=== PATIENT | female | born 1930 | race Caucasian/White ===

== ENCOUNTER 2016-09-01 08:48 | Emergency (ER) | payer MEDICARE, OTHER ==
[2016-09-01] MEDS ORDERED: LISINOPRIL 5 MG TABLET PO STA (11:48)
[2016-09-01] MEDS ORDERED: LISINOPRIL 5 MG TABLET ONE (11:49)
[2016-09-01] MEDS ORDERED: FUROSEMIDE 20 MG TABLET PO STA (13:16)
[2016-09-01] MEDS ORDERED: FUROSEMIDE 20 MG TABLET ONE (13:23)
== END 2016-09-01 13:33 | disposition home or self-care (01) ==
DX: I11.0 Hypertensive heart disease with heart failure (principal); I50.9 Heart failure, unspecified
CPT/HCPCS: 36415; 71020; 80053; 83690; 83735; 83880; 84484; 85025; 93005; 93010; 99283; 99284; A9270

== ENCOUNTER 2016-11-11 08:27 | Emergency (ER) | payer MEDICARE, OTHER ==
--- NOTE | 2016-11-11 08:40 | ED Physician Documentation ---
PD HPI CHEST PAIN - Stated complaint Stated Complaint: R SIDE PAIN - Chief complaint Chief Complaint: General - History obtained from History obtained from: Patient - History of Present Illness Timing - onset: Last night, Yesterday Timing - onset during: Light activity Timing - duration: Days (06/22) Timing - details: Abrupt onset, Still present, Waxing and waning Quality: Aching, Sharp, Pain Location: Right chest (posterolateral ower ribs area.) Improved by: Rest Worsened by: Inspiration, Movement Associated symptoms: No: Shortness of air, Nausea, Feeling faint / dizzy, General Weakness, Palpitations, Cough Similar symptoms before: Has not had sx before Recently seen: Not recently seen Review of Systems Constitutional: denies: Fever, Chills, Myalgias Nose: denies: Rhinorrhea / runny nose, Congestion Throat: denies: Sore throat Cardiac: denies: Palpitations, Pedal edema, Calf pain Respiratory: denies: Cough, Wheezing GI: denies: Abdominal Pain, Nausea, Vomiting : denies: Dysuria, Frequency Skin: denies: Rash, Lesions Neurologic: denies: Focal weakness, Numbness PD PAST MEDICAL HISTORY - Past Medical History Past Medical History: Yes Cardiovascular: Hypertension Respiratory: None Neuro: None Endocrine/Autoimmune: None GI:  HEENT:  - Past Surgical History Past Surgical History: Yes 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 - Present Medications Home Medications: Ambulatory Orders Medication Instructions Recorded Confirmed Culturelle 0 mg PO DAILY 09/01/16 11/11/16 Hydrochlorothiazide 25 mg PO DAILY #30 tablet 09/01/16 11/11/16 Lisinopril 20 mg PO DAILY #30 tablet 09/01/16 11/11/16 Hydrocodone/Acetaminophen [[place] 1 each PO Q6H PRN #20 tablet 11/11/16 5-325 Tablet] Naproxen 375 mg PO BID #20 tablet 11/11/16 - Allergies Allergies/Adverse Reactions: Allergies Allergy/AdvReac Type Severity Reaction Status Date / Time No Known Drug Allergies Allergy Verified 11/11/16 08:35 - Social History Does the pt smoke?: No Smoking Status: Never smoker Does the pt drink ETOH?: Yes Does the pt have substance abuse?: No - Family History Family history: reports: Non contributory PD ED PE NORMAL - Vitals Vital signs reviewed: Yes - General General: Alert and oriented X 3, Well developed/nourished - HEENT HEENT: Ears normal, Pharynx benign - Neck Neck: Supple, no meningeal sign, No adenopathy - Cardiac Cardiac: RRR, No murmur - Respiratory Respiratory: Clear bilaterally - Abdomen Abdomen: Normal bowel sounds, Non tender, Non distended, No organomegaly - Back Back: No spinal TTP, Other (mild tender right posterolateral ribs about 9-11. No rash nor sores. ) - Derm Derm: Normal color, Warm and dry, No rash - Extremities Extremities: No tenderness to palpate, Normal ROM s pain, No edema, No calf tenderness / cord - Neuro Neuro: Alert and oriented X 3, No motor deficit, Normal speech - Psych Psych: Normal mood, Normal affect Results - Vitals Vitals: Vital Signs - 24 hr 11/11/16 11/11/16 08:31 10:52 Temperature 35.9 C L Heart Rate 102 H 84 Respiratory 20 18 Rate Blood Pressure 208/88 H 205/72 H O2 Saturation 97 95 Oxygen O2 Source Room air - Labs Labs: Laboratory Tests 11/11/16 09:54 Urine Color YELLOW Urine Clarity CLEAR Urine pH 5.5 Ur Specific [place] 1.025 Urine Protein NEGATIVE Urine Glucose (UA) NEGATIVE Urine Ketones NEGATIVE Urine Occult Blood NEGATIVE Urine Nitrite NEGATIVE Urine Bilirubin NEGATIVE Urine Urobilinogen 0.2 (NORMAL) Ur Leukocyte Esterase NEGATIVE Ur Microscopic Review NOT INDICATED Urine Culture Comments NOT INDICATED - Rads (name of study) chest Radiology: Prelim report reviewed, EMP read contemporaneously (no acute process) PD MEDICAL DECISION MAKING - ED course Complexity details: reviewed results, considered differential (Pain less with pain meds. BP coming down. She says BP is usually okay. CXR is okay. UA is good. ), d/w patient Departure - Departure Disposition: 01 Home, Self Care Clinical Impression: Right-sided chest pain, Elevated blood pressure reading Condition: Stable Record reviewed to determine appropriate education?: Yes Instructions: ED Chest Pain Pleurisy Follow-Up: Abelardo Hayes MD [Primary Care Provider] - Prescriptions: Naproxen 375 mg PO BID #20 tablet Hydrocodone/Acetaminophen [[place] 5-325 Tablet] 1 each PO Q6H PRN #20 tablet PRN Reason: Pain Comments: Activity as able based on comfort. Naproxen twice daily for 7-10 days. Add Tylenol or Hydrocodone as needed for pains. Recheck with PMD if not improving over the next couple of days, sooner if other symptoms develop. At least one of your blood pressure readings in the ER today was elevated above the normal level. If you have diagnosed high blood pressure in the past, please be sure you are taking your BP medications and eating low salt diet. If you do not have know high BP, then being high today does not mean it is a terminal makeup operator issue. It might be reactively high to the situation that has you here. You should follow up with your primary care to have the blood pressure checked again in the next few days/week or so to see if it is persistently high. If so, then you may need medication or changes in diet/lifestyle to treat it. Discharge Date/Time: 11/11/16 10:57
[2016-11-11] MEDS ORDERED: KETOROLAC 60 MG/2 ML VIAL IM STA (09:08)
[2016-11-11] MEDS ORDERED: HYDROcod/ACETAM 5/325 MG TABLET PO STA (09:09)
[2016-11-11] MEDS ORDERED: KETOROLAC 30 MG/ML VIAL ONE (09:10)
[2016-11-11] MEDS ORDERED: HYDROcod/ACETAM 5/325 MG TABLET ONE (09:11)
--- NOTE | 2016-11-11 09:58 | XRAY Preliminary Report ---
Exam: XR Chest 2 View PA/LAT IMPRESSION: No airspace disease evident. [facility] SITE ID: [id number]
--- NOTE | 2016-11-11 10:01 | XRAY Report ---
EXAM: CHEST RADIOGRAPHY EXAM DATE: 11/11/2016 09:23 AM. CLINICAL HISTORY: Acute Right chest pain with movement/bleeding. COMPARISON: 09/01/2016. TECHNIQUE: 2 views. FINDINGS: Lungs/Pleura: No focal opacities evident. No pleural effusion. No pneumothorax. Normal volumes. Mediastinum: Heart and mediastinal contours are unremarkable. Other: Lower thoracic spine degenerative changes. IMPRESSION: No airspace disease evident. [facility] Referring Provider Line: [phone] SITE ID: [id number]
[2016-11-11 10:16] LABS: BILIRUBIN,URINE NEGATIVE (NEGATIVE); PH,URINE 5.5 PH (5.0-7.5)
[2016-11-11 10:24] LABS: UA CHARGE (STRIP ONLY) YES; UR CULTURE IF IND NOT INDICATED
[2016-11-11 10:53] VITALS: BP 205/72
== END 2016-11-11 10:57 | disposition home or self-care (01) ==
LOC: ED 08:27
DX: R07.9 Chest pain, unspecified (principal); I10 Essential (primary) hypertension
CPT/HCPCS: 71020; 81003; 96372; 99283; A9270; 81001; 87086

== ENCOUNTER 2016-12-14 09:18 | Emergency (ER) | payer MEDICARE, OTHER ==
[2016-12-14 09:25] VITALS: BP 158/84
[2016-12-14] MEDS ORDERED: DEXAMETHASONE 10 MG/ML VIAL PO STA (09:49)
[2016-12-14] MEDS ORDERED: DEXAMETHASONE 10 MG/ML VIAL ONE (09:53)
[2016-12-14] MEDS ORDERED: CHERRY SYRUP 10 ML UDC PO ONE (09:53)
--- NOTE | 2016-12-14 10:03 | ED Physician Documentation ---
PD HPI HEENT - Stated complaint Stated Complaint: R FACE PX - Chief complaint Chief Complaint: Heent - History obtained from History obtained from: Patient, Family - History of Present Illness Timing - onset: How many days ago (3) Timing - duration: Days (3) Timing - details: Abrupt onset, Still present Location: Other (left TMJ) Improves: Other (time) Worsens: Other (chewing) Associated symptoms: Other (ear pain). No: Fever, Congestion, Rhinorrhea, Trismus, Unable to swallow, Swollen nodes, Facial swelling, Headache, Cough Similar symptoms before: Diagnosis (TMD) Recently seen: Emergency Dept - Additional information Additional information: 86 y/o female yawned hard and felt a pop or click in the left TMJ and subsequent pain in the joint. She has had this happen to her a number of times and usually this will resolve in 2 days. This is the third day and she has pain with attempting to eat this morning and she cannot chew on that side without pain. She reports that she is able to talk, has only a discomfort in the area at rest but pain is persistent with chewing. She has some facial asymmetry that is confirmed by her as always present and not changed. Review of Systems Constitutional: denies: Fever Eyes: denies: Decreased vision Ears: reports: Ear pain Nose: denies: Rhinorrhea / runny nose, Congestion Throat: reports: Other (left TMJ pain). denies: Sore throat Cardiac: denies: Chest pain / pressure, Palpitations Respiratory: reports: Dyspnea. 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 - Present Medications Home Medications: Ambulatory Orders Medication Instructions Recorded Confirmed Hydrochlorothiazide 25 mg PO DAILY #30 tablet 09/01/16 12/14/16 Lisinopril 20 mg PO DAILY #30 tablet 09/01/16 12/14/16 Hydrocodone/Acetaminophen [[place] 1 each PO Q6H PRN #20 tablet 11/11/16 12/14/16 5-325 Tablet] Naproxen 375 mg PO BID #20 tablet 11/11/16 12/14/16 Lactobacillus Acidophilus 1 tab PO DAILY 12/14/16 12/14/16 [Probiotic Acidophilus] - Allergies Allergies/Adverse Reactions: Allergies Allergy/AdvReac Type Severity Reaction Status Date / Time No Known Drug Allergies Allergy Verified 12/14/16 09:24 - Social History Does the pt smoke?: No Smoking Status: Never smoker Does the pt drink ETOH?: Yes Does the pt have substance abuse?: No PD ED PE NORMAL - Vitals Vital signs reviewed: Yes (tachy and hypertensive) - General General: Alert and oriented X 3, No acute distress, Well developed/nourished - HEENT HEENT: Atraumatic, PERRL, EOMI, Ears normal, Moist mucous membranes, Pharynx benign, Dentition benign, Other (There is mild tenderness at the left TMJ there is no swelling erythema or deformity. The joint moves through a ROM and she is able to open the mouth widely. The joint is not dislocated. ) - Neck Neck: Supple, no meningeal sign, No bony TTP - Respiratory Respiratory: No respiratory distress - Derm Derm: Normal color, Warm and dry, No rash - Extremities Extremities: No deformity, No edema - Neuro Neuro: No motor deficit, No sensory deficit - Psych Psych: Normal mood, Normal affect Results - Vitals Vitals: Vital Signs - 24 hr 12/14/16 09:22 Temperature 36.7 C Heart Rate 113 H Respiratory 14 Rate Blood Pressure 158/84 H O2 Saturation 100 Oxygen O2 Source Room air PD MEDICAL DECISION MAKING - ED course Complexity details: reviewed old records, reviewed results, re-evaluated patient , considered differential, d/w patient, d/w family ED course: 86 y/o female with pain in the left TMJ after a wide yaw typical with prior symptoms but not resolving in the usual time frame. She does not appear to have a locked jaw or dislocation but persistent pain and the pain is described by her as a discomfort. She is given a single dose of decadron in hopes of reduction in inflammation and resolution of symptoms. Departure - Departure Disposition: 01 Home, Self Care Clinical Impression: Temporal mandibular joint disorder Condition: Stable Instructions: TMD Pain Relief Methods, TMD Self Care Follow-Up: Abelardo Hayes MD [Primary Care Provider] -
== END 2016-12-14 10:32 | disposition home or self-care (01) ==
LOC: ED 09:18
DX: M26.602 Left temporomandibular joint disorder, unspecified (principal); I10 Essential (primary) hypertension
CPT/HCPCS: 99283; A9270

== ENCOUNTER 2017-06-05 09:22 | Emergency (ER) | payer MEDICARE, OTHER ==
[2017-06-05 09:35] VITALS: BP 167/83
[2017-06-05] MEDS ORDERED: DEXAMETHASONE 10 MG/ML VIAL PO STA (09:58)
--- NOTE | 2017-06-05 10:03 | ED Physician Documentation ---
History of Present Illness - Stated complaint Stated Complaint: SWOLLEN FINGER - Chief complaint Chief Complaint: General - History obtained from History obtained from: Patient - History of Present Illness Timing: How many days ago (3) - Additonal information Additional information: 87-year-old female is developed some pain in her right index finger with marked swelling starting about 3 days ago. She has swelling at the PIP and DIP joints as well as the MCP joint. She does not have any swelling over the dorsum of the hand she does not have any lymphangitic streaking. She does not have fever. She states the pain is exquisite and even slight touch to the skin or movement of the joint causes severe sharp pain. She does have a prior history of gout in her toe at one time. Review of Systems Constitutional: denies: Fever, Chills, Myalgias Eyes: denies: Decreased vision Ears: denies: Ear pain Nose: denies: Congestion Throat: denies: Sore throat Respiratory: denies: Cough GI: denies: Vomiting : denies: Dysuria Musculoskeletal: reports: Extremity pain, Joint pain, Joint swelling. 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 - Present Medications Home Medications: Ambulatory Orders Medication Instructions Recorded Confirmed Lisinopril 20 mg PO DAILY #30 tablet 09/01/16 12/14/16 hydroCHLOROthiazide 25 mg PO DAILY #30 tablet 09/01/16 12/14/16 [Hydrochlorothiazide] Hydrocodone/Acetaminophen [[place] 1 each PO Q6H PRN #20 tablet 11/11/16 12/14/16 5-325 Tablet] Naproxen 375 mg PO BID #20 tablet 11/11/16 12/14/16 Lactobacillus Acidophilus 1 tab PO DAILY 12/14/16 12/14/16 [Probiotic Acidophilus] HYDROcod/ACETAM 5/325 [[place] 5/325] 1 - 2 ea PO Q6H PRN #15 tablet 06/05/17 Indomethacin 25 mg PO Q6HR PRN #30 capsule 06/05/17 - Allergies Allergies/Adverse Reactions: Allergies Allergy/AdvReac Type Severity Reaction Status Date / Time No Known Drug Allergies Allergy Verified 12/14/16 09:24 - Social History Does the pt smoke?: No Smoking Status: Never smoker Does the pt drink ETOH?: Yes Does the pt have substance abuse?: No PD ED PE NORMAL - Vitals Vital signs reviewed: Yes (Hypertensive) - General General: Alert and oriented X 3, No acute distress, Well developed/nourished - HEENT HEENT: Atraumatic, PERRL, EOMI - Respiratory Respiratory: No respiratory distress - Derm Derm: Normal color, Warm and dry - Extremities Extremities: Other (There is swelling and erythema to the DIP IP and MCP joints separately. There is no swelling over the dorsum of the hand and no lymphangitic streaking. Distal neurovascular components are intact. There is exquisite pain to movement of the joints.) - Neuro Neuro: No motor deficit, No sensory deficit Eye Opening: Spontaneous Motor: Obeys Commands Verbal: Oriented GCS Score: 15 - Psych Psych: Normal mood, Normal affect Results - Vitals Vitals: Vital Signs - 24 hr 06/05/17 09:29 Temperature 36.4 C L Respiratory 16 Rate Blood Pressure 167/83 H O2 Saturation 96 Oxygen O2 Source Room air PD MEDICAL DECISION MAKING - ED course Complexity details: reviewed old records, considered differential, d/w patient, d/w family ED course: 87-year-old female with swelling to the right index finger over the joints appears to have an acute gouty attack. I do not think this represents any cellulitis. She is administered dexamethasone 10 mg orally here in the emergency department and we will place her on some indomethacin and give her some Vicodin for breakthrough pain. 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
[2017-06-05] MEDS ORDERED: CHERRY SYRUP 10 ML UDC PO ONE (10:06)
== END 2017-06-05 10:10 | disposition home or self-care (01) ==
LOC: ED 09:22
DX: M10.041 Idiopathic gout, right hand (principal); I10 Essential (primary) hypertension
CPT/HCPCS: 99283; A9270

== ENCOUNTER 2017-07-07 08:00 | Outpatient (CLI) | payer MEDICARE, OTHER | END 2017-07-07 08:01 | disposition home or self-care (01) | LOC: LAB.WCP 08:00 | PROVIDERS: ATTEND Physician Assistant Medical | DX: M10.00 Idiopathic gout, unspecified site (principal) | CPT/HCPCS: 87070; 87205 ==

== ENCOUNTER 2017-07-19 08:00 | Outpatient (CLI) | payer MEDICARE, OTHER | END 2017-07-19 08:01 | disposition home or self-care (01) | LOC: LAB.R 08:00 | PROVIDERS: ATTEND Physician Assistant Medical | DX: L03.019 Cellulitis of unspecified finger (principal) | CPT/HCPCS: 87070; 87205 ==

== ENCOUNTER 2017-08-25 20:39 | Outpatient (CLI) | payer MEDICARE, OTHER ==
[2017-08-25 19:05] LABS: CREATININE 1.5 mg/dL (0.4-1.0)
[2017-08-25 19:28] LABS: BILIRUBIN,URINE NEGATIVE (NEGATIVE); GLUCOSE, URINE (UA) NEGATIVE (NEGATIVE); KETONES,URINE (UA) NEGATIVE (NEGATIVE); LEUKOCYTE ESTERASE, URINE NEGATIVE (NEGATIVE); NITRITE,URINE NEGATIVE (NEGATIVE); OCCULT BLOOD,URINE NEGATIVE (NEGATIVE); PH,URINE 5.5 PH (5.0-7.5); PROTEIN,URINE NEGATIVE (NEGATIVE); UROBILINOGEN,URINE 0.2 (NORMAL) E.U./dL (NORMAL)
[2017-08-25 19:47] LABS: CLARITY,URINE CLEAR (CLEAR)
[2017-08-25 19:48] LABS: BACTERIA,URINE Rare /HPF (None Seen); RBC,URINE 0-5 /HPF (0-5); SQUAMOUS EPITHELIAL CELL,UR MANY Squamous (<= Few); YEAST,URINE PRESENT
== END 2017-08-25 20:40 | disposition home or self-care (01) ==
LOC: LAB.WCP 20:39
PROVIDERS: ATTEND Internal Medicine Rheumatology
DX: N18.9 Chronic kidney disease, unspecified (principal)
CPT/HCPCS: 36415; 81001; 82565; 84520

== ENCOUNTER 2017-10-20 08:00 | Outpatient (CLI) | payer MEDICARE, OTHER | END 2017-10-20 08:01 | disposition home or self-care (01) | LOC: LAB.WCP 08:00 | PROVIDERS: ATTEND Internal Medicine Rheumatology | DX: M10.9 Gout, unspecified (principal) | CPT/HCPCS: 36415; 84550 ==

== ENCOUNTER 2017-10-25 20:28 | Outpatient (CLI) | payer MEDICARE, OTHER | END 2017-10-25 20:29 | disposition EMS.NT | LOC: EMS 20:28 | PROVIDERS: ATTEND Surgery | DX: Z03.89 Encounter for observation for other suspected diseases and conditions ruled out (principal); W01.0XXA Fall on same level from slipping, tripping and stumbling without subsequent striking against object, initial encounter; Y92.003 Bedroom of unspecified non-institutional (private) residence as the place of occurrence of the external cause ==

== ENCOUNTER 2017-10-29 14:30 | Outpatient (CLI) | payer MEDICARE, OTHER | END 2017-10-29 14:31 | disposition critical access hospital (66) | LOC: EMS 14:30 | PROVIDERS: ATTEND Surgery | DX: R53.1 Weakness (principal); R47.9 Unspecified speech disturbances; R29.810 Facial weakness; R26.81 Unsteadiness on feet | CPT/HCPCS: A0425; A0427 ==

== ENCOUNTER 2017-10-29 14:43 | Inpatient (IN) | payer MEDICARE, OTHER ==
[2017-10-29 15:00] LABS: BASOPHILS # (AUTO) 0.1 10^3/uL (0.0-0.1); BASOPHILS % (AUTO) 0.6 %; EOSINOPHILS % (AUTO) 0.2 %; LYMPHOCYTES # (AUTO) 0.7 10^3/uL (1.5-3.5); LYMPHOCYTES % (AUTO) 7.8 %; MEAN CORPUSCULAR HEMOGLOBIN 28.2 pg (27.0-31.0); MEAN CORPUSCULAR HGB CONC 33.3 g/dL (32.0-36.0); MEAN CORPUSCULAR VOLUME 84.9 fL (81.0-99.0); MEAN PLATELET VOLUME 7.9 fL (7.9-10.8); MONOCYTES # (AUTO) 0.8 10^3/uL (0.0-1.0); MONOCYTES % (AUTO) 8.6 %; NEUTROPHILS % (AUTO) 82.8 %; PLT - PLATELET COUNT 312 10^3/uL (130-450); RED BLOOD COUNT 4.26 10^6/uL (4.20-5.40); RED CELL DISTRIBUTION WIDTH 18.4 % (12.0-15.0); WHITE BLOOD COUNT 9.6 x10^3/uL (4.8-10.8)
--- NOTE | 2017-10-29 15:04 | ED Physician Documentation ---
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, rx T3 she took the T3 and felt woozy found down 5 days ago by that night, fell on carpet, cause not know but thinks / T3 911 called and came and saw pt - no injury identified, no transport since then she has had slurred speech and diff walking needing assistance from to stand transfer ambulate and dress she also had slurred speech and seemed confused attributed sx to the new T3 rx sx getting worse over last 5 days so called 911 no WORKMAN no neck apin no chest pain no abd pain no fever cough NVD no dysuria Review of Systems Constitutional: denies: Fever, Chills Eyes: denies: Loss of vision Ears: denies: Loss of hearing Cardiac: denies: Chest pain / pressure Respiratory: denies: Dyspnea, Cough GI: reports: Constipation. denies: Abdominal Pain, Nausea, Vomiting, Diarrhea : denies: Dysuria Musculoskeletal: denies: Neck pain, Back pain Neurologic: reports: Focal weakness, Difficulty speaking. 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 - Present Medications Home Medications: Ambulatory Orders Medication Instructions Recorded Confirmed Lactobacillus Acidophilus 1 tab PO DAILY 12/14/16 10/29/17 [Probiotic Acidophilus] Allopurinol [Allopurinol] 200 mg PO DAILY 10/29/17 10/29/17 Cholecalciferol (Vitamin D3) 1,000 unit PO DAILY 10/29/17 10/29/17 [Vit[place]oy Daily D] Colchicine [Colchicine] 0.6 mg PO .EVERY OTHER DAY 10/29/17 10/29/17 Cyclobenzaprine HCl 10 mg PO TID PRN 10/29/17 10/29/17 Lisinopril [Lisinopril] 40 mg PO DAILY 05/11/18 05/11/18 Multivitamin [Theragran] 1 each PO DAILY 10/29/17 10/29/17 - Allergies Allergies/Adverse Reactions: Allergies Allergy/AdvReac Type Severity Reaction Status Date / Time No Known Drug Allergies Allergy Verified 12/14/16 09:24 - Social History Does the pt smoke?: No Smoking Status: Never smoker Does the pt drink ETOH?: Yes Does the pt have substance abuse?: No PD ED PE NORMAL - Vitals Vital signs reviewed: Yes - General General: No: Alert and oriented X 3 (little confused and agitated) - HEENT HEENT: PERRL. No: Atraumatic - Neck Neck: No bony TTP - Cardiac Cardiac: RRR - Respiratory Respiratory: No respiratory distress, Clear bilaterally, Other (L masectomy, large hard irreg R breast mass with necrotic appearing tissue at the nipple) - Abdomen Abdomen: Non tender - Derm Derm: Normal color - Extremities Extremities: No deformity, No tenderness to palpate - Neuro Neuro: No sensory deficit (diff to assess). 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, No motor deficit, Normal speech Eye Opening: Spontaneous Motor: Obeys Commands Verbal: Confused GCS Score: 14 - Psych Psych: Normal mood Results - Vitals Vitals: Vital Signs - 24 hr 10/29/17 10/29/17 10/29/17 14:46 16:01 17:56 Temperature 36.7 C Heart Rate 108 H 100 108 H Respiratory 24 21 24 Rate Blood Pressure 192/97 H 187/85 H 199/105 H O2 Saturation 95 95 98 Oxygen O2 Source Room air - EKG (time done) 1536 Rate: Rate (enter#) (101) Rhythm: NSR Intervals: Normal PA, Prolonged QT Ischemia: Non specific changes - Labs Labs: Laboratory Tests 10/29/17 10/29/17 10/29/17 14:55 14:55 14:55 WBC 9.6 RBC 4.26 Hgb 12.0 Hct 36.2 L MCV 84.9 MCH 28.2 MCHC 33.3 RDW 18.4 H Plt Count 312 MPV 7.9 Neut # 8.0 H Lymph # 0.7 L [place] # 0.8 Eos # 0.0 Baso # 0.1 Absolute Nucleated RBC 0.00 Nucleated RBC % 0.0 PT 11.8 INR 1.0 APTT 28.9 Sodium 138 Potassium 4.6 Chloride 106 Carbon Dioxide 21 Anion Gap 11.0 BUN 43 H Creatinine 1.6 H Estimated GFR (MDRD) 31 L Glucose 136 H Lactic Acid Calcium 9.8 Urine Color Urine Clarity Urine pH Ur Specific [place] Urine Protein Urine Glucose (UA) Urine Ketones Urine Occult Blood Urine Nitrite Urine Bilirubin Urine Urobilinogen Ur Leukocyte Esterase Ur Microscopic Review Urine Culture Comments 10/29/17 10/29/17 15:55 16:55 WBC RBC Hgb Hct MCV MCH MCHC RDW Plt Count MPV Neut # Lymph # [place] # Eos # Baso # Absolute Nucleated RBC Nucleated RBC % PT INR APTT Sodium Potassium Chloride Carbon Dioxide Anion Gap BUN Creatinine Estimated GFR (MDRD) Glucose Lactic Acid 1.1 Calcium Urine Color YELLOW Urine Clarity CLEAR Urine pH 5.5 Ur Specific [place] 1.025 Urine Protein TRACE Urine Glucose (UA) NEGATIVE Urine Ketones TRACE Urine Occult Blood TRACE-INTA Urine Nitrite NEGATIVE Urine Bilirubin NEGATIVE Urine Urobilinogen 0.2 (NORMAL) Ur Leukocyte Esterase NEGATIVE Ur Microscopic Review NOT INDICATED Urine Culture Comments NOT INDICATED - Rads (name of study) CTH Radiology: See rad report (chronic R cerebellar infarct no acute mass /shift/ bleed) CTCS Radiology: See rad report (no fx) CXR Radiology: See rad report (possible fx R rib (pt non tender), R breast mass, elevated R hemidiaphragm with plate like densities) PD MEDICAL DECISION MAKING - ED course ED course: pt with sx suggesting CVA per hx from sounds progressive over up to 5 days so not a TPA candidate also with a large R breast mass needs MRI to determine if this is CAV or underlying intracranial mass also pt was seeing PMD about back pain which led to the T3 rx which may have contributed - given breast mass would rec advanced spine imaging as well could not get CT angio 2/2 low GFR cannot stand unassisted at this time will need MRI brain, MRA brain carotid dopplers, PT assessment etc will admit called hospitalist at 1630 Departure - Departure Disposition: 66 [facility] DC/Xfer Clinical Impression: Facial droop, Breast mass Altered mental status Qualifiers: Altered mental status type: unspecified Qualified Code(s): R41.82 - Altered mental status, unspecified Fall Qualifiers: Encounter type: initial encounter Qualified Code(s): W19.XXXA - Unspecified fall, initial encounter Condition: Fair Discharge Date/Time: 10/29/17 18:53 NIHSS - Time Time: 15:20 - Level of Consciousness Level of consciousness: (0) Alert, Keenly responsive LOC Questions: (1) Answers one Q correctly LOC Commands: (0) Performs both correctly - Gaze Best Gaze: (0) Normal - Visual Visual: (0) No loss - Facial Palsy Facial Palsy: (1) Minor paralysis - Motor Arms (both separate) Motor Arm (right): (0) No drift Motor Arm (left): (0) No drift - Motor Legs (both separate) Motor Leg (right): (0) No drift Motor Leg (left): (0) No drift - Limb Ataxia Limb Ataxia: (2) Present in 2 limbs - Sensory Sensory: (0) Normal - Best Language Best Language: (1) [id number] - Dysarthria Dysarthria: (1) [id number] dysarthria - Extinction and Inattention (formally neg Extinction and inattention: (0) No abnormality - Total Score/Results Total Score/Result: 6
[2017-10-29 15:07] LABS: CALCIUM 9.8 mg/dL (8.5-10.3); CREATININE 1.6 mg/dL (0.4-1.0)
[2017-10-29 15:09] LABS: PT - PROTHROMBIN TIME 11.8 secs (9.9-12.6)
--- NOTE | 2017-10-29 15:32 | CT Preliminary Report ---
Exam: CT HEAD W/O STROKE PROTOCOL IMPRESSION: 1. Generalized age-related cortical atrophic changes without evidence of acute intracranial abnormali ty. 2. Chronic right cerebellar infarct. [facility] The call report notification system was initiated by Dr. Ana Garcia at 15:17 hrs on 10/29/17. The above findings were discussed with Gema Cunningham by Dr. Ana Garcia at 15:30 hrs on 10/29/17 . SITE ID: [id number]
--- NOTE | 2017-10-29 15:37 | CT Report ---
EXAM: CT CERVICAL SPINE WITHOUT CONTRAST. DATE: 10/29/2017 03:09 PM. HISTORY: Fell, neuro sx. COMPARISONS: None. TECHNIQUE: Thin-section axial images were acquired of the cervical spine without contrast. Post-proce ssing: Coronal and sagittal reformats. Other: None. In accordance with CT protocol optimization, one or more of the following dose reduction techniques w ere utilized for this exam: automated exposure control, adjustment of mA and/or KV based on patient s ize, or use of iterative reconstructive technique. FINDINGS: Alignment: Gentle convex right curvature of the cervical spine noted. 2 mm of C3 on C4 and 2 mm of C4 on C5 and 2 mm of C7 on T1 anterolisthesis is likely degenerative in origin. Bones: No acute fracture. Patchy asymmetric sclerosis and trabecular thickening in the right C1 verte bral body, image 8, 62. Thickening of the trabecula is also present at the T2 vertebral body. No defi nite cortical breakthrough or accompanying mass. Interspace Levels/Facets: Diffuse degenerative disk and facet arthropathy is noted. There is at least moderate C1-C2 degenerative changes noted at the dens and C1 body articulation. The most severe dege nerative disease includes severe C5-C6 and C6-C7 degenerative disk disease with prominent disk osteop hytes. Severe diffuse facet arthropathy most severe at the right C3-C4 and C4-C5 and C7-T1 and left C 2-C3 levels. Musculature: Normal. No fatty atrophy. Other: The paravertebral and prevertebral soft tissues are unremarkable. The lung apices are clear. IMPRESSION: 1. No acute fracture. 2. Normal prevertebral soft tissues. 3. 2 mm of C3 on C4 and 2 mm of C4 on C5 and 2 mm of C7 on T1 anterolisthesis, likely degenerative in origin. 4. Diffuse degenerative disk and facet arthropathy with the most severe disease at the C5-C6 and C6-C 7 levels. [facility] Referring Provider Line: [phone] SITE ID: [id number]
--- NOTE | 2017-10-29 15:38 | CT Report ---
EXAM: CT HEAD EXAM DATE: 10/29/2017 03:07 PM. CLINICAL HISTORY: Slurred speech, left facial droop, fell. COMPARISON: None. TECHNIQUE: Multiaxial CT images were obtained from the foramen magnum to the vertex. Reformats: Coron al. IV contrast: None. In accordance with CT protocol optimization, one or more of the following dose reduction techniques w ere utilized for this exam: automated exposure control, adjustment of mA and/or KV based on patient s ize, or use of iterative reconstructive technique. FINDINGS: Parenchyma: No intraparenchymal hemorrhage. No evidence of mass, midline shift, or CT findings of acu te infarction. Cespedes-white differentiation is distinct. Diffuse chronic microangiopathic white matter changes are evident. Old right cerebellar infarct. Extraaxial Spaces: Normal for age. No subdural or epidural collections identified. Ventricles: The ventricles and cortical sulci are enlarged, consistent with age-related tissue loss. Sinuses and orbits: Imaged paranasal sinuses, orbits, and mastoids show no significant abnormality. Bones: No evidence of fracture or calvarial defect. Other: Status post bilateral lens replacements noted. IMPRESSION: 1. Generalized age-related cortical atrophic changes without evidence of acute intracranial abnormali ty. 2. Chronic right cerebellar infarct. [facility] The call report notification system was initiated by Dr. Ana Garcia at 15:17 hrs on 10/29/17. The above findings were discussed with Gema Cunningham by Dr. Ana Garcia at 15:30 hrs on 10/29/17 . Referring Provider Line: [phone] SITE ID: [id number]
--- NOTE | 2017-10-29 16:00 | XRAY Preliminary Report ---
Exam: XR CHEST 1 VIEW X-RAY IMPRESSION: 1. Elevated right hemidiaphragm with platelike densities. 2. No large effusions or pneumothorax. 3. Masslike enlargement of the right breast. Correlate clinically. 4. Probable mildly displaced anterolateral right second rib. [facility] SITE ID: [id number]
--- NOTE | 2017-10-29 16:09 | XRAY Report ---
EXAM: CHEST RADIOGRAPHY EXAM DATE: 10/29/2017 03:33 PM. CLINICAL HISTORY: Weakness after a fall. Breast mass. COMPARISON: 11/11/2016. TECHNIQUE: 1 view. FINDINGS: Lungs/Pleura: No new consolidation, effusions or pneumothorax. Decreased right lung volumes with patc hy right lower lobe densities. Elevated right hemidiaphragm has increased since the prior study. Mediastinum: Within exam limitations, the cardiomediastinal contour is normal. Other: Asymmetric mass-like enlargement of the right breast. EKG leads overlie the chest. Cortical step-off in the inferolateral right-sided rib suggestive of an acute fracture. IMPRESSION: 1. Elevated right hemidiaphragm with plate-like densities. 2. No large effusions or pneumothorax. 3. Mass-like enlargement of the right breast. Correlate clinically. 4. Probable mildly displaced inferolateral right-sided rib. [facility] Referring Provider Line: [phone] SITE ID: [id number]
[2017-10-29 17:06] LABS: GLUCOSE, URINE (UA) NEGATIVE (NEGATIVE); KETONES,URINE (UA) TRACE mg/dL (NEGATIVE); LEUKOCYTE ESTERASE, URINE NEGATIVE (NEGATIVE); NITRITE,URINE NEGATIVE (NEGATIVE); OCCULT BLOOD,URINE TRACE-INTA (NEGATIVE); PH,URINE 5.5 PH (5.0-7.5); PROTEIN,URINE TRACE mg/dL (NEGATIVE); UROBILINOGEN,URINE 0.2 (NORMAL) E.U./dL (NORMAL)
[2017-10-29 17:09] LABS: CLARITY,URINE CLEAR (CLEAR)
[2017-10-29 17:10] LABS: BILIRUBIN,URINE NEGATIVE (NEGATIVE); ICTOTEST,URINE NEGATIVE
[2017-10-29] MEDS ORDERED: LABETALOL 20 MG/4 ML SYRINGE IVP PRN (21:45)
[2017-10-29] MEDS ORDERED: LACTATED RINGERS 500 ML IV ONE (21:49)
[2017-10-29] MEDS ORDERED: CYCLOBENZAPRINE 10 MG TABLET PO PRN (21:50)
[2017-10-29] MEDS: COLCHICINE 0.6 MG TABLET PO SCH (22:33)
[2017-10-29] MEDS ORDERED: LABETALOL 5 MG/1 ML 20 ML MDV IVP PRN (23:38)
--- NOTE | 2017-10-29 23:40 | HISTORY & PHYSICAL EXAMINATION ---
DATE OF SERVICE: 10/29/2017 Physician: Mariella Richey MD PRIMARY CARE PHYSICIAN: Lester Hayes MD SOURCE OF HISTORY: The patient was a poor historian, but she provided basic history. In addition, I interviewed her over the telephone and I reviewed ER sign out. HISTORY OF PRESENT ILLNESS: Ms. Marquez is an 87-year-old white female with past medical history of osteoarthritis, hypertension, gout and breast cancer. The patient reports that she underwent left-sided mastectomy a few years ago. Subsequently, she did not receive chemotherapy and it seems that she did not have a follow-up with Oncology or with any other physician regarding the breast cancer. The patient was brought into the ER due to difficulty ambulating, disequilibrium, suffering several mechanical falls. In addition, having back pain. Reviewing the ER record, it seems that the patient saw her primary care physician about five days ago for back pain. She was given Tylenol No. 3 after which she was somewhat more unsteady on her feet than before. There was questionable confusion, slurred speech as well. Per ER report, the patient had a left-sided facial droop, slurred speech and initial diagnosis of possible cerebrovascular accident was entertained. The onset was not acute and she was definitely out of therapeutic window to receive TPA or intervene. In talking to the patient, she tells me that she feels "fine." She denies any focal neurologic complaints such as numbness, weakness, facial asymmetry. She is [place] descent. She speaks Turkish and in Georgian she does have an accent. She does not think that her speech is slurred. Interviewing her, however, it is noticeable that there is flattening of the left nasolabial fold. Talking to her , he states that he is 89 years old, elderly and he needs time to discuss workup and to process information. The patient and her are not quite on the same page regarding goals of care. The tells me that he would want aggressive interventions and full code status for the patient. However, the patient says she "lived a beautiful 87 years." She mainly wants to be left alone. She said that she would not want any aggressive intervention. When I examined her, I actually noticed an ulcerating large right-sided breast mass. She told me that she noticed that quite some time ago. She would not want any surgery and she would not consider chemotherapy. Again, she tells me repeatedly that she just wanted to be left alone. I spent about 25 minutes discussing code status with the patient's . I told him the constellation of symptoms and admission workup which suggest advanced metastatic disease and in that case aggressive intervention would not be in the patient's best interest, plus she really declines anything aggressive. In that context full code status would be inappropriate. At this point, the agrees to have palliative care consultation and he is open to further discuss code status; however, at this point he tells me he is adamant about FULL CODE status. When I asked the patient about code status, she says she does not know, and she would go with whatever her says. Regarding the ER workup, CT scan of the brain showed chronic right cerebellar infarct, no acute abnormality. Chest x-ray showed a right displaced rib fracture and it does describe the right-sided large breast mass, which was seen on physical exam. Laboratory showed creatinine of 1.6, BUN 46, normal white blood cell count. Unremarkable urinalysis. Normal lactic acid. EKG with sinus tachycardia, no acute ST abnormality. PAST MEDICAL HISTORY 1. Osteoarthritis. 2. Gout. 3. Hypertension. 4. History of breast cancer, status post left-sided mastectomy, lost followup. 5. Status post hysterectomy. 6. History of cataracts. 7. Chronic renal insufficiency. Creatinine in the past was between 1.4 and 1.6. SOCIAL HISTORY: The patient does not smoke. She ambulates without assistive devices. She lives with her . FAMILY HISTORY: Positive for cerebrovascular accident and coronary artery disease. CODE STATUS: I had an extensive discussion with the . He is adamant about FULL CODE. The patient herself does not want intervention and in fact, she wants more like a comfort focused care. However, about CODE STATUS she would say she does not know. Therefore, at this point, she is FULL CODE and further discussion should be happening between the , the patient and palliative care. OUTPATIENT MEDICATIONS INCLUDED: 1. Lisinopril. 2. Allopurinol. 3. Lactobacillus. 4. Colchicine. 5. Multivitamin. 6. Cholecalciferol. 7. Flexeril. REVIEW OF SYSTEMS: Please see pertinent positives listed above in history of present illness. I complete 12-point review, the patient essentially denied all complaints. PHYSICAL EXAMINATION VITAL SIGNS: Temperature 36.7, heart rate 100, blood pressure 199/105, respiratory rate 24, oxygen saturation 98% on room air. GENERAL: The patient is a well-developed, chronically ill-appearing female, who was not in acute distress. MUSCULOSKELETAL: Ulcerating hard infiltrating right-sided breast mass with axillary lymphadenopathy. Left side is status post mastectomy. NEUROLOGIC: Flattening of the nasolabial fold, ataxia, mild dysarthria versus a Turkish accent. It is hard to tell what is the patient's baseline speech like. PSYCHIATRIC: Cooperative. CARDIOVASCULAR: S1, S2 regular, tachycardia. I could not hear murmur, rub or gallop in the setting of fast heart rate. RESPIRATORY: Clear to auscultation without wheezes or crackles. No increased work of breathing. ABDOMEN: Distended. No tenderness. No guarding, no rebound. Bowel tones hypoactive. LYMPH: No lymphedema. SKIN: Without jaundice or pallor. ASSESSMENT AND PLAN 1. Ms. Marquez is an 87-year-old female who is getting admitted with possible focal neurologic symptoms, which include slurred speech, facial asymmetry and disequilibrium. Interviewing her , it seems that she had been undergoing functional decline and has worsening back pain. She is found with a large ulcerating breast mass. In addition, there is a right-sided rib fracture and I suspect that the patient has advanced metastatic disease secondary to breast cancer. She most likely has a pathologic right-sided rib fracture. In addition, she could also have back pain secondary to vertebral pathologic fractures. Her focal neurologic deficits could be secondary to brain metastatic disease. 2. Uncontrolled hypertension and tachycardia. 3. CODE STATUS: CURRENTLY FULL CODE; however, the patient really does not want any intervention. Her has somewhat difficulty understanding the hospital workup and the consequences and what it means to have advanced metastatic disease. I had a long conversation with him and he does understand that the patient wishes no surgery, no chemotherapy and no intervention for the breast cancer. He also understands that this is advanced disease and likely will require end of life care. At the same time, he is not on board limiting the patient's code status at this point. He will require further information and discussion. 4. Chronic renal insufficiency, creatinine in the upper range of baseline. 5. Old cerebellar infarct on CT scan of the brain, this is not likely to cause the patient's symptoms. 6. Recent functional decline likely secondary to advanced metastatic disease plus/minus patient could also have acute cerebrovascular accident or other additional pathology. PLAN AND ORDERS 1. Patient is getting admitted as inpatient. 2. I will control her blood pressure with p.r.n. labetalol somewhat being between stroke parameters and normal blood pressure to provide good brain perfusion; however, prevent hypertension, which could precipitate bleeding of metastatic lesions. I will have a blood pressure goal of 150-160 systolic. Parameters were added for labetalol. 3. I ordered palliative care consult to clarify goals of care prior to ordering any extensive workup or monitoring. 4. To evaluate for metastatic brain disease, I did order an MRI of the brain as the will likely want additional information regarding diagnosis. 5. Deep venous thrombosis prophylaxis with Venodyne boots, if the patient would have brain lesions there would be risk for bleeding; therefore, I will not use heparin product. 6. Given a creatinine in the upper range of baseline, I will hold lisinopril and give a small fluid bolus overnight. 7. For now, I will avoid close monitoring, frequent lab work as this seems to be more consistent with the patient's wishes. Tomorrow efforts should be made with palliative care to get the patient and the on the same page regarding goals of care. ATTESTATION: I certify that the reasonable expectation for this patient is to remain hospitalized for at least 48 hrs, but discharge or transfer to another facility within 96 hrs. Time spent in the care of this patient was 50 minutes admitting her and about 25 minutes advance care planning: discussing her care, workup and goals of care with the patient's over the telephone. TD: 10/29/2017 23:38 ABDIRAHMAN
[2017-10-30] MEDS: SODIUM CHLORIDE FLUSH 0.9% 10 ML SYRINGE IVP SCH ×3 (00:31→16:30)
[2017-10-30] MEDS ORDERED: MORPHINE 2 MG/ML SYRINGE IVP PRN (00:36)
[2017-10-30] MEDS ORDERED: HYDROcod/ACETAM 5/325 MG TABLET PO PRN (00:37)
[2017-10-30] MEDS ORDERED: LACTOBACILLUS ACIDOPHILUS PO SCH (09:00)
[2017-10-30] MEDS ORDERED: CHOLECALCIFEROL 1000 UNIT PO SCH (09:00)
[2017-10-30] MEDS: CHOLECALCIFEROL 1,000 UNIT TABLET PO SCH (10:36)
[2017-10-30] MEDS: LACTOBACILLUS RHAMNOSUS GG CAPSULE PO SCH (10:36)
[2017-10-30] MEDS: MULTIVITAMIN TABLET PO SCH (10:36)
[2017-10-30] MEDS: ALLOPURINOL 100 MG TABLET PO SCH (10:36)
[2017-10-30] MEDS: POLYETHYLENE GLYCOL 3350 17 GM PACKET PO SCH (10:37)
--- NOTE | 2017-10-30 14:02 | PROVIDER PROGRESS NOTE ---
Subjective - Prog Note Date Prog Note Date: 10/30/17 Prog Note Time: 14:02 - Subjective Pt reports feeling: No change Subjective: Jeremiah, the patient's is present during her exam. Her only complaint is that she just wants to go home, but according to her , she has been falling and more confused lately. She denies SOB, chest pain, N/V or a new cough. Current Medications - Current Medications Current Medications: Active Medications Acetaminophen (Tylenol) 650 mg PO Q4HR PRN PRN Reason: Pain or Fever > 38C (100.4F) Allopurinol (Zyloprim) 200 mg PO DAILY [facility] Last Admin: 10/30/17 10:36 Dose: 200 mg Cholecalciferol (Vitamin D3) 1,000 unit PO DAILY [facility] Last Admin: 10/30/17 10:36 Dose: 1,000 unit Colchicine (Colcrys) 0.6 mg PO QOD [facility] Last Admin: 10/29/17 22:33 Dose: 0.6 mg Docusate Sodium (Colace 250mg Capsule) 250 - 500 mg PO DAILY [facility] Last Admin: 10/30/17 14:07 Dose: 250 mg Haloperidol (Haldol Inj) 0.5 mg IVP Q8HR PRN PRN Reason: PAIN Haloperidol (Haldol) 1 mg PO Q4H PRN PRN Reason: Agitation Piperacillin Sod/Tazobactam (Sod 3.375 gm/ Sodium Chloride) 100 mls @ 200 mls/ hr IV Q6H [facility] Sodium Chloride (Normal Saline 0.9%) 1,000 mls @ 125 mls/hr IV .Q8H [facility] Lactobacillus Rhamnosus (Culturelle) 1 cap PO DAILY [facility] Last Admin: 10/30/17 10:36 Dose: 1 cap Metoprolol Tartrate (Lopressor) 25 mg PO BID [facility] Multivitamins (Theragran) 1 tab PO DAILY [facility] Last Admin: 10/30/17 10:36 Dose: 1 tab Olanzapine (Zyprexa Odt) 5 mg TL DAILY [facility] Last Admin: 10/30/17 16:28 Dose: 5 mg Polyethylene Glycol (Miralax) 17 gm PO DAILY [facility] Last Admin: 10/30/17 10:37 Dose: Not Given Psyllium Hydrophilic Mucilloid (Metamucil) 1 packet PO DAILY [facility] Senna (Senokot) 8.6 - 17.2 mg PO DAILY [facility] Last Admin: 10/30/17 14:06 Dose: 17.2 mg Sodium Chloride (Normal Saline Flush 0.9%) 10 ml IVP PRN PRN PRN Reason: NEEDED PER PROVIDER ORDERS Sodium Chloride (Normal Saline Flush 0.9%) 10 ml IVP 0100,0900,1700 [facility] Last Admin: 10/30/17 16:30 Dose: 10 ml Lactobacillus Acidophilus [Probiotic Acidophilus] 1 tab PO DAILY 12/14/16 Allopurinol [Allopurinol] 200 mg PO DAILY 10/29/17 Cholecalciferol (Vitamin D3) [Vitajoy Daily D] 1,000 unit PO DAILY 10/29/17 Colchicine [Colchicine] 0.6 mg PO .EVERY OTHER DAY 10/29/17 Cyclobenzaprine HCl 10 mg PO TID PRN 10/29/17 Lisinopril [Lisinopril] 40 mg PO DAILY 10/29/17 Multivitamin [Theragran] 1 each PO DAILY 10/29/17 Objective - Vital Signs/Intake & Output Reviewed Vital Signs: Yes Vital Signs: Vital Signs x48h Pulse Resp BP Pulse Ox 10/30/17 12:25 157/87 H 10/30/17 10:55 107 H 18 187/88 H 96 Intake & Output: Intake & Output 10/27/17 10/28/17 10/29/17 10/30/17 23:59 23:59 23:59 23:59 Intake Total 500 490 Output Total 1 Balance 500 489 - Objective General Appearance: positive: Alert, Moderate distress, Anxious Eyes Bilateral: positive: Normal inspection, PERRL Eyes: OU Conjunctivae pale, OU Scleral icterus ENT: positive: ENT inspection nml, Pharyngeal erythema, Dry mucous membranes Neck: positive: Nml inspection, Trachea midline, Lymphadenopathy (R), Lymphadenopathy (L), Stiff neck Respiratory: positive: Chest non-tender, No respiratory distress, Other ( crackles in both bases.) Cardiovascular: positive: Irregularly irregular, Tachycardia, Systolic murmur, Decreased pulse(s) Peripheral Pulses: 1+ Radial (R), 1+ Radial (L) Abdomen: positive: Non-tender, Nml bowel sounds, Other (rounded, soft) Back: positive: Nml inspection Skin: positive: No rash, Warm, Dry, Pallor Extremities: positive: Non-tender, Full ROM, Pedal edema, Joint swelling Neurologic/Psychiatric: positive: Disoriented to place, Disoriented to time, Weakness, Sensory loss, Slurred/abnml speech, Depressed mood/affect Reflexes: Bicep (R): 1+, Bicep (L): 1+ - Lab Results Fish Bones: 10/30/17 17:25 10/30/17 17:25 - Diagnostic Imaging Diagnostic Imaging Results: positive: Final report reviewed ABX Reporting Has patient been on IV antibiotics over the past 48 hours?: Yes Assessment/Plan - Problem List (1) Tachycardia Impression: The patient is noted to have heart rates between 100-120. She is not prescribed any heart rate control medications at home. This is likely due to her agitated state. Plan: Metoprolol 25 BID today. Telemetry was discontinued for patient comfort. (2) Altered mental status Impression: The patient appears profoundly confused today during her exam and keeps stating that "she just wants to go home". Plan: Continue to patient financial counselor and Zyprexa has been prescribed. Qualifiers: Altered mental status type: unspecified Qualified Code(s): R41.82 - Altered mental status, unspecified (3) Breast mass Impression: The patient is noted to have a right breast mass with a possible dislocated rib. The patient has a history of a left breast mastectomy. The patient's is in agreement with no further treatment. Plan: Monitor and treat for pain. (4) Fall Impression: The patient's most recent fall was ~2 weeks ago, according to Jeremiah. She did not have an injury from this and it was a witnessed fall. The patient is likely going to need 24 hour care. Plan: Continue fall precautions. Qualifiers: Encounter type: initial encounter Qualified Code(s): W19.XXXA - Unspecified fall, initial encounter (5) Congestive heart failure Impression: The patient has a known history of this, and upon chart review with [facility]. Plan: Echo is pending for AM. (6) Hypertension Impression: The patient is noted to be hypertensive at 188/87 and tachycardic about 100. Telemetry has been discontinued. Metoprolol XL 25mg BID was added. Plan: Continue metoprolol and monitor vital signs. Qualifiers: Hypertension type: essential hypertension Qualified Code(s): I10 - Essential (primary) hypertension (7) Multi-infarct dementia Impression: As per MRI imaging results, the patient has had several old CVAs. She does demonstrate evidence of this. The MRI was negative for brain mets or acute infarcts. The patient was given tylenol #3 out patient which may have led to her recent AMS. Plan: Avoid narcotics.
[2017-10-30] MEDS: SENNA 8.6 MG TABLET PO SCH (14:06)
[2017-10-30] MEDS: DOCUSATE SODIUM 250 MG CAPSULE PO SCH (14:07)
--- NOTE | 2017-10-30 14:51 | MRI Preliminary Report ---
Exam: MRI BRAIN W/O Impression: No acute infarct, masses, or other discrete acute intracranial process identified. Additional finding s as above. SITE ID: [id number]
--- NOTE | 2017-10-30 15:02 | MRI Report ---
EXAM: MRI BRAIN WITHOUT CONTRAST COMPARISON: CT head, 10/29/2017. CLINICAL HISTORY: CVA. TECHNIQUE: Multiplanar multisequence imaging is performed through the head without contrast. FINDINGS: Diffusion-weighted imaging shows no acute infarct. Gradient sequence shows no evident prior parenchymal hemorrhage. T2 FLAIR imaging shows extensive white matter T2 prolongation, concordant with small vessel angiopath y and prior lacunar infarcts. Redemonstrated is ventricular prominence, presumed to reflect volume loss. Qualitative asymmetric hippocampal volume loss is noted, clinical correlation with memory difficulty suggested. Cerebellar volume loss is noted. No middle ear effusions. No abnormal elevated T1 signal in the brain parenchyma. Pituitary fossa, clivus and foramen magnum are unremarkable. Visualized orbits, paranasal sinuses and calvarium are relatively unremarkable. IMPRESSION: No acute infarct, masses, or other discrete acute intracranial process identified. Additional finding s as above. Referring Provider Line: [phone] SITE ID: [id number]
[2017-10-30] MEDS ORDERED: METOPROLOL SUCCINATE 25 MG TABLET PO SCH (16:04)
[2017-10-30] MEDS ORDERED: cloNIDine 0.2 MG PATCH TOP SCH (17:00)
[2017-10-30] MEDS ORDERED: OLANZapine ODT 5 MG TABLET TL SCH (17:00)
[2017-10-30 17:33] LABS: BASOPHILS % (AUTO) 0.5 %; EOSINOPHILS # (AUTO) 0.1 10^3/uL (0.0-0.7); EOSINOPHILS % (AUTO) 0.7 %; HGB - HEMOGLOBIN 12.5 g/dL (12.0-16.0); LYMPHOCYTES # (AUTO) 0.7 10^3/uL (1.5-3.5); LYMPHOCYTES % (AUTO) 7.4 %; MEAN CORPUSCULAR HEMOGLOBIN 26.8 pg (27.0-31.0); MEAN CORPUSCULAR HGB CONC 31.5 g/dL (32.0-36.0); MEAN CORPUSCULAR VOLUME 85.2 fL (81.0-99.0); MONOCYTES # (AUTO) 0.7 10^3/uL (0.0-1.0); NEUTROPHILS # (AUTO) 7.6 10^3/uL (1.5-6.6); NEUTROPHILS % (AUTO) 83.4 %; PLT - PLATELET COUNT 373 10^3/uL (130-450); RED BLOOD COUNT 4.66 10^6/uL (4.20-5.40); RED CELL DISTRIBUTION WIDTH 18.4 % (12.0-15.0); WHITE BLOOD COUNT 9.1 x10^3/uL (4.8-10.8)
[2017-10-30 17:46] LABS: ALBUMIN 2.8 g/dL (3.2-5.5); ALBUMIN/GLOBULIN RATIO 0.8 (1.0-2.2); BILIRUBIN,TOTAL 1.2 mg/dL (0.2-1.0); CALCIUM 9.4 mg/dL (8.5-10.3); CREATININE 1.4 mg/dL (0.4-1.0); TOTAL PROTEIN 6.5 g/dL (6.7-8.2)
[2017-10-30] MEDS ORDERED: ACETAMINOPHEN 325 MG TABLET PO PRN (18:38)
[2017-10-30] MEDS ORDERED: HALOPERIDOL 1 MG TABLET PO PRN (18:40)
[2017-10-30] MEDS ORDERED: PIPERACILLIN/TAZOBACTAM 3.375 GM in SODIUM CHLORIDE 0.9% MINIBAG 100 ML IV SCH ×5 (19:00→23:00)
[2017-10-30] MEDS: PSYLLIUM PACKET PO SCH (19:30)
[2017-10-30] MEDS: SODIUM CHLORIDE 0.9% 1,000 ML IV SCH (19:31)
[2017-10-30] MEDS: SODIUM CHLORIDE FLUSH 0.9% 10 ML SYRINGE IVP PRN (19:40)
[2017-10-30] MEDS: METOPROLOL TARTRATE 25 MG TABLET PO SCH (20:58)
[2017-10-30] MEDS: HALOPERIDOL 5 MG/ML VIAL IVP PRN (23:11)
[2017-10-31] MEDS: SODIUM CHLORIDE FLUSH 0.9% 10 ML SYRINGE IVP SCH ×3 (01:52→16:25)
[2017-10-31] MEDS: SODIUM CHLORIDE 0.9% 1,000 ML IV SCH (03:58)
[2017-10-31] MEDS: HALOPERIDOL 5 MG/ML VIAL IVP PRN ×3 (05:23→14:27)
[2017-10-31] MEDS ORDERED: CYCLOBENZAPRINE 10 MG TABLET PO PRN (06:38)
[2017-10-31] MEDS ORDERED: MORPHINE 10 MG/ML VIAL IVP ONE (06:44)
[2017-10-31] MEDS: SODIUM CHLORIDE FLUSH 0.9% 10 ML SYRINGE IVP PRN (07:05)
[2017-10-31] MEDS ORDERED: SENNA 8.6 MG TABLET PO SCH (09:00)
[2017-10-31] MEDS ORDERED: DOCUSATE SODIUM 250 MG CAPSULE PO SCH (09:00)
[2017-10-31] MEDS: ALLOPURINOL 100 MG TABLET PO SCH (13:02)
[2017-10-31] MEDS: METOPROLOL TARTRATE 25 MG TABLET PO SCH ×2 (13:02→21:33)
[2017-10-31] MEDS: LACTOBACILLUS RHAMNOSUS GG CAPSULE PO SCH (13:02)
[2017-10-31] MEDS: COLCHICINE 0.6 MG TABLET PO SCH (13:02)
[2017-10-31] MEDS: CHOLECALCIFEROL 1,000 UNIT TABLET PO SCH (13:02)
[2017-10-31] MEDS: DOCUSATE SODIUM 250 MG CAPSULE PO SCH (13:02)
[2017-10-31] MEDS: MULTIVITAMIN TABLET PO SCH (13:03)
[2017-10-31] MEDS: PSYLLIUM PACKET PO SCH (13:03)
[2017-10-31] MEDS: SENNA 8.6 MG TABLET PO SCH (13:03)
[2017-10-31] MEDS: POLYETHYLENE GLYCOL 3350 17 GM PACKET PO SCH (13:03)
[2017-10-31] MEDS ORDERED: ACETAMINOPHEN 1,000 MG/100 ML 100 ML IV PRN (15:07)
--- NOTE | 2017-10-31 15:17 | PROVIDER PROGRESS NOTE ---
Subjective - Prog Note Date Prog Note Date: 10/31/17 Prog Note Time: 15:15 - Subjective Pt reports feeling: No change Subjective: Azalea is not answering questions appropriately and is seen speaking in harsh tones to her who then becomes easily tearful. She denies chest pain, SOB, N/V or a new cough when asked, but complains about her back hurting. Current Medications - Current Medications Current Medications: Active Medications Acetaminophen (Tylenol) 650 mg PO Q4HR PRN PRN Reason: Pain or Fever > 38C (100.4F) Last Admin: 10/30/17 19:30 Dose: 650 mg Acetaminophen/Hydrocodone Bitart ([place] 5/325) 1 tab PO Q4HR PRN PRN Reason: PAIN Allopurinol (Zyloprim) 200 mg PO DAILY [facility] Last Admin: 10/31/17 13:02 Dose: Not Given Cholecalciferol (Vitamin D3) 1,000 unit PO DAILY [facility] Last Admin: 10/31/17 13:02 Dose: Not Given Clonidine HCl (Catapres) 0.1 mg PO BID [facility] Colchicine (Colcrys) 0.6 mg PO QOD [facility] Last Admin: 10/31/17 13:02 Dose: Not Given Cyclobenzaprine HCl (Flexeril) 10 mg PO TID PRN PRN Reason: Spasms Docusate Sodium (Colace 250mg Capsule) 250 - 500 mg PO DAILY [facility] Last Admin: 10/31/17 13:02 Dose: Not Given Haloperidol (Haldol Inj) 0.5 mg IVP Q1HR PRN PRN Reason: PAIN Last Admin: 10/31/17 14:27 Dose: 0.5 mg Acetaminophen (Ofirmev) 100 mls @ 400 mls/hr IV Q6HR PRN PRN Reason: PAIN Lactobacillus Rhamnosus (Culturelle) 1 cap PO DAILY [facility] Last Admin: 10/31/17 13:02 Dose: Not Given Metoprolol Tartrate (Lopressor) 25 mg PO BID [facility] Last Admin: 10/31/17 13:02 Dose: Not Given Morphine Sulfate (Morphine) 2 mg IVP Q2H PRN PRN Reason: PAIN Multivitamins (Theragran) 1 tab PO DAILY [facility] Last Admin: 10/31/17 13:03 Dose: Not Given Olanzapine (Zyprexa Odt) 5 mg TL BID [facility] Polyethylene Glycol (Miralax) 17 gm PO DAILY [facility] Last Admin: 10/31/17 13:03 Dose: Not Given Psyllium Hydrophilic Mucilloid (Metamucil) 1 packet PO DAILY [facility] Last Admin: 10/31/17 13:03 Dose: Not Given Senna (Senokot) 8.6 - 17.2 mg PO DAILY [facility] Last Admin: 10/31/17 13:03 Dose: Not Given Sodium Chloride (Normal Saline Flush 0.9%) 10 ml IVP PRN PRN PRN Reason: NEEDED PER PROVIDER ORDERS Last Admin: 10/31/17 07:05 Dose: 10 ml Sodium Chloride (Normal Saline Flush 0.9%) 10 ml IVP 0100,0900,1700 [facility] Last Admin: 10/31/17 08:25 Dose: 10 ml Lactobacillus Acidophilus [Probiotic Acidophilus] 1 tab PO DAILY 12/14/16 Allopurinol [Allopurinol] 200 mg PO DAILY 10/29/17 Cholecalciferol (Vitamin D3) [Vitajoy Daily D] 1,000 unit PO DAILY 10/29/17 Colchicine [Colchicine] 0.6 mg PO .EVERY OTHER DAY 10/29/17 Cyclobenzaprine HCl 10 mg PO TID PRN 10/29/17 Lisinopril [Lisinopril] 40 mg PO DAILY 10/29/17 Multivitamin [Theragran] 1 each PO DAILY 10/29/17 Objective - Vital Signs/Intake & Output Reviewed Vital Signs: Yes Vital Signs: Vital Signs x48h Pulse Resp BP Pulse Ox 10/31/17 07:53 102 H 19 121/106 H 96 Intake & Output: Intake & Output 10/28/17 10/29/17 10/30/17 10/31/17 23:59 23:59 23:59 23:59 Intake Total 958 588 0045.75 Output Total 201 Balance 309 281 7585.75 - Objective General Appearance: positive: Alert, Moderate distress, Anxious Eyes Bilateral: positive: Normal inspection Eyes: OU Conjunctivae pale, OU Scleral icterus ENT: positive: ENT inspection nml, Pharyngeal erythema, Dry mucous membranes Neck: positive: Thyroid nml, No JVD, Lymphadenopathy (R), Lymphadenopathy (L), Stiff neck Respiratory: positive: Chest non-tender, Wheezes, Rhonchi Cardiovascular: positive: Regular rate & rhythm, No gallop, Tachycardia, Systolic murmur, Decreased pulse(s) Peripheral Pulses: 1+ Radial (R), 1+ Radial (L) Abdomen: positive: Non-tender, No organomegaly, Nml bowel sounds, Other (rounded , soft) Back: positive: Nml inspection Skin: positive: No rash, Warm, Dry, Pallor, Other (right breast lesion) Extremities: positive: Non-tender, Full ROM, Pedal edema, Joint swelling Neurologic/Psychiatric: positive: Disoriented to place, Disoriented to time, Weakness, Sensory loss, Slurred/abnml speech, Depressed mood/affect, Other ( acute delerium, and chronic dementia.) Reflexes: Bicep (R): 1+, Bicep (L): 1+ - Lab Results Fish Bones: 10/30/17 17:25 10/30/17 17:25 Other Labs: Lab Results x24hrs 10/30/17 10/30/17 10/30/17 Range/Units 17:25 17:25 17:25 WBC (4.8-10.8) x10^3/uL RBC (4.20-5.40) 10^6/uL Hgb (12.0-16.0) g/dL Hct (37.0-47.0) % MCV (81.0-99.0) fL MCH (27.0-31.0) pg MCHC (32.0-36.0) g/dL RDW (12.0-15.0) % Plt Count (130-450) 10^3/uL MPV (7.9-10.8) fL Neut # (1.5-6.6) 10^3/uL Lymph # (1.5-3.5) 10^3/uL [place] # (0.0-1.0) 10^3/uL Eos # (0.0-0.7) 10^3/uL Baso # (0.0-0.1) 10^3/uL Absolute Nucleated RBC x10^3/uL Nucleated RBC % /100WBC Sodium (135-145) mmol/L Potassium (3.5-5.0) mmol/L Chloride (101-111) mmol/L Carbon Dioxide (21-32) mmol/L Anion Gap (6-13) BUN (6-20) mg/dL Creatinine (0.4-1.0) mg/dL Estimated GFR (MDRD) (>89) Glucose (70-100) mg/dL Uric Acid 6.1 (2.6-7.2) mg/dL Calcium (8.5-10.3) mg/dL Total Bilirubin (0.2-1.0) mg/dL AST (10-42) IU/L ALT (10-60) IU/L Alkaline Phosphatase (42-121) IU/L Troponin I < 0.04 (<0.49) ng/mL Total Protein (6.7-8.2) g/dL Albumin (3.2-5.5) g/dL Globulin (2.1-4.2) g/dL Albumin/Globulin Ratio (1.0-2.2) TSH 4.20 (0.34-5.60) uIU/mL 10/30/17 10/30/17 Range/Units 17:25 17:25 WBC 9.1 (4.8-10.8) x10^3/uL RBC 4.66 (4.20-5.40) 10^6/uL Hgb 12.5 (12.0-16.0) g/dL Hct 39.7 (37.0-47.0) % MCV 85.2 (81.0-99.0) fL MCH 26.8 L (27.0-31.0) pg MCHC 31.5 L (32.0-36.0) g/dL RDW 18.4 H (12.0-15.0) % Plt Count 373 (130-450) 10^3/uL MPV 8.0 (7.9-10.8) fL Neut # 7.6 H (1.5-6.6) 10^3/uL Lymph # 0.7 L (1.5-3.5) 10^3/uL [place] # 0.7 (0.0-1.0) 10^3/uL Eos # 0.1 (0.0-0.7) 10^3/uL Baso # 0.0 (0.0-0.1) 10^3/uL Absolute Nucleated RBC 0.00 x10^3/uL Nucleated RBC % 0.0 /100WBC Sodium 133 L (135-145) mmol/L Potassium 4.7 (3.5-5.0) mmol/L Chloride 102 (101-111) mmol/L Carbon Dioxide 18 L (21-32) mmol/L Anion Gap 13.0 (6-13) BUN 36 H (6-20) mg/dL Creatinine 1.4 H (0.4-1.0) mg/dL Estimated GFR (MDRD) 36 L (>89) Glucose 146 H (70-100) mg/dL Uric Acid (2.6-7.2) mg/dL Calcium 9.4 (8.5-10.3) mg/dL Total Bilirubin 1.2 H (0.2-1.0) mg/dL AST 137 H (10-42) IU/L ALT 50 (10-60) IU/L Alkaline Phosphatase 812 H (42-121) IU/L Troponin I (<0.49) ng/mL Total Protein 6.5 L (6.7-8.2) g/dL Albumin 2.8 L (3.2-5.5) g/dL Globulin 3.7 (2.1-4.2) g/dL Albumin/Globulin Ratio 0.8 L (1.0-2.2) TSH (0.34-5.60) uIU/mL - Diagnostic Imaging Diagnostic Imaging Results: positive: Final report reviewed ABX Reporting Has patient been on IV antibiotics over the past 48 hours?: No Assessment/Plan - Problem List (1) Tachycardia Impression: The patient continues to have elevated heart rates and per chart review; rates between 100-120. She did not come in with any thing for rate control. This could be exacerbated by her prolonged agitation. No telemetry is indicated in this setting. Plan: Metoprolol 25 BID was increased to 50mg BID and we will continue to monitor vital signs. (2) Breast mass Impression: The patient has an open ulcerated right breast mass with a possible dislocated rib. The patient has a history of a left breast mastectomy. The patient's is in agreement with no further treatment, but would like a "biopsy" of the tissue as he wants to know if it is cancer. Plan: Monitor and treat for pain and consider a general surgery consult to perform a biopsy. (3) Fall Impression: The patient's most recent fall was ~2 weeks ago, according to her . It was determined that she will need 24 hour care in a facility. A memory care facility would be the best. Plan: Continue fall precautions, and obtain a PT evaluation. Qualifiers: Encounter type: initial encounter Qualified Code(s): W19.XXXA - Unspecified fall, initial encounter (4) Congestive heart failure Impression: The patient has a known history of this, and confirmation upon chart review with [facility]. The patient was too agitated to allow an echocardiogram today , so this is on hold. We are using beta blockers and clonidine for now until results of echo are back. Lungs sounds indicate mild fluid overload. Plan: Monitor fluid balance using I/O and weights. (5) Hypertension Impression: The patient's blood pressure is only mildly improved, but the patient has been agitated that is worse than yesterday. Diastolic blood pressures have been the most concerning between 80-110. She was started on metoprolol 25mg BID and today Clonidine was added. Plan: Continue to monitor vital signs. Qualifiers: Hypertension type: essential hypertension Qualified Code(s): I10 - Essential (primary) hypertension (6) Multi-infarct dementia Impression: The patient was found to have several areas of PRIOR infarct as per imaging that was completed on admission. She continues to be combative, required a 1:1 sitter, restraints and now has Zyprexa scheduled. I spent at least 30 minutes [id number] with the patient and her , Jeremiah regarding the next step in her plan of care. Due to her debilitated state, her agreed that bringing her home is no longer a good option. Plan: Continue support, and discharge is pending on placement.
[2017-10-31] MEDS: MORPHINE 2 MG/ML SYRINGE IVP PRN (16:25)
[2017-10-31] MEDS: OLANZapine ODT 5 MG TABLET TL SCH (16:25)
[2017-10-31] MEDS: cloNIDine 0.1 MG TABLET PO SCH (16:25)
[2017-11-01] MEDS: SODIUM CHLORIDE FLUSH 0.9% 10 ML SYRINGE IVP SCH ×4 (03:33→23:57)
[2017-11-01 05:23] LABS: BASOPHILS # (AUTO) 0.1 10^3/uL (0.0-0.1); BASOPHILS % (AUTO) 0.9 %; EOSINOPHILS # (AUTO) 0.3 10^3/uL (0.0-0.7); EOSINOPHILS % (AUTO) 3.6 %; LYMPHOCYTES # (AUTO) 0.8 10^3/uL (1.5-3.5); LYMPHOCYTES % (AUTO) 11.7 %; MEAN CORPUSCULAR HGB CONC 31.3 g/dL (32.0-36.0); MEAN CORPUSCULAR VOLUME 86.4 fL (81.0-99.0); MEAN PLATELET VOLUME 8.6 fL (7.9-10.8); MONOCYTES # (AUTO) 0.7 10^3/uL (0.0-1.0); MONOCYTES % (AUTO) 10.5 %; NEUTROPHILS # (AUTO) 5.1 10^3/uL (1.5-6.6); NEUTROPHILS % (AUTO) 73.3 %; PLT - PLATELET COUNT 306 10^3/uL (130-450); RED BLOOD COUNT 4.05 10^6/uL (4.20-5.40); RED CELL DISTRIBUTION WIDTH 18.5 % (12.0-15.0)
[2017-11-01 05:38] LABS: ALBUMIN 2.3 g/dL (3.2-5.5); ALBUMIN/GLOBULIN RATIO 0.8 (1.0-2.2); BILIRUBIN,TOTAL 1.3 mg/dL (0.2-1.0); CALCIUM 9.1 mg/dL (8.5-10.3); CREATININE 1.5 mg/dL (0.4-1.0); TOTAL PROTEIN 5.3 g/dL (6.7-8.2)
[2017-11-01] MEDS: ALLOPURINOL 100 MG TABLET PO SCH (08:37)
[2017-11-01] MEDS: LACTOBACILLUS RHAMNOSUS GG CAPSULE PO SCH (08:37)
[2017-11-01] MEDS: METOPROLOL TARTRATE 25 MG TABLET PO SCH ×2 (08:37→22:02)
[2017-11-01] MEDS: MULTIVITAMIN TABLET PO SCH (08:39)
[2017-11-01] MEDS: CHOLECALCIFEROL 1,000 UNIT TABLET PO SCH (08:39)
[2017-11-01] MEDS: HYDROcod/ACETAM 5/325 MG TABLET PO PRN ×3 (08:40→22:04)
[2017-11-01] MEDS: cloNIDine 0.1 MG TABLET PO SCH ×2 (08:40→22:02)
[2017-11-01] MEDS: POLYETHYLENE GLYCOL 3350 17 GM PACKET PO SCH (08:41)
[2017-11-01] MEDS: SENNA 8.6 MG TABLET PO SCH (08:41)
[2017-11-01] MEDS: PSYLLIUM PACKET PO SCH (08:41)
[2017-11-01] MEDS: DOCUSATE SODIUM 250 MG CAPSULE PO SCH (08:41)
--- NOTE | 2017-11-01 14:20 | CONSULTATION NOTE ---
Palliative Care Consultation - Referral Referring Provider: Maile REDD Time of Visit: 03-31 Referral setting: Hospitalized patient Referral Reason: Breast Mass/Neurological findings/Goals of Care - Information Sources Records reviewed: RN notes reviewed, Previous records reviewed History/Review of Systems obtained from: Patient, Family ( Jeremiah present for visit) Exam limitations: Clinical condition (patient able to participate in exam and questions; fluctuating attention/accuracy;) - History of Present Illness Brief History of Present Illness: This is a giovanni 87-year-old woman who presents today with multiple comorbidities, including right breast mass with maceration presumed to be breast cancer, and progressive neurologic findings consistent with CVA. And follow-up with , reports a fall is what brought them finally to the hospital, she has had an acute decline over the last 5-6 weeks, with increasing falls, fluctuating cognitive status, decline in functional status, and increasing back pain. It has been very eventful and emotional few days, though both her recognizing the seriousness of her current illness, and that she is not going to be able to return home. Palliative care has been asked to consult for goals of care. Medical/Surgical History - Past Medical History Cardiovascular: reports: Hypertension Respiratory: reports: None Neuro: Other ( reports fluctuating cognitive status; does present with poor STM; some limitiations in problem solving; though is able to express fews) Neuro: reports: None Endocrine/Autoimmune: reports: None GI: HEENT: Musculoskeletal: reports: Gout (followed by Dr. 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 (Patient's spouse is actually in fairly good condition he is 90 years old, they are both from [place], and came over for him to do his degree in physics at [employer]. They were both very active in mountain years, and had maintained a fairly active life over the last several decades, though certainly if slow down the last couple years. He did not have any children, his brother just of 93 years old, they do have some good friends and neighbors, but no one to really help with his decision- making. They are both very fond of their cat.) Family History - Family History Family History: Mother: , Father: Medications/Allergies - Medications Active Medication List: Active Medications Acetaminophen (Tylenol) 650 mg PO Q4HR PRN PRN Reason: Pain or Fever > 38C (100.4F) Last Admin: 10/30/17 19:30 Dose: 650 mg Acetaminophen/Hydrocodone Bitart ([place] 5/325) 1 tab PO Q4HR PRN PRN Reason: PAIN Last Admin: 11/01/17 08:40 Dose: 1 tab Allopurinol (Zyloprim) 200 mg PO DAILY [facility] Last Admin: 11/01/17 08:37 Dose: 200 mg Cholecalciferol (Vitamin D3) 1,000 unit PO DAILY [facility] Last Admin: 11/01/17 08:39 Dose: 1,000 unit Clonidine HCl (Catapres) 0.1 mg PO BID [facility] Last Admin: 11/01/17 08:40 Dose: 0.1 mg Colchicine (Colcrys) 0.6 mg PO QOD [facility] Last Admin: 10/31/17 13:02 Dose: Not Given Cyclobenzaprine HCl (Flexeril) 10 mg PO TID PRN PRN Reason: Spasms Docusate Sodium (Colace 250mg Capsule) 250 - 500 mg PO DAILY [facility] Last Admin: 11/01/17 08:41 Dose: Not Given Haloperidol (Haldol Inj) 0.5 mg IVP Q1HR PRN PRN Reason: PAIN Last Admin: 10/31/17 14:27 Dose: 0.5 mg Lactobacillus Rhamnosus (Culturelle) 1 cap PO DAILY [facility] Last Admin: 11/01/17 08:37 Dose: 1 cap Metoprolol Tartrate (Lopressor) 25 mg PO BID [facility] Last Admin: 11/01/17 08:37 Dose: 25 mg Morphine Sulfate (Morphine) 2 mg IVP Q2H PRN PRN Reason: PAIN Last Admin: 10/31/17 16:25 Dose: 2 mg Multivitamins (Theragran) 1 tab PO DAILY [facility] Last Admin: 11/01/17 08:39 Dose: 1 tab Olanzapine (Zyprexa Odt) 5 mg TL 1600 [facility] Last Admin: 10/31/17 16:25 Dose: 5 mg Polyethylene Glycol (Miralax) 17 gm PO DAILY [facility] Last Admin: 11/01/17 08:41 Dose: 17 gm Psyllium Hydrophilic Mucilloid (Metamucil) 1 packet PO DAILY [facility] Last Admin: 11/01/17 08:41 Dose: Not Given Senna (Senokot) 8.6 - 17.2 mg PO DAILY [facility] Last Admin: 11/01/17 08:41 Dose: Not Given Sodium Chloride (Normal Saline Flush 0.9%) 10 ml IVP PRN PRN PRN Reason: NEEDED PER PROVIDER ORDERS Last Admin: 10/31/17 07:05 Dose: 10 ml Sodium Chloride (Normal Saline Flush 0.9%) 10 ml IVP 0100,0900,1700 [facility] Last Admin: 11/01/17 08:41 Dose: 10 ml Lactobacillus Acidophilus [Probiotic Acidophilus] 1 tab PO DAILY 12/14/16 Allopurinol [Allopurinol] 200 mg PO DAILY 10/29/17 Cholecalciferol (Vitamin D3) [Vitajoy Daily D] 1,000 unit PO DAILY 10/29/17 Colchicine [Colchicine] 0.6 mg PO .EVERY OTHER DAY 10/29/17 Cyclobenzaprine HCl 10 mg PO TID PRN 10/29/17 Lisinopril [Lisinopril] 40 mg PO DAILY 10/29/17 Multivitamin [Theragran] 1 each PO DAILY 10/29/17 - Allergies Allergies/Adverse Reactions: Allergies Allergy/AdvReac Type Severity Reaction Status Date / Time No Known Drug Allergies Allergy Verified 12/14/16 09:24 Review of Systems - Constitutional Constitutional: reports: Fatigue, Weakness (acute decline over the last 5-6 weeks more acutely; has had less functional status over the last couple of years ; 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 exercise tolerance - Respiratory Respiratory: denies: Cough - Musculoskeletal Musculoskeletal: reports: Back pain, Limited range of motion, Muscle weakness - Integumentary Integumentary: reports: Dryness, Other (erosion of breast mass left) - Neurological Neurological: reports: General weakness, Focal weakness (new left sided weakness ; tilting to right;), Memory problems (fluctuating), Slurred speech (left facial droop with difficulty clear speech) - Psychiatric Psychiatric: reports: Depression - All Other Systems All Other Systems: reports: Reviewed and negative Physical Exam - Vital Signs Vital Signs: Vital Signs x48h Temp Pulse Resp BP BP BP Pulse Ox 11/01/17 13:16 36.5 C 76 20 136/56 H 94 11/01/17 08:37 138/75 H 11/01/17 08:00 36.7 C 90 14 138/75 H - Physical Exam General Appearance: positive: Mild distress Eyes Bilateral: positive: Normal inspection ENT: positive: Other (some left mouth droop) Neck: positive: No JVD, Trachea midline Cardiovascular: positive: Regular rate & rhythm Respiratory: positive: Diminished in bases. negative: Wheezes, Rales, Rhonchi Abdomen: positive: Soft Skin: positive: Pallor, Dryness, Other (large hard mass about size of orange; macerated area mid center with quarter size; black/dry right side no bleeding currently no symptoms of pain on exam; displaces 50% of breast tissue;) Extremities: positive: No pedal edema Neurologic/Psychiatric: positive: Disoriented to time, Facial droop, Slurred/ abnml speech, Depressed mood/affect Palliative Care - POLST Patient has POLST: Yes POLST Status: DNR, Selective Treatment (completed at visit) Pain: No pain Tiredness/Fatigue: Severe (7-10) (very poor activity tolerance) Drowsiness/Sedation: None Nausea: None Depression: Moderate (4-6) Anxiety: Mild (1-3) Feelings of wellbeing/Perceived Quality of Life: Poor, Worsening Performance Status: Patient currently maximum 2 person assist for transfers and pivots. She is unable to participate in bed mobility, she is having increased difficulty with speech, and positioning. She fatigues quite easily with conversation or activity, by the end of our visit and she is up in the chair she was quite fatigued - Palliative Care Discussion: Patient though her speech was slurred, was actually fairly clear through our conversation, we did have a long conversation regarding goals of care, her was somewhat focused on the biopsy. I did explain the patient does present most likely 99% with breast cancer, concern certainly is managing it in a palliative way, as well as looking at safety and a safe situation for her to be discharged to. does recognize he would been unable to provide physical care, the complications of overseeing 24 hour care are somewhat overwhelming, he is starting to explore other settings. We did spend time counseling as far as what the settings provide, and the limitations regarding this. In the context of whether at currently in their goals. They do both want to focus on keeping her comfortable, she does not want to be resuscitated or prolong her suffering, and if it is her time she is consistent in her messaging of allowing natural . Her is quite tearful through this, but also recognizes patient's current quality of life is much juxtaposed From her values. We did discuss hospice, the layer of support, particularly if no further treatment or patient continues to decline. Today they are picking selected treatments, which means not focusing on burdensome measures, no intubation, but currently would accept exploring what might be available. ANGELICA ST was completed, patient was unable to sign, but did participate in the conversation and her would be her DPOAE. Code status was change to DNAR. Results - Lab Results Lab results reviewed: Yes Fish Bones: 11/01/17 04:52 11/01/17 04:52 Lab and Imaging Results: Lab Results x24hrs 11/01/17 11/01/17 11/01/17 Range/Units 04:52 04:52 04:52 WBC 7.0 (4.8-10.8) x10^3/uL RBC 4.05 L (4.20-5.40) 10^6/uL Hgb 11.0 L (12.0-16.0) g/dL Hct 35.0 L (37.0-47.0) % MCV 86.4 (81.0-99.0) fL MCH 27.0 (27.0-31.0) pg MCHC 31.3 L (32.0-36.0) g/dL RDW 18.5 H (12.0-15.0) % Plt Count 306 (130-450) 10^3/uL MPV 8.6 (7.9-10.8) fL Neut # 5.1 (1.5-6.6) 10^3/uL Lymph # 0.8 L (1.5-3.5) 10^3/uL [place] # 0.7 (0.0-1.0) 10^3/uL Eos # 0.3 (0.0-0.7) 10^3/uL Baso # 0.1 (0.0-0.1) 10^3/uL Absolute Nucleated RBC 0.00 x10^3/uL Nucleated RBC % 0.0 /100WBC Sodium 136 (135-145) mmol/L Potassium 4.0 (3.5-5.0) mmol/L Chloride 105 (101-111) mmol/L Carbon Dioxide 20 L (21-32) mmol/L Anion Gap 11.0 (6-13) BUN 33 H (6-20) mg/dL Creatinine 1.5 H (0.4-1.0) mg/dL Estimated GFR (MDRD) 33 L (>89) Glucose 91 (70-100) mg/dL Calcium 9.1 (8.5-10.3) mg/dL Total Bilirubin 1.3 H (0.2-1.0) mg/dL AST 172 H (10-42) IU/L ALT 57 (10-60) IU/L Alkaline Phosphatase 606 H (42-121) IU/L B-Natriuretic Peptide 236 H (5-100) pg/mL Total Protein 5.3 L (6.7-8.2) g/dL Albumin 2.3 L (3.2-5.5) g/dL Globulin 3.0 (2.1-4.2) g/dL Albumin/Globulin Ratio 0.8 L (1.0-2.2) Impression and Recommendations - Palliative Care Impression: This is a giovanni 87-year-old woman who presents with most likely metastatic breast cancer, now with neurologic findings consistent with stroke, both functional cognitive decline. Both patient and her do recognize the seriousness of her illness, would like to understand options that might improve her added to her quality of life, and are actively looking at placement at this point in time. Palliative care to provide support regarding goals of care Recommendations/Counseling Done: 1. Chest mass. Has been is wanting to see if there are any palliative options, this would include needing a breast biopsy, they were unable to tell me if she had been previously on any kind of hormonal treatment. Given the natural course of the size and beginning maceration, would be prudent to explore interventions that may address this in a palliative way. The patient continues to deteriorate clinically, this may not be as necessary, awaiting surgical consult. 2. CVA. Awaiting results of brain MRI, patient does present with neurologic findings, has had both functional and cognitive decline, is not able to participate in any self-care behaviors and this is a significant loss for both her and her . He is exploring placement options, counseling given regarding his questions and concerns, encouraged to visit the different options and perform his own opinions. 3. Advanced care planning. ANGELICA ST was completed with transition to DNA R, provided hard choices for loving people, patient able to express her values and wishes which is not to prolong suffering, and allow natural . Will continue to follow for further support needed on discharge to chose facility. Time Spent: 60 minutes with greater than 50% of this done in counseling and anticipatory guidance completion of advance directives and interpretation into the ANGELICA ST
[2017-11-01] MEDS: OLANZapine ODT 5 MG TABLET TL SCH (16:03)
--- NOTE | 2017-11-01 19:26 | PROVIDER PROGRESS NOTE ---
Subjective - Prog Note Date Prog Note Date: 11/01/17 Prog Note Time: 12:00 - Subjective Pt reports feeling: Improved Subjective: Azalea seems somewhat less agitated today, but is still requiring restraints at times. She offers no complaints, except being hungry. Current Medications - Current Medications Current Medications: Active Medications Acetaminophen (Tylenol) 650 mg PO Q4HR PRN PRN Reason: Pain or Fever > 38C (100.4F) Last Admin: 10/30/17 19:30 Dose: 650 mg Acetaminophen/Hydrocodone Bitart ([place] 5/325) 1 tab PO Q4HR PRN PRN Reason: PAIN Last Admin: 11/01/17 14:22 Dose: 1 tab Allopurinol (Zyloprim) 200 mg PO DAILY [facility] Last Admin: 11/01/17 08:37 Dose: 200 mg Cholecalciferol (Vitamin D3) 1,000 unit PO DAILY [facility] Last Admin: 11/01/17 08:39 Dose: 1,000 unit Clonidine HCl (Catapres) 0.1 mg PO BID [facility] Last Admin: 11/01/17 08:40 Dose: 0.1 mg Colchicine (Colcrys) 0.6 mg PO QOD [facility] Last Admin: 10/31/17 13:02 Dose: Not Given Cyclobenzaprine HCl (Flexeril) 10 mg PO TID PRN PRN Reason: Spasms Docusate Sodium (Colace 250mg Capsule) 250 - 500 mg PO DAILY [facility] Last Admin: 11/01/17 08:41 Dose: Not Given Haloperidol (Haldol Inj) 0.5 mg IVP Q1HR PRN PRN Reason: PAIN Last Admin: 10/31/17 14:27 Dose: 0.5 mg Lactobacillus Rhamnosus (Culturelle) 1 cap PO DAILY [facility] Last Admin: 11/01/17 08:37 Dose: 1 cap Metoprolol Tartrate (Lopressor) 25 mg PO BID [facility] Last Admin: 11/01/17 08:37 Dose: 25 mg Morphine Sulfate (Morphine) 2 mg IVP Q2H PRN PRN Reason: PAIN Last Admin: 10/31/17 16:25 Dose: 2 mg Multivitamins (Theragran) 1 tab PO DAILY [facility] Last Admin: 11/01/17 08:39 Dose: 1 tab Olanzapine (Zyprexa Odt) 5 mg TL 1600 [facility] Last Admin: 11/01/17 16:03 Dose: 5 mg Polyethylene Glycol (Miralax) 17 gm PO DAILY [facility] Last Admin: 11/01/17 08:41 Dose: 17 gm Psyllium Hydrophilic Mucilloid (Metamucil) 1 packet PO DAILY [facility] Last Admin: 11/01/17 08:41 Dose: Not Given Senna (Senokot) 8.6 - 17.2 mg PO DAILY [facility] Last Admin: 11/01/17 08:41 Dose: Not Given Sodium Chloride (Normal Saline Flush 0.9%) 10 ml IVP PRN PRN PRN Reason: NEEDED PER PROVIDER ORDERS Last Admin: 10/31/17 07:05 Dose: 10 ml Sodium Chloride (Normal Saline Flush 0.9%) 10 ml IVP 0100,0900,1700 [facility] Last Admin: 11/01/17 16:03 Dose: 10 ml Lactobacillus Acidophilus [Probiotic Acidophilus] 1 tab PO DAILY 12/14/16 Allopurinol [Allopurinol] 200 mg PO DAILY 10/29/17 Cholecalciferol (Vitamin D3) [Vitajoy Daily D] 1,000 unit PO DAILY 10/29/17 Colchicine [Colchicine] 0.6 mg PO .EVERY OTHER DAY 10/29/17 Cyclobenzaprine HCl 10 mg PO TID PRN 10/29/17 Lisinopril [Lisinopril] 40 mg PO DAILY 10/29/17 Multivitamin [Theragran] 1 each PO DAILY 10/29/17 Objective - Vital Signs/Intake & Output Reviewed Vital Signs: Yes Vital Signs: Vital Signs x48h Temp Pulse Resp BP BP Pulse Ox 11/01/17 15:42 36.5 C 80 20 141/72 H 96 11/01/17 13:16 36.5 C 76 20 136/56 H 94 Intake & Output: Intake & Output 10/29/17 10/30/17 10/31/17 11/01/17 23:59 23:59 23:59 23:59 Intake Total 880 361 4774.75 960 Output Total 201 Balance 159 774 4479.75 960 - Objective General Appearance: positive: Alert, Moderate distress, Anxious Eyes Bilateral: positive: Normal inspection Eyes: OU Conjunctivae pale, OU Scleral icterus ENT: positive: ENT inspection nml, Pharynx nml, Pharyngeal erythema, Dry mucous membranes Neck: positive: Nml inspection, Thyroid nml, No JVD, Stiff neck Respiratory: positive: Chest non-tender, No respiratory distress, Rhonchi Cardiovascular: positive: Regular rate & rhythm, No gallop, Systolic murmur, Decreased pulse(s) Peripheral Pulses: 1+ Radial (R), 1+ Radial (L) Abdomen: positive: Non-tender, No organomegaly, Nml bowel sounds Back: positive: Nml inspection Skin: positive: No rash, Warm, Dry, Pallor Extremities: positive: Non-tender, Pedal edema, Joint swelling Neurologic/Psychiatric: positive: Disoriented to place, Disoriented to time, Weakness, Sensory loss, Slurred/abnml speech, Depressed mood/affect, Other (she can recognize her .) Reflexes: Bicep (R): 2+, Bicep (L): 2+ - Lab Results Fish Bones: 11/01/17 04:52 11/01/17 04:52 Other Labs: Lab Results x24hrs 11/01/17 11/01/17 11/01/17 Range/Units 04:52 04:52 04:52 WBC 7.0 (4.8-10.8) x10^3/uL RBC 4.05 L (4.20-5.40) 10^6/uL Hgb 11.0 L (12.0-16.0) g/dL Hct 35.0 L (37.0-47.0) % MCV 86.4 (81.0-99.0) fL MCH 27.0 (27.0-31.0) pg MCHC 31.3 L (32.0-36.0) g/dL RDW 18.5 H (12.0-15.0) % Plt Count 306 (130-450) 10^3/uL MPV 8.6 (7.9-10.8) fL Neut # 5.1 (1.5-6.6) 10^3/uL Lymph # 0.8 L (1.5-3.5) 10^3/uL Beadle # 0.7 (0.0-1.0) 10^3/uL Eos # 0.3 (0.0-0.7) 10^3/uL Baso # 0.1 (0.0-0.1) 10^3/uL Absolute Nucleated RBC 0.00 x10^3/uL Nucleated RBC % 0.0 /100WBC Sodium 136 (135-145) mmol/L Potassium 4.0 (3.5-5.0) mmol/L Chloride 105 (101-111) mmol/L Carbon Dioxide 20 L (21-32) mmol/L Anion Gap 11.0 (6-13) BUN 33 H (6-20) mg/dL Creatinine 1.5 H (0.4-1.0) mg/dL Estimated GFR (MDRD) 33 L (>89) Glucose 91 (70-100) mg/dL Calcium 9.1 (8.5-10.3) mg/dL Total Bilirubin 1.3 H (0.2-1.0) mg/dL AST 172 H (10-42) IU/L ALT 57 (10-60) IU/L Alkaline Phosphatase 606 H (42-121) IU/L B-Natriuretic Peptide 236 H (5-100) pg/mL Total Protein 5.3 L (6.7-8.2) g/dL Albumin 2.3 L (3.2-5.5) g/dL Globulin 3.0 (2.1-4.2) g/dL Albumin/Globulin Ratio 0.8 L (1.0-2.2) - Diagnostic Imaging Diagnostic Imaging Results: positive: Final report reviewed ABX Reporting Has patient been on IV antibiotics over the past 48 hours?: No Assessment/Plan - Problem List (1) Tachycardia Impression: The patient continues to have elevated heart rates and per chart review; rates between 70-100. No telemetry is indicated in this setting. Plan: Metoprolol 25 BID was increased to 50mg BID and we will continue to monitor vital signs. (2) Breast mass Impression: The patient has an open ulcerated right breast mass with a possible dislocated rib. The patient has a history of a left breast mastectomy. The patient's is in agreement with no further treatment, but would like a "biopsy" of the tissue as he wants to know if it is cancer. Plan: Monitor and treat for pain and consider a general surgery consult to perform a biopsy. (3) Fall Impression: The patient's most recent fall was ~2 weeks ago, according to her . It was determined that she will need 24 hour care in a facility. Plan: Continue fall precautions. Qualifiers: Encounter type: initial encounter Qualified Code(s): W19.XXXA - Unspecified fall, initial encounter (4) Congestive heart failure Impression: The patient has a known history of this, and confirmation upon chart review with [facility]. The patient was too agitated to allow an echocardiogram on this admit, so this is on hold. We are using beta blockers and clonidine for now until results of echo are back. Lungs sounds indicate mild fluid overload. Plan: Monitor fluid balance using I/O and weights. (5) Hypertension Impression: The patient's blood pressure is only mildly improved, but the patient has been agitated that is worse than yesterday. Diastolic blood pressures have been the most concerning between 80-110. She was started on metoprolol 50mg BID and Clonidine was added. Plan: Continue to monitor vital signs. Qualifiers: Hypertension type: essential hypertension Qualified Code(s): I10 - Essential (primary) hypertension (6) Multi-infarct dementia Impression: The patient was found to have several areas of PRIOR infarct as per imaging that was completed on admission. She continues to be combative, restraints and now has Zyprexa scheduled. I spent at least 30 minutes [id number] with the patient and her , Jeremiah regarding the next step in her plan of care. Due to her debilitated state, her agreed that bringing her home is no longer a good option. Plan: Continue support, and discharge is pending on placement.
[2017-11-02 06:08] LABS: BASOPHILS # (AUTO) 0.1 10^3/uL (0.0-0.1); BASOPHILS % (AUTO) 1.1 %; EOSINOPHILS # (AUTO) 0.2 10^3/uL (0.0-0.7); EOSINOPHILS % (AUTO) 2.6 %; HGB - HEMOGLOBIN 10.9 g/dL (12.0-16.0); LYMPHOCYTES # (AUTO) 1.2 10^3/uL (1.5-3.5); LYMPHOCYTES % (AUTO) 16.1 %; MEAN CORPUSCULAR HEMOGLOBIN 27.3 pg (27.0-31.0); MEAN CORPUSCULAR HGB CONC 31.9 g/dL (32.0-36.0); MEAN CORPUSCULAR VOLUME 85.6 fL (81.0-99.0); MEAN PLATELET VOLUME 8.2 fL (7.9-10.8); MONOCYTES # (AUTO) 0.7 10^3/uL (0.0-1.0); MONOCYTES % (AUTO) 9.8 %; NEUTROPHILS # (AUTO) 5.4 10^3/uL (1.5-6.6); NEUTROPHILS % (AUTO) 70.4 %; PLT - PLATELET COUNT 311 10^3/uL (130-450); RED BLOOD COUNT 3.99 10^6/uL (4.20-5.40); RED CELL DISTRIBUTION WIDTH 18.1 % (12.0-15.0); WHITE BLOOD COUNT 7.6 x10^3/uL (4.8-10.8)
[2017-11-02 06:25] LABS: ALBUMIN 2.2 g/dL (3.2-5.5); ALBUMIN/GLOBULIN RATIO 0.7 (1.0-2.2); BILIRUBIN,TOTAL 1.1 mg/dL (0.2-1.0); CALCIUM 9.4 mg/dL (8.5-10.3); CREATININE 1.4 mg/dL (0.4-1.0); TOTAL PROTEIN 5.4 g/dL (6.7-8.2)
[2017-11-02] MEDS: cloNIDine 0.1 MG TABLET PO SCH ×2 (09:13→20:27)
[2017-11-02] MEDS: COLCHICINE 0.6 MG TABLET PO SCH (09:13)
[2017-11-02] MEDS: METOPROLOL TARTRATE 25 MG TABLET PO SCH ×2 (09:13→20:26)
[2017-11-02] MEDS: CHOLECALCIFEROL 1,000 UNIT TABLET PO SCH (09:17)
[2017-11-02] MEDS: MULTIVITAMIN TABLET PO SCH (09:17)
[2017-11-02] MEDS: DOCUSATE SODIUM 250 MG CAPSULE PO SCH (09:17)
[2017-11-02] MEDS: ALLOPURINOL 100 MG TABLET PO SCH (09:17)
[2017-11-02] MEDS: SODIUM CHLORIDE FLUSH 0.9% 10 ML SYRINGE IVP SCH ×2 (09:18→17:03)
[2017-11-02] MEDS: SENNA 8.6 MG TABLET PO SCH (09:18)
[2017-11-02] MEDS: PSYLLIUM PACKET PO SCH (09:18)
[2017-11-02] MEDS: POLYETHYLENE GLYCOL 3350 17 GM PACKET PO SCH (09:19)
[2017-11-02] MEDS: LACTOBACILLUS RHAMNOSUS GG CAPSULE PO SCH (09:19)
--- NOTE | 2017-11-02 16:40 | PROVIDER PROGRESS NOTE ---
Subjective - Prog Note Date Prog Note Date: 11/02/17 - Subjective Pt reports feeling: No change Subjective: [facility] could not have a bed for pt until next week. Social work is looking for an alternative replacement plan. pt's pursues to have biopsy for pt. pt also state if she only has lift for one or two months then she prefer not to do biopsy and any intervention, but if not sure how she could have, pt hope she has a biopsy. I call Dr. Mir Zee for surgery consulting. Dr. Zee concern if hospital get reimbursements for this procedure. I call case management social worker, all were off the work. I will call case management social worker tomorrow or we have a meeting tomorrow to discuss the case. Then I can answer 's concern. Current Medications - Current Medications Current Medications: Active Medications Acetaminophen (Tylenol) 650 mg PO Q4HR PRN PRN Reason: Pain or Fever > 38C (100.4F) Last Admin: 10/30/17 19:30 Dose: 650 mg Acetaminophen/Hydrocodone Bitart ([place] 5/325) 1 tab PO Q4HR PRN PRN Reason: PAIN Last Admin: 11/01/17 22:04 Dose: 1 tab Allopurinol (Zyloprim) 200 mg PO DAILY [facility] Last Admin: 11/02/17 09:17 Dose: 200 mg Cholecalciferol (Vitamin D3) 1,000 unit PO DAILY [facility] Last Admin: 11/02/17 09:17 Dose: 1,000 unit Clonidine HCl (Catapres) 0.1 mg PO BID [facility] Last Admin: 11/02/17 09:13 Dose: 0.1 mg Colchicine (Colcrys) 0.6 mg PO QOD [facility] Last Admin: 11/02/17 09:13 Dose: 0.6 mg Cyclobenzaprine HCl (Flexeril) 10 mg PO TID PRN PRN Reason: Spasms Docusate Sodium (Colace 250mg Capsule) 250 - 500 mg PO DAILY [facility] Last Admin: 11/02/17 09:17 Dose: 500 mg Haloperidol (Haldol Inj) 0.5 mg IVP Q1HR PRN PRN Reason: PAIN Last Admin: 10/31/17 14:27 Dose: 0.5 mg Lactobacillus Rhamnosus (Culturelle) 1 cap PO DAILY [facility] Last Admin: 11/02/17 09:19 Dose: Not Given Metoprolol Tartrate (Lopressor) 25 mg PO BID [facility] Last Admin: 11/02/17 09:13 Dose: 25 mg Morphine Sulfate (Morphine) 2 mg IVP Q2H PRN PRN Reason: PAIN Last Admin: 10/31/17 16:25 Dose: 2 mg Multivitamins (Theragran) 1 tab PO DAILY [facility] Last Admin: 11/02/17 09:17 Dose: 1 tab Olanzapine (Zyprexa Odt) 5 mg TL 1600 [facility] Last Admin: 11/01/17 16:03 Dose: 5 mg Polyethylene Glycol (Miralax) 17 gm PO DAILY [facility] Last Admin: 11/02/17 09:19 Dose: Not Given Psyllium Hydrophilic Mucilloid (Metamucil) 1 packet PO DAILY [facility] Last Admin: 11/02/17 09:18 Dose: Not Given Senna (Senokot) 8.6 - 17.2 mg PO DAILY [facility] Last Admin: 11/02/17 09:18 Dose: Not Given Sodium Chloride (Normal Saline Flush 0.9%) 10 ml IVP PRN PRN PRN Reason: NEEDED PER PROVIDER ORDERS Last Admin: 10/31/17 07:05 Dose: 10 ml Sodium Chloride (Normal Saline Flush 0.9%) 10 ml IVP 0100,0900,1700 [facility] Last Admin: 11/02/17 09:18 Dose: 10 ml Lactobacillus Acidophilus [Probiotic Acidophilus] 1 tab PO DAILY 12/14/16 Allopurinol [Allopurinol] 200 mg PO DAILY 10/29/17 Cholecalciferol (Vitamin D3) [Vitajoy Daily D] 1,000 unit PO DAILY 10/29/17 Colchicine [Colchicine] 0.6 mg PO .EVERY OTHER DAY 10/29/17 Cyclobenzaprine HCl 10 mg PO TID PRN 10/29/17 Lisinopril [Lisinopril] 40 mg PO DAILY 10/29/17 Multivitamin [Theragran] 1 each PO DAILY 10/29/17 Objective - Vital Signs/Intake & Output Reviewed Vital Signs: Yes Vital Signs: Vital Signs x48h Temp Pulse Resp BP BP Pulse Ox 11/02/17 16:00 36.4 C L 78 20 154/69 H 95 11/02/17 09:13 147/58 H Intake & Output: Intake & Output 0510/31/17 11/01/17 11/02/17 23:59 23:59 23:59 23:59 Intake Total 980 1768.75 960 400 Output Total 201 150 Balance 779 1768.75 810 400 - Objective General Appearance: positive: No acute distress, Alert. negative: Lethargic Eyes Bilateral: positive: Normal inspection, PERRL. negative: No lid inflammation, Conjunctivae nml ENT: positive: ENT inspection nml, Pharynx nml, No signs of dehydration. negative: Purulent nasal drainage, Pharyngeal erythema, Oral lesions Neck: positive: Nml inspection, Thyroid nml, No JVD, Trachea midline. negative : Thyromegaly, Lymphadenopathy (R), Lymphadenopathy (L), Stiff neck, Carotid bruit, Swelling/bruising, Tracheal deviation Respiratory: positive: Chest non-tender, No respiratory distress, Breath sounds nml. negative: Wheezes, Rales, Rhonchi Cardiovascular: positive: Regular rate & rhythm, No murmur, No gallop. negative : Irregularly irregular, Extrasystoles, Tachycardia, Bradycardia, Systolic murmur, Diastolic murmur Peripheral Pulses: 2+ Radial (R), 2+ Radial (L), 2+ Dorsalis pedis (R), 2+ Dorsalis pedis (L) Abdomen: positive: Non-tender, No organomegaly, Nml bowel sounds. negative: Tenderness, Guarding, Rebound Back: positive: Nml inspection. negative: CVA tenderness (R), CVA tenderness (L ) Skin: positive: Color nml, No rash, Warm, Dry. negative: Cyanosis, Diaphoresis , Pallor Extremities: positive: Non-tender, Full ROM, Nml appearance. negative: Calf tenderness, Joint swelling, Favian's sign/cords Neurologic/Psychiatric: positive: Sensation nml, Weakness. negative: Sensory loss, Facial droop, Slurred/abnml speech, Depressed mood/affect - Lab Results Fish Bones: 11/02/17 05:54 11/02/17 05:54 Other Labs: Lab Results x24hrs 11/02/17 11/02/17 11/02/17 Range/Units 05:54 05:54 05:54 WBC 7.6 (4.8-10.8) x10^3/uL RBC 3.99 L (4.20-5.40) 10^6/uL Hgb 10.9 L (12.0-16.0) g/dL Hct 34.2 L (37.0-47.0) % MCV 85.6 (81.0-99.0) fL MCH 27.3 (27.0-31.0) pg MCHC 31.9 L (32.0-36.0) g/dL RDW 18.1 H (12.0-15.0) % Plt Count 311 (130-450) 10^3/uL MPV 8.2 (7.9-10.8) fL Neut # 5.4 (1.5-6.6) 10^3/uL Lymph # 1.2 L (1.5-3.5) 10^3/uL Tate # 0.7 (0.0-1.0) 10^3/uL Eos # 0.2 (0.0-0.7) 10^3/uL Baso # 0.1 (0.0-0.1) 10^3/uL Absolute Nucleated RBC 0.00 x10^3/uL Nucleated RBC % 0.0 /100WBC Sodium 136 (135-145) mmol/L Potassium 4.2 (3.5-5.0) mmol/L Chloride 106 (101-111) mmol/L Carbon Dioxide 21 (21-32) mmol/L Anion Gap 9.0 (6-13) BUN 32 H (6-20) mg/dL Creatinine 1.4 H (0.4-1.0) mg/dL Estimated GFR (MDRD) 36 L (>89) Glucose 90 (70-100) mg/dL Calcium 9.4 (8.5-10.3) mg/dL Total Bilirubin 1.1 H (0.2-1.0) mg/dL AST 133 H (10-42) IU/L ALT 50 (10-60) IU/L Alkaline Phosphatase 620 H (42-121) IU/L B-Natriuretic Peptide 172 H (5-100) pg/mL Total Protein 5.4 L (6.7-8.2) g/dL Albumin 2.2 L (3.2-5.5) g/dL Globulin 3.2 (2.1-4.2) g/dL Albumin/Globulin Ratio 0.7 L (1.0-2.2) ABX Reporting Has patient been on IV antibiotics over the past 48 hours?: No Assessment/Plan - Problem List (1) Altered mental status Impression: pt's MRI and CT of head was unremarkable it seems pt is on her baseline now, no acute delirium. neuro check continue support (2) Tachycardia Impression: resolved, stable, now continue tele and vital monitor continue Metoprolol The patient continues to have elevated heart rates and per chart review; rates between 70-100. No telemetry is indicated in this setting. Plan: Metoprolol 25 BID was increased to 50mg BID and we will continue to monitor vital signs. (3) Breast mass Impression: pt and her ask to have biopsy call Dr. Zee and NPO after midnight The patient has an open ulcerated right breast mass with a possible dislocated rib. The patient has a history of a left breast mastectomy. The patient's is in agreement with no further treatment, but would like a "biopsy" of the tissue as he wants to know if it is cancer. Plan: Monitor and treat for pain and consider a general surgery consult to perform a biopsy. (4) Fall Impression: continue fall precaution continue support The patient's most recent fall was ~2 weeks ago, according to her . It was determined that she will need 24 hour care in a facility. Plan: Continue fall precautions. (5) Congestive heart failure Impression: continue fluid balance with I/O, and weight continue support The patient has a known history of this, and confirmation upon chart review with [facility]. The patient was too agitated to allow an echocardiogram on this admit, so this is on hold. We are using beta blockers and clonidine for now until results of echo are back. Lungs sounds indicate mild fluid overload. Plan: Monitor fluid balance using I/O and weights. (6) Hypertension Impression: stable, continue vital monitor The patient's blood pressure is only mildly improved, but the patient has been agitated that is worse than yesterday. Diastolic blood pressures have been the most concerning between 80-110. She was started on metoprolol 50mg BID and Clonidine was added. Plan: Continue to monitor vital signs. (7) Multi-infarct dementia Impression: stable, continue support. The patient was found to have several areas of PRIOR infarct as per imaging that was completed on admission. She continues to be combative, restraints and now has Zyprexa scheduled. I spent at least 30 minutes [id number] with the patient and her , Jeremiah regarding the next step in her plan of care. Due to her debilitated state, her agreed that bringing her home is no longer a good option. Plan: Continue support, and discharge is pending on placement. (8) elevated liver enzyme it seems pt has metastatic breast mass, possible cancer spread US of abdomen, following up continue support Qualifiers: Altered mental status type: unspecified Qualified Code(s): R41.82 - Altered mental status, unspecified
[2017-11-02] MEDS: OLANZapine ODT 5 MG TABLET TL SCH (17:02)
[2017-11-02] MEDS ORDERED: ZINC OXIDE 20% OINT 28.35 GM TUBE TOP PRN (19:12)
[2017-11-02] MEDS: HYDROcod/ACETAM 5/325 MG TABLET PO PRN (23:07)
[2017-11-03] MEDS: SODIUM CHLORIDE FLUSH 0.9% 10 ML SYRINGE IVP SCH ×3 (01:32→19:23)
[2017-11-03 05:17] LABS: BASOPHILS # (AUTO) 0.1 10^3/uL (0.0-0.1); EOSINOPHILS # (AUTO) 0.1 10^3/uL (0.0-0.7); EOSINOPHILS % (AUTO) 1.7 %; HGB - HEMOGLOBIN 10.4 g/dL (12.0-16.0); LYMPHOCYTES # (AUTO) 1.1 10^3/uL (1.5-3.5); LYMPHOCYTES % (AUTO) 13.6 %; MEAN CORPUSCULAR HEMOGLOBIN 27.4 pg (27.0-31.0); MEAN CORPUSCULAR HGB CONC 31.9 g/dL (32.0-36.0); MEAN PLATELET VOLUME 8.6 fL (7.9-10.8); MONOCYTES # (AUTO) 0.8 10^3/uL (0.0-1.0); MONOCYTES % (AUTO) 9.4 %; NEUTROPHILS # (AUTO) 6.1 10^3/uL (1.5-6.6); NEUTROPHILS % (AUTO) 74.3 %; PLT - PLATELET COUNT 308 10^3/uL (130-450); RED BLOOD COUNT 3.79 10^6/uL (4.20-5.40); WHITE BLOOD COUNT 8.1 x10^3/uL (4.8-10.8)
[2017-11-03 05:30] LABS: ALBUMIN 2.2 g/dL (3.2-5.5); ALBUMIN/GLOBULIN RATIO 0.7 (1.0-2.2); CALCIUM 9.4 mg/dL (8.5-10.3); CREATININE 1.4 mg/dL (0.4-1.0); TOTAL PROTEIN 5.2 g/dL (6.7-8.2)
--- NOTE | 2017-11-03 07:55 | Ultrasound Preliminary Report ---
Exam: US ABDOMEN LIMITED IMPRESSION: 1. Multiple complex heterogeneous lobular masses within the liver, too many to count. Findings are bryant spicious for metastatic disease. 2. Borderline prominent pancreatic duct. [facility] SITE ID: [id number]
--- NOTE | 2017-11-03 07:55 | Ultrasound Report ---
EXAM: ABDOMEN ULTRASOUND LIMITED, RUQ EXAM DATE: 11/03/2017 02:32 AM. CLINICAL HISTORY: Elevated liver enzyme, right breast mass. COMPARISON: None. TECHNIQUE: Real-time scanning was performed with static images obtained. FINDINGS: Liver: The liver parenchyma is extremely heterogeneous. There are multiple complex heterogeneous lobu lar masses, too many to count. The largest in the left lobe of the liver measures approximately 2.5 x 2.8 x 3.2 cm. The right lobe of the liver measures up to 19.8 cm. Main portal vein flow: Hepatopetal . Gallbladder: Normal. No stones, wall thickening, or sonographic Wright's sign. Biliary System: CBD measures 5 mm. No intrahepatic or extrahepatic ductal dilatation. Other: The pancreatic duct is mildly prominent, measuring up to 2.7 mm. The visualized portion of the pancreas is otherwise unremarkable. The pancreas is partly obscured by overlying bowel gas. IMPRESSION: 1. Multiple complex heterogeneous lobular masses within the liver, too many to count. Findings are bryant spicious for metastatic disease. 2. Borderline prominent pancreatic duct. [facility] Referring Provider Line: [phone] SITE ID: [id number]
[2017-11-03] MEDS: ALLOPURINOL 100 MG TABLET PO SCH (10:28)
[2017-11-03] MEDS: LACTOBACILLUS RHAMNOSUS GG CAPSULE PO SCH (10:29)
[2017-11-03] MEDS: DOCUSATE SODIUM 250 MG CAPSULE PO SCH (10:29)
[2017-11-03] MEDS: METOPROLOL TARTRATE 25 MG TABLET PO SCH ×2 (10:30→21:33)
[2017-11-03] MEDS: COLCHICINE 0.6 MG TABLET PO SCH (10:30)
[2017-11-03] MEDS: MULTIVITAMIN TABLET PO SCH (10:31)
[2017-11-03] MEDS: CHOLECALCIFEROL 1,000 UNIT TABLET PO SCH (10:31)
[2017-11-03] MEDS: cloNIDine 0.1 MG TABLET PO SCH ×2 (10:31→21:33)
[2017-11-03] MEDS: SENNA 8.6 MG TABLET PO SCH (10:32)
[2017-11-03] MEDS: POLYETHYLENE GLYCOL 3350 17 GM PACKET PO SCH (10:32)
[2017-11-03] MEDS: PSYLLIUM PACKET PO SCH (10:32)
[2017-11-03] MEDS ORDERED: LIDOCAINE 1%-EPI 1:100000 30 ML MDV ONE (14:57)
--- NOTE | 2017-11-03 16:06 | PROVIDER PROGRESS NOTE ---
Subjective - Prog Note Date Prog Note Date: 11/03/17 - Subjective Pt reports feeling: No change Subjective: pt had US of liver. the result reveals multiple complex heterogeneous lobular masses within liver, the finding are suspicious for metastatic disease. I discussed with pt and her . Pt and her requested to do biopsy. Dr. Zee did biopsy for pt. social work arranged home caregiver to assess pt for 24 caregiver, per pt and her request. Plan is d/c to home with 24 hours home caregiver, and followed up with palliative and possible hospice care Current Medications - Current Medications Current Medications: Active Medications Acetaminophen (Tylenol) 650 mg PO Q4HR PRN PRN Reason: Pain or Fever > 38C (100.4F) Last Admin: 10/30/17 19:30 Dose: 650 mg Acetaminophen/Hydrocodone Bitart ([place] 5/325) 1 tab PO Q4HR PRN PRN Reason: PAIN Last Admin: 11/02/17 23:07 Dose: 1 tab Allopurinol (Zyloprim) 200 mg PO DAILY [facility] Last Admin: 11/03/17 10:28 Dose: 200 mg Cholecalciferol (Vitamin D3) 1,000 unit PO DAILY [facility] Last Admin: 11/03/17 10:31 Dose: 1,000 unit Clonidine HCl (Catapres) 0.1 mg PO BID [facility] Last Admin: 11/03/17 10:31 Dose: 0.1 mg Colchicine (Colcrys) 0.6 mg PO QOD [facility] Last Admin: 11/03/17 10:30 Dose: 0.6 mg Cyclobenzaprine HCl (Flexeril) 10 mg PO TID PRN PRN Reason: Spasms Docusate Sodium (Colace 250mg Capsule) 250 - 500 mg PO DAILY [facility] Last Admin: 11/03/17 10:29 Dose: 250 mg Haloperidol (Haldol Inj) 0.5 mg IVP Q1HR PRN PRN Reason: PAIN Last Admin: 10/31/17 14:27 Dose: 0.5 mg Hydralazine HCl (Apresoline Inj) 10 mg IVP TID PRN PRN Reason: Hypertensive Emergency Sodium Chloride (Normal Saline 0.9%) 1,000 mls @ 75 mls/hr IV .[id number] [facility] Lactobacillus Rhamnosus (Culturelle) 1 cap PO DAILY [facility] Last Admin: 11/03/17 10:29 Dose: 1 cap Metoprolol Tartrate (Lopressor) 25 mg PO BID [facility] Last Admin: 11/03/17 10:30 Dose: 25 mg Morphine Sulfate (Morphine) 2 mg IVP Q2H PRN PRN Reason: PAIN Last Admin: 10/31/17 16:25 Dose: 2 mg Multi-Ingredient Ointment (Zinc Oxide) 1 applic TOP PRN PRN PRN Reason: Skin Care Multivitamins (Theragran) 1 tab PO DAILY [facility] Last Admin: 11/03/17 10:31 Dose: 1 tab Olanzapine (Zyprexa Odt) 5 mg TL 1600 [facility] Last Admin: 11/02/17 17:02 Dose: 5 mg Polyethylene Glycol (Miralax) 17 gm PO DAILY [facility] Last Admin: 11/03/17 10:32 Dose: Not Given Psyllium Hydrophilic Mucilloid (Metamucil) 1 packet PO DAILY [facility] Last Admin: 11/03/17 10:32 Dose: Not Given Senna (Senokot) 8.6 - 17.2 mg PO DAILY [facility] Last Admin: 11/03/17 10:32 Dose: Not Given Sodium Chloride (Normal Saline Flush 0.9%) 10 ml IVP PRN PRN PRN Reason: NEEDED PER PROVIDER ORDERS Last Admin: 10/31/17 07:05 Dose: 10 ml Sodium Chloride (Normal Saline Flush 0.9%) 10 ml IVP 0100,0900,1700 [facility] Last Admin: 11/03/17 10:31 Dose: 10 ml Lactobacillus Acidophilus [Probiotic Acidophilus] 1 tab PO DAILY 12/14/16 Allopurinol [Allopurinol] 200 mg PO DAILY 10/29/17 Cholecalciferol (Vitamin D3) [Vitajoy Daily D] 1,000 unit PO DAILY 10/29/17 Colchicine [Colchicine] 0.6 mg PO .EVERY OTHER DAY 10/29/17 Cyclobenzaprine HCl 10 mg PO TID PRN 10/29/17 Lisinopril [Lisinopril] 40 mg PO DAILY 10/29/17 Multivitamin [Theragran] 1 each PO DAILY 10/29/17 Objective - Vital Signs/Intake & Output Reviewed Vital Signs: Yes Vital Signs: Vital Signs x48h Pulse Resp BP BP Pulse Ox 11/03/17 10:30 165/68 H 11/03/17 09:10 91 20 165/68 H 94 Intake & Output: Intake & Output 10/31/17 11/01/17 11/02/17 11/03/17 23:59 23:59 23:59 23:59 Intake Total 1768.75 960 800 250 Output Total 150 Balance 1768.75 810 800 250 - Objective General Appearance: positive: No acute distress, Alert. negative: Lethargic Eyes Bilateral: positive: Normal inspection, PERRL, No lid inflammation, Conjunctivae nml ENT: positive: ENT inspection nml, Pharynx nml, No signs of dehydration. negative: Purulent nasal drainage, Pharyngeal erythema, Oral lesions Neck: positive: Nml inspection, Thyroid nml, No JVD, Trachea midline. negative : Thyromegaly, Lymphadenopathy (R), Lymphadenopathy (L), Stiff neck, Swelling/ bruising, Tracheal deviation Respiratory: positive: Chest non-tender, No respiratory distress, Breath sounds nml. negative: Wheezes, Rales, Rhonchi Cardiovascular: positive: Regular rate & rhythm, No murmur, No gallop. negative : Irregularly irregular, Extrasystoles, Tachycardia, Bradycardia, JVD present, Systolic murmur, Diastolic murmur Peripheral Pulses: 2+ Radial (R), 2+ Radial (L), 2+ Dorsalis pedis (R), 2+ Dorsalis pedis (L) Abdomen: positive: Non-tender, No organomegaly, Nml bowel sounds, No distention. negative: Tenderness, Guarding, Rebound Back: positive: Nml inspection. negative: CVA tenderness (R), CVA tenderness (L ) Skin: positive: Color nml, No rash, Warm, Dry. negative: Cyanosis, Diaphoresis , Pallor Extremities: positive: Non-tender, Full ROM, Nml appearance. negative: Calf tenderness, Joint swelling, Favian's sign/cords Neurologic/Psychiatric: positive: Sensation nml. negative: Sensory loss, Facial droop, Slurred/abnml speech, Depressed mood/affect - Lab Results Fish Bones: 11/03/17 04:50 11/03/17 04:50 Other Labs: Lab Results x24hrs 11/03/17 11/03/17 Range/Units 04:50 04:50 WBC 8.1 (4.8-10.8) x10^3/uL RBC 3.79 L (4.20-5.40) 10^6/uL Hgb 10.4 L (12.0-16.0) g/dL Hct 32.6 L (37.0-47.0) % MCV 86.0 (81.0-99.0) fL MCH 27.4 (27.0-31.0) pg MCHC 31.9 L (32.0-36.0) g/dL RDW 18.0 H (12.0-15.0) % Plt Count 308 (130-450) 10^3/uL MPV 8.6 (7.9-10.8) fL Neut # 6.1 (1.5-6.6) 10^3/uL Lymph # 1.1 L (1.5-3.5) 10^3/uL [place] # 0.8 (0.0-1.0) 10^3/uL Eos # 0.1 (0.0-0.7) 10^3/uL Baso # 0.1 (0.0-0.1) 10^3/uL Absolute Nucleated RBC 0.00 x10^3/uL Nucleated RBC % 0.0 /100WBC Sodium 134 L (135-145) mmol/L Potassium 4.1 (3.5-5.0) mmol/L Chloride 104 (101-111) mmol/L Carbon Dioxide 20 L (21-32) mmol/L Anion Gap 10.0 (6-13) BUN 34 H (6-20) mg/dL Creatinine 1.4 H (0.4-1.0) mg/dL Estimated GFR (MDRD) 36 L (>89) Glucose 99 (70-100) mg/dL Calcium 9.4 (8.5-10.3) mg/dL Total Bilirubin 1.0 (0.2-1.0) mg/dL AST 131 H (10-42) IU/L ALT 52 (10-60) IU/L Alkaline Phosphatase 679 H (42-121) IU/L Total Protein 5.2 L (6.7-8.2) g/dL Albumin 2.2 L (3.2-5.5) g/dL Globulin 3.0 (2.1-4.2) g/dL Albumin/Globulin Ratio 0.7 L (1.0-2.2) ABX Reporting Has patient been on IV antibiotics over the past 48 hours?: No Assessment/Plan - Problem List (1) Altered mental status Impression: (1) Altered mental status Impression: pt turn on her baseline, can talk logically neuro check continue support pt's MRI and CT of head was unremarkable it seems pt is on her baseline now, no acute delirium. neuro check continue support (2) Tachycardia Impression: resolved, stable, now continue tele and vital monitor continue Metoprolol The patient continues to have elevated heart rates and per chart review; rates between 70-100. No telemetry is indicated in this setting. Plan: Metoprolol 25 BID was increased to 50mg BID and we will continue to monitor vital signs. (3) Breast mass Impression: pt and her request to have biopsy, pt was consulted by palliative. To release pt and her family's anxiety, more comfortable care to pt, plus pt and her request to have biopsy, surgeon did biopsy for pt pt and her ask to have biopsy call Dr. Zee and NPO after midnight The patient has an open ulcerated right breast mass with a possible dislocated rib. The patient has a history of a left breast mastectomy. The patient's is in agreement with no further treatment, but would like a "biopsy" of the tissue as he wants to know if it is cancer. Plan: Monitor and treat for pain and consider a general surgery consult to perform a biopsy. (4) Fall Impression: continue fall precaution continue support The patient's most recent fall was ~2 weeks ago, according to her . It was determined that she will need 24 hour care in a facility. Plan: Continue fall precautions. (5) Congestive heart failure Impression: ECHO reveals pt had 45-50% EF, mild to moderate impaired. Discuss the result with family. continue beta blockers Monitor fluid balance using I/O and weights continue fluid balance with I/O, and weight continue support The patient has a known history of this, and confirmation upon chart review with Flora. The patient was too agitated to allow an echocardiogram on this admit, so this is on hold. We are using beta blockers and clonidine for now until results of echo are back. Lungs sounds indicate mild fluid overload. Plan: Monitor fluid balance using I/O and weights. (6) Hypertension Impression: stable, continue vital monitor The patient's blood pressure is only mildly improved, but the patient has been agitated that is worse than yesterday. Diastolic blood pressures have been the most concerning between 80-110. She was started on metoprolol 50mg BID and Clonidine was added. Plan: Continue to monitor vital signs. (7) Multi-infarct dementia Impression: stable, continue support. The patient was found to have several areas of PRIOR infarct as per imaging that was completed on admission. She continues to be combative, restraints and now has Zyprexa scheduled. I spent at least 30 minutes [id number] with the patient and her , Jeremiah regarding the next step in her plan of care. Due to her debilitated state, her agreed that bringing her home is no longer a good option. Plan: Continue support, and discharge is pending on placement. (8) elevated liver enzyme US reveals multiple complex heterogeneous lobular masses within liver, the finding are suspicious for metastatic disease. I discussed the result with pt and her . Pt and her request biopsy of the breast. surgeon did. the pathology result is pending now pt and her request 24 hours home caregiver, social worker health services arrange today after to assess pt plan to d/c to home tomorrow, with 24 hours caregiver, followed with palliative and hospice care. Qualifiers: Altered mental status type: unspecified Qualified Code(s): R41.82 - Altered mental status, unspecified
[2017-11-03] MEDS: OLANZapine ODT 5 MG TABLET TL SCH (18:21)
--- NOTE | 2017-11-03 18:48 | ADVANCE CARE PLANNING NOTE ---
Advance Care Planning - Date/Time Date: 11/03/17 Time: 18:46 - Purpose of encounter Text: advance care for pt with palliative and hospice - Parties in attendance Parties in attendance: pt and pt's - Decisional capacity Decisional capacity of: planned to d/c to home with 24 hours caregiver, and palliative and hospice care provider to follow up - Subjective/Patient's story Subjective/Patient's story: pt is with hx of breast cancer, now present large bump and maceration at the middle of right breast, and US reveals metastatic liver masses. Pt and her agree to have palliative and hospice care, and follow up. - Objective/Medical story Objective/Medical Story: hx of breast cancer, now present large bump and maceration at the middle of right breast, and altered mental status and fall. - Goals of Care Goals of care determinations: follow up palliative and hospice care - Plan Plan: d/c to home with 24 hours caregiver. palliative and hospice care provider to follow up in the home setting. - Code Status Code Status: Do Not Attempt Resuscitation - Time Spent on Advance Care Planning Time spent on advance care plannin
[2017-11-03] MEDS: SODIUM CHLORIDE 0.9% 1,000 ML IV SCH (19:23)
[2017-11-04] MEDS: SODIUM CHLORIDE FLUSH 0.9% 10 ML SYRINGE IVP SCH ×3 (02:15→23:09)
[2017-11-04] MEDS: SODIUM CHLORIDE 0.9% 1,000 ML IV SCH ×2 (04:42→14:24)
[2017-11-04 04:52] LABS: BASOPHILS # (AUTO) 0.1 10^3/uL (0.0-0.1); BASOPHILS % (AUTO) 0.7 %; EOSINOPHILS # (AUTO) 0.1 10^3/uL (0.0-0.7); EOSINOPHILS % (AUTO) 1.3 %; HGB - HEMOGLOBIN 11.6 g/dL (12.0-16.0); LYMPHOCYTES # (AUTO) 1.3 10^3/uL (1.5-3.5); LYMPHOCYTES % (AUTO) 12.8 %; MEAN CORPUSCULAR HEMOGLOBIN 27.1 pg (27.0-31.0); MEAN CORPUSCULAR HGB CONC 31.5 g/dL (32.0-36.0); MEAN CORPUSCULAR VOLUME 86.1 fL (81.0-99.0); MEAN PLATELET VOLUME 8.7 fL (7.9-10.8); MONOCYTES # (AUTO) 0.9 10^3/uL (0.0-1.0); MONOCYTES % (AUTO) 8.8 %; NEUTROPHILS % (AUTO) 76.4 %; PLT - PLATELET COUNT 408 10^3/uL (130-450); RED BLOOD COUNT 4.29 10^6/uL (4.20-5.40); RED CELL DISTRIBUTION WIDTH 18.5 % (12.0-15.0); WHITE BLOOD COUNT 10.5 x10^3/uL (4.8-10.8)
[2017-11-04 05:05] LABS: ALBUMIN 2.4 g/dL (3.2-5.5); ALBUMIN/GLOBULIN RATIO 0.7 (1.0-2.2); BILIRUBIN,TOTAL 1.2 mg/dL (0.2-1.0); CALCIUM 9.7 mg/dL (8.5-10.3); CREATININE 1.3 mg/dL (0.4-1.0); MAGNESIUM 1.7 mg/dL (1.7-2.8); TOTAL PROTEIN 5.9 g/dL (6.7-8.2)
[2017-11-04] MEDS: METOPROLOL TARTRATE 25 MG TABLET PO SCH ×2 (08:14→18:15)
[2017-11-04] MEDS: ALLOPURINOL 100 MG TABLET PO SCH (08:14)
[2017-11-04] MEDS: LACTOBACILLUS RHAMNOSUS GG CAPSULE PO SCH (08:15)
[2017-11-04] MEDS: MULTIVITAMIN TABLET PO SCH (08:15)
[2017-11-04] MEDS: cloNIDine 0.1 MG TABLET PO SCH ×2 (08:15→18:16)
[2017-11-04] MEDS: CHOLECALCIFEROL 1,000 UNIT TABLET PO SCH (08:15)
[2017-11-04] MEDS: DOCUSATE SODIUM 250 MG CAPSULE PO SCH (08:16)
[2017-11-04] MEDS: PSYLLIUM PACKET PO SCH (09:10)
[2017-11-04] MEDS: SENNA 8.6 MG TABLET PO SCH (09:10)
[2017-11-04] MEDS: POLYETHYLENE GLYCOL 3350 17 GM PACKET PO SCH (09:10)
--- NOTE | 2017-11-04 13:02 | PROCEDURE REPORT ---
DATE OF SERVICE: 11/03/2017 Physician: Amarjit Zee MD PROCEDURE PERFORMED: Right breast biopsy with Dontrell-Cut needle. INDICATIONS FOR PROCEDURE: Patient presents with a right breast mass with the nipple being eroded by the mass. She has multiple lesions in the liver. The needle biopsy will be obtained in order to help guide the diagnosis and treatment. PROCEDURE: After informed consent was obtained from the patient and her , the right breast was then prepped and draped in a usual sterile fashion. The mass was underneath the nipple and measured at least 8 cm in size. The skin in the inner quadrant overlying the mass was then prepped and injected with local anesthesia. A small incision was made in the skin using a scalpel. A 14-gauge Dontrell-Cut needle was then used to obtain 4 core biopsies without problems. No significant bleeding was noted. Dermabond was then applied at the incision site. There were no immediate complications. RECOMMENDATIONS: We await the pathology from the biopsy. TD: 11/03/2017 15:37
[2017-11-04] MEDS: HEPARIN 5,000 UNIT/ML VIAL SUBQ SCH ×2 (14:50→23:09)
[2017-11-04] MEDS: OLANZapine ODT 5 MG TABLET TL SCH (16:02)
[2017-11-04] MEDS: HALOPERIDOL 5 MG/ML VIAL IVP PRN (16:25)
--- NOTE | 2017-11-04 17:09 | PROVIDER PROGRESS NOTE ---
Subjective - Prog Note Date Prog Note Date: 11/04/17 - Subjective Pt reports feeling: No change Subjective: Dr. Reaves hospice provider discussed with pt. Dr. Reaves think pt and his are not ready for hospice yet. Her waits for biopsy result, and possible choose for Mastectomy or oncology consult as out-pt. Now finally wait for pt's to talk with her caregiver for setting of home care, then d/c pt to home. Current Medications - Current Medications Current Medications: Active Medications Acetaminophen (Tylenol) 650 mg PO Q4HR PRN PRN Reason: Pain or Fever > 38C (100.4F) Last Admin: 10/30/17 19:30 Dose: 650 mg Acetaminophen/Hydrocodone Bitart ([place] 5/325) 1 tab PO Q4HR PRN PRN Reason: PAIN Last Admin: 11/02/17 23:07 Dose: 1 tab Allopurinol (Zyloprim) 200 mg PO DAILY [facility] Last Admin: 11/04/17 08:14 Dose: 200 mg Cholecalciferol (Vitamin D3) 1,000 unit PO DAILY [facility] Last Admin: 11/04/17 08:15 Dose: 1,000 unit Clonidine HCl (Catapres) 0.1 mg PO BID [facility] Last Admin: 11/04/17 08:15 Dose: 0.1 mg Colchicine (Colcrys) 0.6 mg PO QOD [facility] Last Admin: 11/03/17 10:30 Dose: 0.6 mg Cyclobenzaprine HCl (Flexeril) 10 mg PO TID PRN PRN Reason: Spasms Docusate Sodium (Colace 250mg Capsule) 250 - 500 mg PO DAILY [facility] Last Admin: 11/04/17 08:16 Dose: 250 mg Haloperidol (Haldol Inj) 0.5 mg IVP Q1HR PRN PRN Reason: PAIN Last Admin: 10/31/17 14:27 Dose: 0.5 mg Heparin Sodium (Porcine) () 2,500 unit SUBQ BID [facility] Last Admin: 11/04/17 14:50 Dose: 2,500 unit Hydralazine HCl (Apresoline Inj) 10 mg IVP TID PRN PRN Reason: Hypertensive Emergency Sodium Chloride (Normal Saline 0.9%) 1,000 mls @ 75 mls/hr IV .[id number] [facility] Last Admin: 11/04/17 14:24 Dose: 75 mls/hr Lactobacillus Rhamnosus (Culturelle) 1 cap PO DAILY [facility] Last Admin: 11/04/17 08:15 Dose: 1 cap Metoprolol Tartrate (Lopressor) 25 mg PO BID [facility] Last Admin: 11/04/17 08:14 Dose: 25 mg Morphine Sulfate (Morphine) 2 mg IVP Q2H PRN PRN Reason: PAIN Last Admin: 10/31/17 16:25 Dose: 2 mg Multi-Ingredient Ointment (Zinc Oxide) 1 applic TOP PRN PRN PRN Reason: Skin Care Multivitamins (Theragran) 1 tab PO DAILY [facility] Last Admin: 11/04/17 08:15 Dose: 1 tab Olanzapine (Zyprexa Odt) 5 mg TL 1600 [facility] Last Admin: 11/04/17 16:02 Dose: 5 mg Polyethylene Glycol (Miralax) 17 gm PO DAILY [facility] Last Admin: 11/04/17 09:10 Dose: Not Given Psyllium Hydrophilic Mucilloid (Metamucil) 1 packet PO DAILY [facility] Last Admin: 11/04/17 09:10 Dose: Not Given Senna (Senokot) 8.6 - 17.2 mg PO DAILY [facility] Last Admin: 11/04/17 09:10 Dose: Not Given Sodium Chloride (Normal Saline Flush 0.9%) 10 ml IVP PRN PRN PRN Reason: NEEDED PER PROVIDER ORDERS Last Admin: 10/31/17 07:05 Dose: 10 ml Sodium Chloride (Normal Saline Flush 0.9%) 10 ml IVP 0100,0900,1700 [facility] Last Admin: 11/04/17 09:11 Dose: Not Given Lactobacillus Acidophilus [Probiotic Acidophilus] 1 tab PO DAILY 12/14/16 Allopurinol [Allopurinol] 200 mg PO DAILY 10/29/17 Cholecalciferol (Vitamin D3) [Vitajoy Daily D] 1,000 unit PO DAILY 10/29/17 Colchicine [Colchicine] 0.6 mg PO .EVERY OTHER DAY 10/29/17 Cyclobenzaprine HCl 10 mg PO TID PRN 10/29/17 Lisinopril [Lisinopril] 40 mg PO DAILY 10/29/17 Multivitamin [Theragran] 1 each PO DAILY 10/29/17 Objective - Vital Signs/Intake & Output Reviewed Vital Signs: Yes Vital Signs: Vital Signs x48h Temp Pulse Resp BP Pulse Ox 11/04/17 16:41 36.4 C L 87 24 148/52 H 96 11/04/17 09:34 36.4 C L 94 19 153/83 H 96 Intake & Output: Intake & Output 11/01/17 11/02/17 11/03/17 11/04/17 23:59 23:59 23:59 23:59 Intake Total 960 355 735 2759.25 Output Total 150 Balance 810 626 999 7664.25 - Objective General Appearance: positive: No acute distress, Alert. negative: Lethargic Eyes Bilateral: positive: Normal inspection, PERRL, No lid inflammation, Conjunctivae nml ENT: positive: ENT inspection nml, Pharynx nml, No signs of dehydration. negative: Purulent nasal drainage, Pharyngeal erythema, Oral lesions Neck: positive: Nml inspection, Thyroid nml, No JVD, Trachea midline. negative : Thyromegaly, Lymphadenopathy (R), Lymphadenopathy (L), Stiff neck, Carotid bruit, Swelling/bruising, Tracheal deviation Respiratory: positive: Chest non-tender, No respiratory distress, Breath sounds nml. negative: Wheezes, Rales, Rhonchi Cardiovascular: positive: Regular rate & rhythm, No murmur, No gallop. negative : Irregularly irregular, Extrasystoles, Tachycardia, Bradycardia, Systolic murmur, Diastolic murmur Peripheral Pulses: 2+ Radial (R), 2+ Radial (L), 2+ Dorsalis pedis (R), 2+ Dorsalis pedis (L) Abdomen: positive: Non-tender, No organomegaly, Nml bowel sounds, No distention. negative: Tenderness, Guarding, Rebound Back: positive: Nml inspection. negative: CVA tenderness (R), CVA tenderness (L ) Skin: positive: Color nml, No rash, Warm, Dry. negative: Cyanosis, Diaphoresis , Pallor Extremities: positive: Non-tender, Full ROM, Nml appearance. negative: Calf tenderness, Joint swelling, Favian's sign/cords Neurologic/Psychiatric: positive: Sensation nml, Mood/affect nml. negative: Sensory loss, Facial droop, Slurred/abnml speech, Depressed mood/affect - Lab Results Fish Bones: 11/04/17 04:25 11/04/17 04:25 Other Labs: Lab Results x24hrs 11/04/17 11/04/17 Range/Units 04:25 04:25 WBC 10.5 (4.8-10.8) x10^3/uL RBC 4.29 (4.20-5.40) 10^6/uL Hgb 11.6 L (12.0-16.0) g/dL Hct 36.9 L (37.0-47.0) % MCV 86.1 (81.0-99.0) fL MCH 27.1 (27.0-31.0) pg MCHC 31.5 L (32.0-36.0) g/dL RDW 18.5 H (12.0-15.0) % Plt Count 408 (130-450) 10^3/uL MPV 8.7 (7.9-10.8) fL Neut # 8.0 H (1.5-6.6) 10^3/uL Lymph # 1.3 L (1.5-3.5) 10^3/uL [place] # 0.9 (0.0-1.0) 10^3/uL Eos # 0.1 (0.0-0.7) 10^3/uL Baso # 0.1 (0.0-0.1) 10^3/uL Absolute Nucleated RBC 0.00 x10^3/uL Nucleated RBC % 0.0 /100WBC Sodium 136 (135-145) mmol/L Potassium 4.4 (3.5-5.0) mmol/L Chloride 107 (101-111) mmol/L Carbon Dioxide 19 L (21-32) mmol/L Anion Gap 10.0 (6-13) BUN 28 H (6-20) mg/dL Creatinine 1.3 H (0.4-1.0) mg/dL Estimated GFR (MDRD) 39 L (>89) Glucose 101 H (70-100) mg/dL Calcium 9.7 (8.5-10.3) mg/dL Magnesium 1.7 (1.7-2.8) mg/dL Total Bilirubin 1.2 H (0.2-1.0) mg/dL AST 119 H (10-42) IU/L ALT 51 (10-60) IU/L Alkaline Phosphatase 713 H (42-121) IU/L Total Protein 5.9 L (6.7-8.2) g/dL Albumin 2.4 L (3.2-5.5) g/dL Globulin 3.5 (2.1-4.2) g/dL Albumin/Globulin Ratio 0.7 L (1.0-2.2) Assessment/Plan - Problem List (1) Breast mass Impression: Impression: remain unchanged neuro check continue support pt turn on her baseline, can talk logically neuro check continue support pt's MRI and CT of head was unremarkable it seems pt is on her baseline now, no acute delirium. neuro check continue support (2) Tachycardia Impression: resolved, stable, now continue tele and vital monitor continue Metoprolol The patient continues to have elevated heart rates and per chart review; rates between 70-100. No telemetry is indicated in this setting. Plan: Metoprolol 25 BID was increased to 50mg BID and we will continue to monitor vital signs. (3) Breast mass Impression: biopsy result is pending pt and her request to have biopsy, pt was consulted by palliative. To release pt and her family's anxiety, more comfortable care to pt, plus pt and her request to have biopsy, surgeon did biopsy for pt pt and her ask to have biopsy call Dr. Zee and NPO after midnight The patient has an open ulcerated right breast mass with a possible dislocated rib. The patient has a history of a left breast mastectomy. The patient's is in agreement with no further treatment, but would like a "biopsy" of the tissue as he wants to know if it is cancer. Plan: Monitor and treat for pain and consider a general surgery consult to perform a biopsy. (4) Fall Impression: continue fall precaution continue support The patient's most recent fall was ~2 weeks ago, according to her . It was determined that she will need 24 hour care in a facility. Plan: Continue fall precautions. (5) Congestive heart failure Impression: ECHO reveals pt had 45-50% EF, mild to moderate impaired. Discuss the result with family. continue beta blockers Monitor fluid balance using I/O and weights continue fluid balance with I/O, and weight continue support The patient has a known history of this, and confirmation upon chart review with Flora. The patient was too agitated to allow an echocardiogram on this admit, so this is on hold. We are using beta blockers and clonidine for now until results of echo are back. Lungs sounds indicate mild fluid overload. Plan: Monitor fluid balance using I/O and weights. (6) Hypertension Impression: stable, continue vital monitor The patient's blood pressure is only mildly improved, but the patient has been agitated that is worse than yesterday. Diastolic blood pressures have been the most concerning between 80-110. She was started on metoprolol 50mg BID and Clonidine was added. Plan: Continue to monitor vital signs. (7) Multi-infarct dementia Impression: stable, continue support. The patient was found to have several areas of PRIOR infarct as per imaging that was completed on admission. She continues to be combative, restraints and now has Zyprexa scheduled. I spent at least 30 minutes [id number] with the patient and her , Jeremiah regarding the next step in her plan of care. Due to her debilitated state, her agreed that bringing her home is no longer a good option. Plan: Continue support, and discharge is pending on placement. (8) elevated liver enzyme US reveals multiple complex heterogeneous lobular masses within liver, the finding are suspicious for metastatic disease. I discussed the result with pt and her . Pt and her request biopsy of the breast. surgeon did. the pathology result is pending now pt and her request 24 hours home caregiver, outreach and education social worker arrange today after to assess pt plan to d/c to home tomorrow, with 24 hours caregiver, followed with palliative and hospice care. plan to d/c tonight or tomorrow. (3) Altered mental status Qualifiers: Altered mental status type: unspecified Qualified Code(s): R41.82 - Altered mental status, unspecified
[2017-11-05] MEDS: hydrALAZINE INJ 20 MG/ML VIAL IVP PRN (00:37)
[2017-11-05] MEDS: SODIUM CHLORIDE FLUSH 0.9% 10 ML SYRINGE IVP SCH ×4 (01:27→23:39)
[2017-11-05] MEDS: MORPHINE 2 MG/ML SYRINGE IVP PRN ×3 (01:32→14:09)
[2017-11-05 05:01] LABS: BASOPHILS # (AUTO) 0.2 10^3/uL (0.0-0.1); BASOPHILS % (AUTO) 1.4 %; EOSINOPHILS # (AUTO) 0.1 10^3/uL (0.0-0.7); EOSINOPHILS % (AUTO) 0.9 %; HGB - HEMOGLOBIN 12.1 g/dL (12.0-16.0); LYMPHOCYTES # (AUTO) 1.8 10^3/uL (1.5-3.5); LYMPHOCYTES % (AUTO) 15.4 %; MEAN CORPUSCULAR HEMOGLOBIN 26.6 pg (27.0-31.0); MEAN CORPUSCULAR HGB CONC 30.9 g/dL (32.0-36.0); MEAN PLATELET VOLUME 8.2 fL (7.9-10.8); MONOCYTES # (AUTO) 1.1 10^3/uL (0.0-1.0); MONOCYTES % (AUTO) 9.6 %; NEUTROPHILS # (AUTO) 8.6 10^3/uL (1.5-6.6); NEUTROPHILS % (AUTO) 72.7 %; PLT - PLATELET COUNT 488 10^3/uL (130-450); RED BLOOD COUNT 4.55 10^6/uL (4.20-5.40); RED CELL DISTRIBUTION WIDTH 18.8 % (12.0-15.0); WHITE BLOOD COUNT 11.9 x10^3/uL (4.8-10.8)
[2017-11-05 05:15] LABS: ALBUMIN 2.7 g/dL (3.2-5.5); ALBUMIN/GLOBULIN RATIO 0.7 (1.0-2.2); BILIRUBIN,TOTAL 1.3 mg/dL (0.2-1.0); CALCIUM 10.3 mg/dL (8.5-10.3); CREATININE 1.2 mg/dL (0.4-1.0); TOTAL PROTEIN 6.5 g/dL (6.7-8.2)
[2017-11-05] MEDS: ALLOPURINOL 100 MG TABLET PO SCH (08:07)
[2017-11-05] MEDS: DOCUSATE SODIUM 250 MG CAPSULE PO SCH (08:08)
[2017-11-05] MEDS: SENNA 8.6 MG TABLET PO SCH (08:08)
[2017-11-05] MEDS: MULTIVITAMIN TABLET PO SCH (08:08)
[2017-11-05] MEDS: LACTOBACILLUS RHAMNOSUS GG CAPSULE PO SCH (08:08)
[2017-11-05] MEDS: PSYLLIUM PACKET PO SCH (08:09)
[2017-11-05] MEDS: POLYETHYLENE GLYCOL 3350 17 GM PACKET PO SCH (08:09)
[2017-11-05] MEDS: METOPROLOL TARTRATE 25 MG TABLET PO SCH ×2 (08:09→22:02)
[2017-11-05] MEDS: cloNIDine 0.1 MG TABLET PO SCH ×2 (08:09→21:54)
[2017-11-05] MEDS: CHOLECALCIFEROL 1,000 UNIT TABLET PO SCH (08:10)
--- NOTE | 2017-11-05 09:50 | PROVIDER PROGRESS NOTE ---
Subjective - General Admit Date: 10/29/17 - Review of Systems General: positive: Other (confused) All Other Systems: positive: Reviewed and negative Objective - Patient Data Vital Signs: Vital Signs x48h Temp Pulse Resp BP BP Pulse Ox 11/05/17 08:09 183/83 H 11/05/17 07:42 183/83 H 11/05/17 07:34 36.4 C L 101 H 20 203/91 H 94 11/05/17 05:33 103 H 191/94 H 11/05/17 01:45 92 173/68 H Intake & Output: Intake and Output Totals x24h 11/03/17 11/04/17 11/05/17 23:59 23:59 23:59 Intake Total 850 2676.25 1152.5 Balance 850 2676.25 1152.5 - Lab Results Lab Results: 11/05/17 04:48 11/05/17 04:48 Other Lab Results: Lab Results x24hrs 11/05/17 11/05/17 Range/Units 04:48 04:48 WBC 11.9 H (4.8-10.8) x10^3/uL RBC 4.55 (4.20-5.40) 10^6/uL Hgb 12.1 (12.0-16.0) g/dL Hct 39.1 (37.0-47.0) % MCV 86.0 (81.0-99.0) fL MCH 26.6 L (27.0-31.0) pg MCHC 30.9 L (32.0-36.0) g/dL RDW 18.8 H (12.0-15.0) % Plt Count 488 H (130-450) 10^3/uL MPV 8.2 (7.9-10.8) fL Neut # 8.6 H (1.5-6.6) 10^3/uL Lymph # 1.8 (1.5-3.5) 10^3/uL [place] # 1.1 H (0.0-1.0) 10^3/uL Eos # 0.1 (0.0-0.7) 10^3/uL Baso # 0.2 H (0.0-0.1) 10^3/uL Absolute Nucleated RBC 0.00 x10^3/uL Nucleated RBC % 0.0 /100WBC Sodium 140 (135-145) mmol/L Potassium 4.5 (3.5-5.0) mmol/L Chloride 107 (101-111) mmol/L Carbon Dioxide 17 L (21-32) mmol/L Anion Gap 16.0 H (6-13) BUN 23 H (6-20) mg/dL Creatinine 1.2 H (0.4-1.0) mg/dL Estimated GFR (MDRD) 43 L (>89) Glucose 99 (70-100) mg/dL Calcium 10.3 (8.5-10.3) mg/dL Total Bilirubin 1.3 H (0.2-1.0) mg/dL AST 119 H (10-42) IU/L ALT 55 (10-60) IU/L Alkaline Phosphatase 725 H (42-121) IU/L Total Protein 6.5 L (6.7-8.2) g/dL Albumin 2.7 L (3.2-5.5) g/dL Globulin 3.8 (2.1-4.2) g/dL Albumin/Globulin Ratio 0.7 L (1.0-2.2) - Current Medications Current Medications: Current Medications Generic Name Dose Route Start Last Admin Trade Name Freq PRN Reason Stop Dose Admin Acetaminophen 650 mg 10/30/17 18:38 10/30/17 19:30 Tylenol PO 650 mg Q4HR PRN Administration Pain or Fever > 38C (100.4F) Acetaminophen/Hydrocodone Bitart 1 tab 10/31/17 06:34 11/02/17 23:07 [place] 5/325 PO 1 tab Q4HR PRN Administration PAIN Allopurinol 200 mg 10/30/17 09:00 11/05/17 08:07 Zyloprim PO 200 mg DAILY BRETT Administration Cholecalciferol 1,000 unit 10/30/17 09:00 11/05/17 08:10 Vitamin D3 PO 1,000 unit DAILY BRETT Administration Clonidine HCl 0.1 mg 10/31/17 16:00 11/05/17 08:09 Catapres PO 0.1 mg BID BRETT Administration Colchicine 0.6 mg 10/29/17 22:00 11/03/17 10:30 Colcrys PO 0.6 mg QOD BRETT Administration Docusate Sodium 250 - 500 mg 10/30/17 13:09 11/05/17 08:08 Colace 250mg Capsule PO 250 mg DAILY BRETT Administration Haloperidol 0.5 mg 10/31/17 06:34 11/04/17 16:25 Haldol Inj IVP 5 mg Q1HR PRN Administration PAIN Heparin Sodium (Porcine) 2,500 unit 11/04/17 12:00 11/04/17 23:09 SUBQ Not Given BID BRETT Hydralazine HCl 10 mg 11/03/17 07:39 11/05/17 00:37 Apresoline Inj IVP 10 mg TID PRN Administration Hypertensive Emergency Lactobacillus Rhamnosus 1 cap 10/30/17 09:00 11/05/17 08:08 Culturelle PO 1 cap DAILY BRETT Administration Morphine Sulfate 2 mg 10/31/17 15:12 11/05/17 08:14 Morphine IVP 2 mg Q2H PRN Administration PAIN Multivitamins 1 tab 10/30/17 09:00 11/05/17 08:08 Theragran PO 1 tab DAILY BRETT Administration Olanzapine 5 mg 10/31/17 16:00 11/04/17 16:02 Zyprexa Odt TL 5 mg 1600 BRETT Administration Polyethylene Glycol 17 gm 10/30/17 09:00 11/05/17 08:09 Miralax PO 17 gm DAILY BRETT Administration Psyllium Hydrophilic Mucilloid 1 packet 10/30/17 18:41 11/05/17 08:09 Metamucil PO 1 packet DAILY BRETT Administration Senna 8.6 - 17.2 mg 10/30/17 13:10 11/05/17 08:08 Senokot PO 8.6 mg DAILY BRETT Administration Sodium Chloride 10 ml 10/29/17 17:58 10/31/17 07:05 Normal Saline Flush 0.9% IVP 10 ml PRN PRN Administration NEEDED PER PROVIDER ORDERS Sodium Chloride 10 ml 10/30/17 01:00 11/05/17 01:27 Normal Saline Flush 0.9% IVP Not Given 0100,0900,1700 BRETT - Physical Exam Skin: positive: Other (biopsy site right breast dermabond over site.) Impression/Plan - Problem List Problem List: Dr Reaves has discussed with patients what hospice is and pallitive care. Mrs. 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 The breast cancer is large over 8 cm eroding the nipple and areolar complex. I did a trucut biopsy of the mass yesterday with pathology pending. I feel that the patient may live some time with the breast cancer with it probably becoming a problem with open wound, drainage, foul smelling in the future. If hormone positive this may or may not happening. Her quality of life would probably be better undergoing a simple mastectomy to prevent those complications from happening in the future. If she did not have surgery and those complications occur in the future, she most likely wound not be a candidate for surgery then with the wounds then becoming an issue. I spoke at length with Mr Kelley with the patient being present. Dr Reaves also expresses this view. She would be at low to moderate risk of perioperitive complications but I believe this is small compared to the risk of developing a difficult wound at the cancer site in the future. The agrees with this assessment and would like to proceed with surgery. He will need to set up a caregiver at home that can help mobilize patient, assist in feedings, and be familiar with wound/drain care. The drain may stay in 1-4 weeks to prevent seromas which may still occur despite the drain. Other risks and possible complications include flap necrosis, wound healing problems, recurrence of cancer in the area, heart/lung failure, anesthesia risks, , injury to nerves with loss of arm function, injury to vessels with bleeding, arm swelling, infection. He accepts risks and wishes to proceed with surgery. I have contact my office to aid with setting up caregiver after surgery. Will plan on preop visit on 11/10 and surgery on 11/12. Will need oncology f/u after surgery.
[2017-11-05] MEDS: HEPARIN 5,000 UNIT/ML VIAL SUBQ SCH ×2 (10:34→21:55)
--- NOTE | 2017-11-05 10:39 | XRAY Report ---
FRONTAL CHEST: 11/05/2017 INDICATION: Shortness of breath. COMPARISON: 10/29/2017. REPORT: Frontal view of the chest demonstrates a new right lower lobe infiltrate. Trace right effusion is present. No pneumothorax. IMPRESSION: NEW RIGHT LOWER LOBE INFILTRATE WITH TRACE RIGHT EFFUSION. TD: 11/05/2017 09:40
[2017-11-05] MEDS: SODIUM CHLORIDE FLUSH 0.9% 10 ML SYRINGE IVP PRN (13:05)
[2017-11-05] MEDS: CEFEPIME 1 GM in SODIUM CHLORIDE 0.9% MINIBAG 100 ML IV SCH ×2 (13:05→22:12)
--- NOTE | 2017-11-05 14:26 | PROVIDER PROGRESS NOTE ---
Subjective - Prog Note Date Prog Note Date: 11/05/17 - Subjective Pt reports feeling: No change Subjective: pt report some cough, denies chest pain, fever. Current Medications - Current Medications Current Medications: Active Medications Acetaminophen (Tylenol) 650 mg PO Q4HR PRN PRN Reason: Pain or Fever > 38C (100.4F) Last Admin: 10/30/17 19:30 Dose: 650 mg Acetaminophen/Hydrocodone Bitart ([place] 5/325) 1 tab PO Q4HR PRN PRN Reason: PAIN Last Admin: 11/02/17 23:07 Dose: 1 tab Allopurinol (Zyloprim) 200 mg PO DAILY [facility] Last Admin: 11/05/17 08:07 Dose: 200 mg Cholecalciferol (Vitamin D3) 1,000 unit PO DAILY [facility] Last Admin: 11/05/17 08:10 Dose: 1,000 unit Clonidine HCl (Catapres) 0.1 mg PO BID [facility] Last Admin: 11/05/17 08:09 Dose: 0.1 mg Colchicine (Colcrys) 0.6 mg PO QOD [facility] Last Admin: 11/03/17 10:30 Dose: 0.6 mg Cyclobenzaprine HCl (Flexeril) 10 mg PO TID PRN PRN Reason: Spasms Docusate Sodium (Colace 250mg Capsule) 250 - 500 mg PO DAILY [facility] Last Admin: 11/05/17 08:08 Dose: 250 mg Haloperidol (Haldol Inj) 0.5 mg IVP Q1HR PRN PRN Reason: PAIN Last Admin: 11/04/17 16:25 Dose: 5 mg Heparin Sodium (Porcine) () 2,500 unit SUBQ BID [facility] Last Admin: 11/05/17 10:34 Dose: 2,500 unit Hydralazine HCl (Apresoline Inj) 10 mg IVP TID PRN PRN Reason: Hypertensive Emergency Last Admin: 11/05/17 00:37 Dose: 10 mg Cefepime HCl 1 gm/ Sodium (Chloride) 100 mls @ 200 mls/hr IV Q8H [facility] Last Admin: 11/05/17 13:05 Dose: 200 mls/hr Lactobacillus Rhamnosus (Culturelle) 1 cap PO DAILY [facility] Last Admin: 11/05/17 08:08 Dose: 1 cap Metoprolol Tartrate (Lopressor) 50 mg PO BID [facility] Morphine Sulfate (Morphine) 2 mg IVP Q2H PRN PRN Reason: PAIN Last Admin: 11/05/17 14:09 Dose: 2 mg Multi-Ingredient Ointment (Zinc Oxide) 1 applic TOP PRN PRN PRN Reason: Skin Care Multivitamins (Theragran) 1 tab PO DAILY [facility] Last Admin: 11/05/17 08:08 Dose: 1 tab Olanzapine (Zyprexa Odt) 5 mg TL 1600 [facility] Last Admin: 11/04/17 16:02 Dose: 5 mg Polyethylene Glycol (Miralax) 17 gm PO DAILY [facility] Last Admin: 11/05/17 08:09 Dose: 17 gm Psyllium Hydrophilic Mucilloid (Metamucil) 1 packet PO DAILY [facility] Last Admin: 11/05/17 08:09 Dose: 1 packet Senna (Senokot) 8.6 - 17.2 mg PO DAILY [facility] Last Admin: 11/05/17 08:08 Dose: 8.6 mg Sodium Chloride (Normal Saline Flush 0.9%) 10 ml IVP PRN PRN PRN Reason: NEEDED PER PROVIDER ORDERS Last Admin: 11/05/17 13:05 Dose: 10 ml Sodium Chloride (Normal Saline Flush 0.9%) 10 ml IVP 0100,0900,1700 [facility] Last Admin: 11/05/17 10:34 Dose: 10 ml Lactobacillus Acidophilus [Probiotic Acidophilus] 1 tab PO DAILY 12/14/16 Allopurinol [Allopurinol] 200 mg PO DAILY 10/29/17 Cholecalciferol (Vitamin D3) [Vitajoy Daily D] 1,000 unit PO DAILY 10/29/17 Colchicine [Colchicine] 0.6 mg PO .EVERY OTHER DAY 10/29/17 Cyclobenzaprine HCl 10 mg PO TID PRN 10/29/17 Lisinopril [Lisinopril] 40 mg PO DAILY 10/29/17 Multivitamin [Theragran] 1 each PO DAILY 10/29/17 Objective - Vital Signs/Intake & Output Reviewed Vital Signs: Yes Vital Signs: Vital Signs x48h Temp Pulse Resp BP BP BP Pulse Ox 11/05/17 14:13 74 14 164/71 H 94 11/05/17 08:09 183/83 H 11/05/17 07:42 183/83 H 11/05/17 07:34 36.4 C L 101 H 20 203/91 H 94 Intake & Output: Intake & Output 11/02/17 11/03/17 11/04/17 11/05/17 23:59 23:59 23:59 23:59 Intake Total 067 248 0580.25 1502.5 Balance 894 823 5119.25 1502.5 - Objective General Appearance: positive: No acute distress, Alert. negative: Lethargic Eyes Bilateral: positive: Normal inspection, PERRL, No lid inflammation, Conjunctivae nml ENT: positive: ENT inspection nml, Pharynx nml, No signs of dehydration. negative: Purulent nasal drainage, Pharyngeal erythema, Oral lesions Neck: positive: Nml inspection, Thyroid nml, No JVD, Trachea midline. negative : Thyromegaly, Lymphadenopathy (R), Lymphadenopathy (L), Stiff neck, Swelling/ bruising, Tracheal deviation Respiratory: positive: Chest non-tender, No respiratory distress, Other ( reduced lung sound bilaterally). negative: Wheezes, Rales, Rhonchi Cardiovascular: positive: Regular rate & rhythm, No murmur, No gallop. negative : Irregularly irregular, Extrasystoles, Tachycardia, Bradycardia, Systolic murmur, Diastolic murmur Peripheral Pulses: 2+ Radial (R), 2+ Radial (L), 2+ Dorsalis pedis (R), 2+ Dorsalis pedis (L) Abdomen: positive: Non-tender, No organomegaly, Nml bowel sounds, No distention. negative: Tenderness, Guarding, Rebound Back: positive: Nml inspection. negative: CVA tenderness (R), CVA tenderness (L ) Skin: positive: Color nml, No rash, Warm, Dry. negative: Cyanosis, Diaphoresis , Pallor Extremities: positive: Non-tender, Full ROM, Nml appearance. negative: Calf tenderness, Joint swelling, Favian's sign/cords Neurologic/Psychiatric: positive: Sensation nml. negative: Sensory loss, Facial droop, Slurred/abnml speech, Depressed mood/affect - Lab Results Fish Bones: 11/05/17 04:48 11/05/17 04:48 Other Labs: Lab Results x24hrs 11/05/17 11/05/17 Range/Units 04:48 04:48 WBC 11.9 H (4.8-10.8) x10^3/uL RBC 4.55 (4.20-5.40) 10^6/uL Hgb 12.1 (12.0-16.0) g/dL Hct 39.1 (37.0-47.0) % MCV 86.0 (81.0-99.0) fL MCH 26.6 L (27.0-31.0) pg MCHC 30.9 L (32.0-36.0) g/dL RDW 18.8 H (12.0-15.0) % Plt Count 488 H (130-450) 10^3/uL MPV 8.2 (7.9-10.8) fL Neut # 8.6 H (1.5-6.6) 10^3/uL Lymph # 1.8 (1.5-3.5) 10^3/uL [place] # 1.1 H (0.0-1.0) 10^3/uL Eos # 0.1 (0.0-0.7) 10^3/uL Baso # 0.2 H (0.0-0.1) 10^3/uL Absolute Nucleated RBC 0.00 x10^3/uL Nucleated RBC % 0.0 /100WBC Sodium 140 (135-145) mmol/L Potassium 4.5 (3.5-5.0) mmol/L Chloride 107 (101-111) mmol/L Carbon Dioxide 17 L (21-32) mmol/L Anion Gap 16.0 H (6-13) BUN 23 H (6-20) mg/dL Creatinine 1.2 H (0.4-1.0) mg/dL Estimated GFR (MDRD) 43 L (>89) Glucose 99 (70-100) mg/dL Calcium 10.3 (8.5-10.3) mg/dL Total Bilirubin 1.3 H (0.2-1.0) mg/dL AST 119 H (10-42) IU/L ALT 55 (10-60) IU/L Alkaline Phosphatase 725 H (42-121) IU/L Total Protein 6.5 L (6.7-8.2) g/dL Albumin 2.7 L (3.2-5.5) g/dL Globulin 3.8 (2.1-4.2) g/dL Albumin/Globulin Ratio 0.7 L (1.0-2.2) ABX Reporting Has patient been on IV antibiotics over the past 48 hours?: Yes Assessment/Plan - Problem List (1) Breast mass Impression: Impression: follow up surgeon's recommendation, pt was consulted with palliative care as well. pt is likely scheduled to have Mastectomy by surgeon on 11/12/17 for one palliative measure. remain unchanged neuro check continue support pt turn on her baseline, can talk logically neuro check continue support pt's MRI and CT of head was unremarkable it seems pt is on her baseline now, no acute delirium. neuro check continue support (2) Pneumonia ordered CXR pt has elevated WBC, some cough but no fever or chill, CXR reveals right lower lobe lung pneumonia order Cefepim blood culture Lactic acid continue lab and vital monitor (3) Tachycardia Impression: resolved, stable, now continue tele and vital monitor continue Metoprolol The patient continues to have elevated heart rates and per chart review; rates between 70-100. No telemetry is indicated in this setting. Plan: Metoprolol 25 BID was increased to 50mg BID and we will continue to monitor vital signs. (4) Breast mass Impression: biopsy result is pending pt and her request to have biopsy, pt was consulted by palliative. To release pt and her family's anxiety, more comfortable care to pt, plus pt and her request to have biopsy, surgeon did biopsy for pt pt and her ask to have biopsy call Dr. Zee and NPO after midnight The patient has an open ulcerated right breast mass with a possible dislocated rib. The patient has a history of a left breast mastectomy. The patient's is in agreement with no further treatment, but would like a "biopsy" of the tissue as he wants to know if it is cancer. Plan: Monitor and treat for pain and consider a general surgery consult to perform a biopsy. (5) Fall Impression: continue fall precaution continue support The patient's most recent fall was ~2 weeks ago, according to her . It was determined that she will need 24 hour care in a facility. Plan: Continue fall precautions. (6) Congestive heart failure Impression: ECHO reveals pt had 45-50% EF, mild to moderate impaired. Discuss the result with family. continue beta blockers Monitor fluid balance using I/O and weights continue fluid balance with I/O, and weight continue support The patient has a known history of this, and confirmation upon chart review with Flora. The patient was too agitated to allow an echocardiogram on this admit, so this is on hold. We are using beta blockers and clonidine for now until results of echo are back. Lungs sounds indicate mild fluid overload. Plan: Monitor fluid balance using I/O and weights. (7) Hypertension Impression: elevated blood pressure and HR. increase dosage of metoprolol to 50mg bid continue vital monitor stable, continue vital monitor The patient's blood pressure is only mildly improved, but the patient has been agitated that is worse than yesterday. Diastolic blood pressures have been the most concerning between 80-110. She was started on metoprolol 50mg BID and Clonidine was added. Plan: Continue to monitor vital signs. (8) Multi-infarct dementia Impression: stable, continue support. The patient was found to have several areas of PRIOR infarct as per imaging that was completed on admission. She continues to be combative, restraints and now has Zyprexa scheduled. I spent at least 30 minutes [id number] with the patient and her , Jeremiah regarding the next step in her plan of care. Due to her debilitated state, her agreed that bringing her home is no longer a good option. Plan: Continue support, and discharge is pending on placement. (9) elevated liver enzyme US reveals multiple complex heterogeneous lobular masses within liver, the finding are suspicious for metastatic disease. I discussed the result with pt and her . Pt and her request biopsy of the breast. surgeon did. the pathology result is pending now pt and her request 24 hours home caregiver, social insurance analyst arrange today after to assess pt plan to d/c to home tomorrow, with 24 hours caregiver, followed with palliative and hospice care. plan to d/c tonight or tomorrow. (10) right ede pain pt report right ede pain order CT of abdomen, will follow up pain control (3) Altered mental status Qualifiers: Altered mental status type: unspecified Qualified Code(s): R41.82 - Altered mental status, unspecified
[2017-11-05 15:46] LABS: BILIRUBIN,URINE NEGATIVE (NEGATIVE); GLUCOSE, URINE (UA) NEGATIVE (NEGATIVE); KETONES,URINE (UA) NEGATIVE (NEGATIVE); LEUKOCYTE ESTERASE, URINE NEGATIVE (NEGATIVE); NITRITE,URINE NEGATIVE (NEGATIVE); OCCULT BLOOD,URINE NEGATIVE (NEGATIVE); PH,URINE 5.5 PH (5.0-7.5); PROTEIN,URINE NEGATIVE (NEGATIVE); UROBILINOGEN,URINE 0.2 (NORMAL) E.U./dL (NORMAL)
[2017-11-05 15:47] LABS: CLARITY,URINE CLEAR (CLEAR)
--- NOTE | 2017-11-05 15:48 | CT Report ---
CT OF THE ABDOMEN AND PELVIS WITHOUT CONTRAST: 11/05/2017 CLINICAL INDICATION: Right flank pain. TECHNIQUE: CT abdomen and pelvis performed with oral and intravenous contrast. Axial CT images of the abdomen and pelvis were obtained without oral or intravenous contrast. COMPARISON: No previous CT is available. FINDINGS: Limited evaluation of the lung bases demonstrates a right lower lobe infiltrate and small bilateral pleural effusions. Also noted is a 6 cm right breast mass. ABDOMEN: There are innumerable hypodense lesions throughout the liver, compatible with metastatic disease. Trace ascites is present. Allowing for the lack of intravenous contrast enhancement, the spleen, pancreas, kidneys and adrenal glands appear unremarkable. The gallbladder is not dilated. No bowel dilatation, free gas or abdominal adenopathy is seen. Pelvis: Postoperative changes of hysterectomy are present. Trace ascites is present. No pelvic adenopathy is seen. Osseous structures demonstrate degenerative changes and likely osseous metastatic disease in the L3 vertebral body. IMPRESSION: 1. HEPATIC METASTATIC DISEASE. NO EVIDENCE OF HYDRONEPHROSIS OR NEPHROLITHIASIS. 2. 6 CM RIGHT BREAST MASS, COMPATIBLE WITH THE PRIMARY LESION. CT DOSE REDUCTION STATEMENT In accordance with CT protocol optimization, one or more of the following dose reduction techniques were utilized for this exam: automated exposure control, adjustment of mA and/or KV based on patient size, or use of iterative reconstructive technique. TD: 11/05/2017 12:43 MTDD
[2017-11-05 16:17] LABS: RBC,URINE 0-5 /HPF (0-5); SQUAMOUS EPITHELIAL CELL,UR MOD Squamous (<= Few)
[2017-11-05 16:18] LABS: BACTERIA,URINE None Seen /HPF (None Seen)
[2017-11-05] MEDS: OLANZapine ODT 5 MG TABLET TL SCH (16:23)
[2017-11-06] MEDS: HYDROcod/ACETAM 5/325 MG TABLET PO PRN (00:51)
[2017-11-06] MEDS: HALOPERIDOL 5 MG/ML VIAL IVP PRN ×2 (02:05→14:00)
[2017-11-06] MEDS: SODIUM CHLORIDE FLUSH 0.9% 10 ML SYRINGE IVP PRN ×5 (02:06→22:02)
[2017-11-06] MEDS ORDERED: HALOPERIDOL 5 MG/ML VIAL IM STA (02:28)
[2017-11-06] MEDS ORDERED: LORazepam 2 MG/ML VIAL IVP STA (02:29)
[2017-11-06] MEDS: CEFEPIME 1 GM in SODIUM CHLORIDE 0.9% MINIBAG 100 ML IV SCH ×3 (04:01→20:13)
[2017-11-06 05:39] LABS: BASOPHILS # (AUTO) 0.1 10^3/uL (0.0-0.1); EOSINOPHILS # (AUTO) 0.1 10^3/uL (0.0-0.7); EOSINOPHILS % (AUTO) 1.5 %; HGB - HEMOGLOBIN 10.5 g/dL (12.0-16.0); LYMPHOCYTES % (AUTO) 13.5 %; MEAN CORPUSCULAR HGB CONC 30.8 g/dL (32.0-36.0); MEAN CORPUSCULAR VOLUME 87.6 fL (81.0-99.0); MEAN PLATELET VOLUME 8.1 fL (7.9-10.8); MONOCYTES # (AUTO) 0.6 10^3/uL (0.0-1.0); MONOCYTES % (AUTO) 7.8 %; NEUTROPHILS # (AUTO) 5.7 10^3/uL (1.5-6.6); NEUTROPHILS % (AUTO) 76.2 %; PLT - PLATELET COUNT 352 10^3/uL (130-450); RED BLOOD COUNT 3.89 10^6/uL (4.20-5.40); RED CELL DISTRIBUTION WIDTH 18.7 % (12.0-15.0); WHITE BLOOD COUNT 7.5 x10^3/uL (4.8-10.8)
[2017-11-06 05:47] LABS: ALBUMIN 2.3 g/dL (3.2-5.5); ALBUMIN/GLOBULIN RATIO 0.7 (1.0-2.2); BILIRUBIN,TOTAL 0.9 mg/dL (0.2-1.0); CALCIUM 10.1 mg/dL (8.5-10.3); CREATININE 1.3 mg/dL (0.4-1.0); TOTAL PROTEIN 5.6 g/dL (6.7-8.2)
[2017-11-06] MEDS: METOPROLOL TARTRATE 25 MG TABLET PO SCH ×2 (08:48→20:30)
[2017-11-06] MEDS: COLCHICINE 0.6 MG TABLET PO SCH (08:49)
[2017-11-06] MEDS: cloNIDine 0.1 MG TABLET PO SCH ×2 (08:49→20:31)
[2017-11-06] MEDS: MULTIVITAMIN TABLET PO SCH (08:49)
[2017-11-06] MEDS: CHOLECALCIFEROL 1,000 UNIT TABLET PO SCH (08:49)
[2017-11-06] MEDS: ALLOPURINOL 100 MG TABLET PO SCH (08:49)
[2017-11-06] MEDS: LACTOBACILLUS RHAMNOSUS GG CAPSULE PO SCH (08:49)
[2017-11-06] MEDS: DOCUSATE SODIUM 250 MG CAPSULE PO SCH (08:53)
[2017-11-06] MEDS: PSYLLIUM PACKET PO SCH (08:53)
[2017-11-06] MEDS: SENNA 8.6 MG TABLET PO SCH (08:54)
[2017-11-06] MEDS: SODIUM CHLORIDE FLUSH 0.9% 10 ML SYRINGE IVP SCH ×2 (08:54→17:56)
[2017-11-06] MEDS: POLYETHYLENE GLYCOL 3350 17 GM PACKET PO SCH (08:54)
[2017-11-06] MEDS: HEPARIN 5,000 UNIT/ML VIAL SUBQ SCH ×2 (09:07→20:47)
--- NOTE | 2017-11-06 11:55 | PROVIDER PROGRESS NOTE ---
Subjective - Prog Note Date Prog Note Date: 11/06/17 - Subjective Pt reports feeling: Improved Subjective: pt state her cough is better. No fever, chill and SOB, and CP. Current Medications - Current Medications Current Medications: Active Medications Acetaminophen (Tylenol) 650 mg PO Q4HR PRN PRN Reason: Pain or Fever > 38C (100.4F) Last Admin: 10/30/17 19:30 Dose: 650 mg Acetaminophen/Hydrocodone Bitart (Guin 5/325) 1 tab PO Q4HR PRN PRN Reason: PAIN Last Admin: 11/06/17 00:51 Dose: 1 tab Allopurinol (Zyloprim) 200 mg PO DAILY [facility] Last Admin: 11/06/17 08:49 Dose: 200 mg Cholecalciferol (Vitamin D3) 1,000 unit PO DAILY [facility] Last Admin: 11/06/17 08:49 Dose: 1,000 unit Clonidine HCl (Catapres) 0.1 mg PO BID [facility] Last Admin: 11/06/17 08:49 Dose: 0.1 mg Colchicine (Colcrys) 0.6 mg PO QOD [facility] Last Admin: 11/06/17 08:49 Dose: 0.6 mg Cyclobenzaprine HCl (Flexeril) 10 mg PO TID PRN PRN Reason: Spasms Docusate Sodium (Colace 250mg Capsule) 250 - 500 mg PO DAILY [facility] Last Admin: 11/06/17 08:53 Dose: Not Given Haloperidol (Haldol Inj) 0.5 mg IVP Q1HR PRN PRN Reason: PAIN Last Admin: 11/06/17 02:05 Dose: 0.5 mg Heparin Sodium (Porcine) () 2,500 unit SUBQ BID [facility] Last Admin: 11/06/17 09:07 Dose: 2,500 unit Hydralazine HCl (Apresoline Inj) 10 mg IVP TID PRN PRN Reason: Hypertensive Emergency Last Admin: 11/05/17 00:37 Dose: 10 mg Cefepime HCl 1 gm/ Sodium (Chloride) 100 mls @ 200 mls/hr IV Q8H [facility] Last Admin: 11/06/17 11:43 Dose: 200 mls/hr Lactobacillus Rhamnosus (Culturelle) 1 cap PO DAILY [facility] Last Admin: 11/06/17 08:49 Dose: 1 cap Metoprolol Tartrate (Lopressor) 50 mg PO BID [facility] Last Admin: 11/06/17 08:48 Dose: 50 mg Morphine Sulfate (Morphine) 2 mg IVP Q2H PRN PRN Reason: PAIN Last Admin: 11/05/17 14:09 Dose: 2 mg Multi-Ingredient Ointment (Zinc Oxide) 1 applic TOP PRN PRN PRN Reason: Skin Care Multivitamins (Theragran) 1 tab PO DAILY [facility] Last Admin: 11/06/17 08:49 Dose: 1 tab Olanzapine (Zyprexa Odt) 5 mg TL 1600 [facility] Last Admin: 11/05/17 16:23 Dose: 5 mg Polyethylene Glycol (Miralax) 17 gm PO DAILY [facility] Last Admin: 11/06/17 08:54 Dose: Not Given Psyllium Hydrophilic Mucilloid (Metamucil) 1 packet PO DAILY [facility] Last Admin: 11/06/17 08:53 Dose: 1 packet Senna (Senokot) 8.6 - 17.2 mg PO DAILY [facility] Last Admin: 11/06/17 08:54 Dose: Not Given Sodium Chloride (Normal Saline Flush 0.9%) 10 ml IVP PRN PRN PRN Reason: NEEDED PER PROVIDER ORDERS Last Admin: 11/06/17 11:43 Dose: 10 ml Sodium Chloride (Normal Saline Flush 0.9%) 10 ml IVP 0100,0900,1700 [facility] Last Admin: 11/06/17 08:54 Dose: 10 ml Lactobacillus Acidophilus [Probiotic Acidophilus] 1 tab PO DAILY 12/14/16 Allopurinol [Allopurinol] 200 mg PO DAILY 10/29/17 Cholecalciferol (Vitamin D3) [Vitajoy Daily D] 1,000 unit PO DAILY 10/29/17 Colchicine [Colchicine] 0.6 mg PO .EVERY OTHER DAY 10/29/17 Cyclobenzaprine HCl 10 mg PO TID PRN 10/29/17 Lisinopril [Lisinopril] 40 mg PO DAILY 10/29/17 Multivitamin [Theragran] 1 each PO DAILY 10/29/17 Objective - Vital Signs/Intake & Output Reviewed Vital Signs: Yes Vital Signs: Vital Signs x48h Temp Pulse Resp BP BP Pulse Ox 11/06/17 09:33 36.9 C 91 20 148/78 H 93 11/06/17 08:48 194/88 H 11/06/17 07:34 36.2 C L 92 19 194/88 H 93 11/06/17 06:14 71 18 138/64 H 94 Intake & Output: Intake & Output 11/03/17 11/04/17 11/05/17 11/06/17 23:59 23:59 23:59 23:59 Intake Total 850 2676.25 2352.5 450 Output Total 450 Balance 850 2676.25 1902.5 450 - Objective General Appearance: positive: No acute distress, Alert. negative: Lethargic Eyes Bilateral: positive: Normal inspection, PERRL, No lid inflammation, Conjunctivae nml ENT: positive: ENT inspection nml, Pharynx nml, No signs of dehydration. negative: Purulent nasal drainage, Pharyngeal erythema, Oral lesions Neck: positive: Nml inspection, Thyroid nml, No JVD, Trachea midline. negative : Thyromegaly, Stiff neck, Swelling/bruising, Tracheal deviation Respiratory: positive: Chest non-tender, No respiratory distress, Other ( reduced lung sound bilaterally). negative: Wheezes, Rales Cardiovascular: positive: Regular rate & rhythm, No murmur, No gallop. negative : Irregularly irregular, Extrasystoles, Tachycardia, Bradycardia, Systolic murmur, Diastolic murmur Peripheral Pulses: 2+ Radial (R), 2+ Radial (L), 2+ Dorsalis pedis (R), 2+ Dorsalis pedis (L) Abdomen: positive: Non-tender, No organomegaly, Nml bowel sounds, No distention. negative: Tenderness, Guarding, Rebound Back: positive: Nml inspection. negative: CVA tenderness (R), CVA tenderness (L ) Skin: positive: Color nml, No rash, Warm, Dry. negative: Cyanosis, Diaphoresis , Pallor Extremities: positive: Non-tender, Full ROM, Nml appearance. negative: Calf tenderness, Joint swelling, Favian's sign/cords Neurologic/Psychiatric: positive: Sensation nml. negative: Sensory loss, Facial droop, Slurred/abnml speech, Depressed mood/affect - Lab Results Fish Bones: 11/06/17 05:10 11/06/17 05:10 Other Labs: Lab Results x24hrs 11/06/17 11/06/17 11/05/17 Range/Units 05:10 05:10 15:15 WBC 7.5 (4.8-10.8) x10^3/uL RBC 3.89 L (4.20-5.40) 10^6/uL Hgb 10.5 L (12.0-16.0) g/dL Hct 34.0 L (37.0-47.0) % MCV 87.6 (81.0-99.0) fL MCH 27.0 (27.0-31.0) pg MCHC 30.8 L (32.0-36.0) g/dL RDW 18.7 H (12.0-15.0) % Plt Count 352 (130-450) 10^3/uL MPV 8.1 (7.9-10.8) fL Neut # 5.7 (1.5-6.6) 10^3/uL Lymph # 1.0 L (1.5-3.5) 10^3/uL Nolan # 0.6 (0.0-1.0) 10^3/uL Eos # 0.1 (0.0-0.7) 10^3/uL Baso # 0.1 (0.0-0.1) 10^3/uL Absolute Nucleated RBC 0.01 x10^3/uL Nucleated RBC % 0.1 /100WBC Sodium 139 Potassium 4.4 Chloride 110 Carbon Dioxide 21 Anion Gap 8.0 BUN 25 H Creatinine 1.3 H Estimated GFR (MDRD) 39 L Glucose 100 Lactic Acid (0.5-2.2) mmol/L Calcium 10.1 Total Bilirubin 0.9 AST 92 H ALT 42 Alkaline Phosphatase 655 H Total Protein 5.6 L Albumin 2.3 L Globulin 3.3 Albumin/Globulin Ratio 0.7 L Triglycerides Cholesterol LDL Cholesterol, Calc VLDL Cholesterol HDL Cholesterol LDL/HDL Ratio Cholesterol/HDL Ratio Urine Color YELLOW Urine Clarity CLEAR (CLEAR) Urine pH 5.5 (5.0-7.5) PH Ur Specific [place] 1.025 (1.002-1.030) Urine Protein NEGATIVE (NEGATIVE) mg/dL Urine Glucose (UA) NEGATIVE (NEGATIVE) mg/dL Urine Ketones NEGATIVE (NEGATIVE) mg/dL Urine Occult Blood NEGATIVE (NEGATIVE) Urine Nitrite NEGATIVE (NEGATIVE) Urine Bilirubin NEGATIVE (NEGATIVE) Urine Urobilinogen 0.2 (NORMAL) (NORMAL) E.U./dL Ur Leukocyte Esterase NEGATIVE (NEGATIVE) Urine RBC 0-5 (0-5) /HPF Urine WBC 0-3 (0-5) /HPF Ur Squamous Epith Cells MOD Squamous H (<= Few) Urine Bacteria None Seen (None Seen) /HPF Urine Culture Comments NOT INDICATED 11/05/17 11/05/17 Range/Units 14:59 08:47 WBC (4.8-10.8) x10^3/uL RBC (4.20-5.40) 10^6/uL Hgb (12.0-16.0) g/dL Hct (37.0-47.0) % MCV (81.0-99.0) fL MCH (27.0-31.0) pg MCHC (32.0-36.0) g/dL RDW (12.0-15.0) % Plt Count (130-450) 10^3/uL MPV (7.9-10.8) fL Neut # (1.5-6.6) 10^3/uL Lymph # (1.5-3.5) 10^3/uL Nolan # (0.0-1.0) 10^3/uL Eos # (0.0-0.7) 10^3/uL Baso # (0.0-0.1) 10^3/uL Absolute Nucleated RBC x10^3/uL Nucleated RBC % /100WBC Sodium Cancelled Potassium Cancelled Chloride Cancelled Carbon Dioxide Cancelled Anion Gap Cancelled BUN Cancelled Creatinine Cancelled Estimated GFR (MDRD) Cancelled Glucose Cancelled Lactic Acid 1.2 (0.5-2.2) mmol/L Calcium Cancelled Total Bilirubin Cancelled AST Cancelled ALT Cancelled Alkaline Phosphatase Cancelled Total Protein Cancelled Albumin Cancelled Globulin Cancelled Albumin/Globulin Ratio Cancelled Triglycerides Cancelled Cholesterol Cancelled LDL Cholesterol, Calc Cancelled VLDL Cholesterol Cancelled HDL Cholesterol Cancelled LDL/HDL Ratio Cancelled Cholesterol/HDL Ratio Cancelled Urine Color Urine Clarity (CLEAR) Urine pH (5.0-7.5) PH Ur Specific [place] (1.002-1.030) Urine Protein (NEGATIVE) mg/dL Urine Glucose (UA) (NEGATIVE) mg/dL Urine Ketones (NEGATIVE) mg/dL Urine Occult Blood (NEGATIVE) Urine Nitrite (NEGATIVE) Urine Bilirubin (NEGATIVE) Urine Urobilinogen (NORMAL) E.U./dL Ur Leukocyte Esterase (NEGATIVE) Urine RBC (0-5) /HPF Urine WBC (0-5) /HPF Ur Squamous Epith Cells (<= Few) Urine Bacteria (None Seen) /HPF Urine Culture Comments ABX Reporting Has patient been on IV antibiotics over the past 48 hours?: Yes Assessment/Plan - Problem List (1) Breast mass Impression: Impression: It seems Dr. Amarjit Zee arrange pt for Mastectomy on 11/12/17 for one palliative measures, discuss with pt and her for this follow up surgeon's recommendation, pt was consulted with palliative care as well. pt is likely scheduled to have Mastectomy by surgeon on 11/12/17 for one palliative measure. remain unchanged neuro check continue support pt turn on her baseline, can talk logically neuro check continue support pt's MRI and CT of head was unremarkable it seems pt is on her baseline now, no acute delirium. neuro check continue support (2) Pneumonia second day after treatment of pneumonia. Pt's WBC is down to normal arrange. pt' s cough is better controlled. It seems pt's response to treatment is well. continue treatment today, plan D/C tomorrow continue lab, vital to pt ordered CXR pt has elevated WBC, some cough but no fever or chill, CXR reveals right lower lobe lung pneumonia order Cefepim blood culture Lactic acid continue lab and vital monitor (3) Tachycardia Impression: resolved, stable, now continue tele and vital monitor continue Metoprolol The patient continues to have elevated heart rates and per chart review; rates between 70-100. No telemetry is indicated in this setting. Plan: Metoprolol 25 BID was increased to 50mg BID and we will continue to monitor vital signs. (4) Breast mass Impression: I discuss with The pathological report to pt and her , answer their questions continue support biopsy result is pending pt and her request to have biopsy, pt was consulted by palliative. To release pt and her family's anxiety, more comfortable care to pt, plus pt and her request to have biopsy, surgeon did biopsy for pt pt and her ask to have biopsy call Dr. Zee and NPO after midnight The patient has an open ulcerated right breast mass with a possible dislocated rib. The patient has a history of a left breast mastectomy. The patient's is in agreement with no further treatment, but would like a "biopsy" of the tissue as he wants to know if it is cancer. Plan: Monitor and treat for pain and consider a general surgery consult to perform a biopsy. (5) Fall Impression: continue fall precaution continue support The patient's most recent fall was ~2 weeks ago, according to her . It was determined that she will need 24 hour care in a facility. Plan: Continue fall precautions. (6) Congestive heart failure Impression: discuss ECHO result with pt and her . continue to have beta-deshawn ECHO reveals pt had 45-50% EF, mild to moderate impaired. Discuss the result with family. continue beta blockers Monitor fluid balance using I/O and weights continue fluid balance with I/O, and weight continue support The patient has a known history of this, and confirmation upon chart review with [facility]. The patient was too agitated to allow an echocardiogram on this admit, so this is on hold. We are using beta blockers and clonidine for now until results of echo are back. Lungs sounds indicate mild fluid overload. Plan: Monitor fluid balance using I/O and weights. (7) Hypertension Impression: continue treatment with BP meds continue vital monitor elevated blood pressure and HR. increase dosage of metoprolol to 50mg bid continue vital monitor stable, continue vital monitor The patient's blood pressure is only mildly improved, but the patient has been agitated that is worse than yesterday. Diastolic blood pressures have been the most concerning between 80-110. She was started on metoprolol 50mg BID and Clonidine was added. Plan: Continue to monitor vital signs. (8) Multi-infarct dementia Impression: stable, continue support. The patient was found to have several areas of PRIOR infarct as per imaging that was completed on admission. She continues to be combative, restraints and now has Zyprexa scheduled. I spent at least 30 minutes [id number] with the patient and her , Jeremiah regarding the next step in her plan of care. Due to her debilitated state, her agreed that bringing her home is no longer a good option. Plan: Continue support, and discharge is pending on placement. (9) elevated liver enzyme US reveals multiple complex heterogeneous lobular masses within liver, the finding are suspicious for metastatic disease. I discussed the result with pt and her . Pt and her request biopsy of the breast. surgeon did. the pathology result is pending now pt and her request 24 hours home caregiver, psych social worker arrange today after to assess pt plan to d/c to home tomorrow, with 24 hours caregiver, followed with palliative and hospice care. plan to d/c tonight or tomorrow. (10) right ede pain beside of liver findings, no other significant findings. discuss the result with pt and her continue pain control pt report right ede pain order CT of abdomen, will follow up pain control (3) Altered mental status Qualifiers: Altered mental status type: unspecified Qualified Code(s): R41.82 - Altered mental status, unspecified
[2017-11-06] MEDS: LORazepam 2 MG/ML VIAL IVP PRN ×2 (15:01→17:56)
[2017-11-06] MEDS: OLANZapine ODT 5 MG TABLET TL SCH (15:50)
[2017-11-06] MEDS: hydrALAZINE INJ 20 MG/ML VIAL IVP PRN (22:05)
[2017-11-07] MEDS: SODIUM CHLORIDE FLUSH 0.9% 10 ML SYRINGE IVP SCH ×4 (00:21→23:56)
[2017-11-07] MEDS: LORazepam 2 MG/ML VIAL IVP PRN (00:21)
[2017-11-07] MEDS: CEFEPIME 1 GM in SODIUM CHLORIDE 0.9% MINIBAG 100 ML IV SCH ×3 (04:27→19:45)
[2017-11-07 06:19] LABS: BASOPHILS # (AUTO) 0.1 10^3/uL (0.0-0.1); EOSINOPHILS # (AUTO) 0.3 10^3/uL (0.0-0.7); EOSINOPHILS % (AUTO) 2.8 %; HGB - HEMOGLOBIN 11.9 g/dL (12.0-16.0); LYMPHOCYTES # (AUTO) 1.2 10^3/uL (1.5-3.5); MEAN CORPUSCULAR HEMOGLOBIN 27.4 pg (27.0-31.0); MEAN CORPUSCULAR HGB CONC 32.5 g/dL (32.0-36.0); MEAN CORPUSCULAR VOLUME 84.3 fL (81.0-99.0); MEAN PLATELET VOLUME 8.2 fL (7.9-10.8); MONOCYTES # (AUTO) 0.7 10^3/uL (0.0-1.0); MONOCYTES % (AUTO) 7.8 %; NEUTROPHILS # (AUTO) 7.1 10^3/uL (1.5-6.6); NEUTROPHILS % (AUTO) 75.4 %; PLT - PLATELET COUNT 398 10^3/uL (130-450); RED BLOOD COUNT 4.33 10^6/uL (4.20-5.40); WHITE BLOOD COUNT 9.5 x10^3/uL (4.8-10.8)
[2017-11-07 06:31] LABS: ALBUMIN 2.4 g/dL (3.2-5.5); ALBUMIN/GLOBULIN RATIO 0.6 (1.0-2.2); BILIRUBIN,TOTAL 0.9 mg/dL (0.2-1.0); CALCIUM 10.4 mg/dL (8.5-10.3); CREATININE 1.2 mg/dL (0.4-1.0); TOTAL PROTEIN 6.1 g/dL (6.7-8.2)
[2017-11-07] MEDS: cloNIDine 0.1 MG TABLET PO SCH ×2 (10:19→20:45)
[2017-11-07] MEDS: HEPARIN 5,000 UNIT/ML VIAL SUBQ SCH ×2 (10:19→20:35)
[2017-11-07] MEDS: METOPROLOL TARTRATE 25 MG TABLET PO SCH ×2 (10:19→20:38)
--- NOTE | 2017-11-07 13:03 | PROVIDER PROGRESS NOTE ---
Subjective - Prog Note Date Prog Note Date: 11/07/17 - Subjective Pt reports feeling: No change Subjective: pt is comfortable sleeping at bed. hemodynamic stable now. plan to d/c to [facility] to tomorrow per PT evaluation. [facility] accepted pt as well. pt's state he and her caregiver are difficult to take care of pt. Current Medications - Current Medications Current Medications: Active Medications Acetaminophen (Tylenol) 650 mg PO Q4HR PRN PRN Reason: Pain or Fever > 38C (100.4F) Last Admin: 10/30/17 19:30 Dose: 650 mg Acetaminophen/Hydrocodone Bitart ([place] 5/325) 1 tab PO Q4HR PRN PRN Reason: PAIN Last Admin: 11/06/17 00:51 Dose: 1 tab Allopurinol (Zyloprim) 200 mg PO DAILY [facility] Last Admin: 11/06/17 08:49 Dose: 200 mg Cholecalciferol (Vitamin D3) 1,000 unit PO DAILY [facility] Last Admin: 11/06/17 08:49 Dose: 1,000 unit Clonidine HCl (Catapres) 0.1 mg PO BID [facility] Last Admin: 11/07/17 10:19 Dose: 0.1 mg Colchicine (Colcrys) 0.6 mg PO QOD [facility] Last Admin: 11/06/17 08:49 Dose: 0.6 mg Cyclobenzaprine HCl (Flexeril) 10 mg PO TID PRN PRN Reason: Spasms Docusate Sodium (Colace 250mg Capsule) 250 - 500 mg PO DAILY [facility] Last Admin: 11/06/17 08:53 Dose: Not Given Haloperidol (Haldol Inj) 0.5 mg IVP Q1HR PRN PRN Reason: PAIN Last Admin: 11/06/17 14:00 Dose: 0.5 mg Heparin Sodium (Porcine) () 2,500 unit SUBQ BID [facility] Last Admin: 11/07/17 10:19 Dose: 2,500 unit Hydralazine HCl (Apresoline Inj) 10 mg IVP TID PRN PRN Reason: Hypertensive Emergency Last Admin: 11/06/17 22:05 Dose: 10 mg Cefepime HCl 1 gm/ Sodium (Chloride) 100 mls @ 200 mls/hr IV Q8H [facility] Last Infusion: 11/07/17 05:26 Dose: Infused Lactobacillus Rhamnosus (Culturelle) 1 cap PO DAILY [facility] Last Admin: 11/06/17 08:49 Dose: 1 cap Metoprolol Tartrate (Lopressor) 50 mg PO BID [facility] Last Admin: 11/07/17 10:19 Dose: 50 mg Morphine Sulfate (Morphine) 2 mg IVP Q2H PRN PRN Reason: PAIN Last Admin: 11/05/17 14:09 Dose: 2 mg Multi-Ingredient Ointment (Zinc Oxide) 1 applic TOP PRN PRN PRN Reason: Skin Care Multivitamins (Theragran) 1 tab PO DAILY [facility] Last Admin: 11/06/17 08:49 Dose: 1 tab Olanzapine (Zyprexa Odt) 5 mg TL 1600 [facility] Last Admin: 11/06/17 15:50 Dose: 5 mg Polyethylene Glycol (Miralax) 17 gm PO DAILY [facility] Last Admin: 11/06/17 08:54 Dose: Not Given Psyllium Hydrophilic Mucilloid (Metamucil) 1 packet PO DAILY [facility] Last Admin: 11/06/17 08:53 Dose: 1 packet Senna (Senokot) 8.6 - 17.2 mg PO DAILY [facility] Last Admin: 11/06/17 08:54 Dose: Not Given Sodium Chloride (Normal Saline Flush 0.9%) 10 ml IVP PRN PRN PRN Reason: NEEDED PER PROVIDER ORDERS Last Admin: 11/06/17 22:02 Dose: 10 ml Sodium Chloride (Normal Saline Flush 0.9%) 10 ml IVP 0100,0900,1700 [facility] Last Admin: 11/07/17 00:21 Dose: 10 ml Lactobacillus Acidophilus [Probiotic Acidophilus] 1 tab PO DAILY 12/14/16 Allopurinol [Allopurinol] 200 mg PO DAILY 10/29/17 Cholecalciferol (Vitamin D3) [Vitajoy Daily D] 1,000 unit PO DAILY 10/29/17 Colchicine [Colchicine] 0.6 mg PO .EVERY OTHER DAY 10/29/17 Cyclobenzaprine HCl 10 mg PO TID PRN 10/29/17 Lisinopril [Lisinopril] 40 mg PO DAILY 10/29/17 Multivitamin [Theragran] 1 each PO DAILY 10/29/17 Objective - Vital Signs/Intake & Output Reviewed Vital Signs: Yes Vital Signs: Vital Signs x48h Temp Pulse Resp BP BP BP Pulse Ox 11/07/17 11:54 72 141/83 H 11/07/17 08:39 36.4 C L 98 19 216/108 H 216/108 H 221/98 H 98 Intake & Output: Intake & Output 11/04/17 11/05/17 11/06/17 11/07/17 23:59 23:59 23:59 23:59 Intake Total 2676.25 2352.5 860 100 Output Total 450 200 Balance 2676.25 1902.5 860 -100 - Objective General Appearance: positive: No acute distress, Alert. negative: Lethargic Eyes Bilateral: positive: Normal inspection, PERRL, No lid inflammation, Conjunctivae nml ENT: positive: ENT inspection nml, Pharynx nml, No signs of dehydration. negative: Purulent nasal drainage, Pharyngeal erythema, Oral lesions Neck: positive: Nml inspection, Thyroid nml, No JVD, Trachea midline. negative : Thyromegaly, Lymphadenopathy (R), Lymphadenopathy (L), Stiff neck, Swelling/ bruising, Tracheal deviation Respiratory: positive: Chest non-tender, No respiratory distress, Breath sounds nml. negative: Wheezes, Rales, Rhonchi Cardiovascular: positive: Regular rate & rhythm, No murmur, No gallop. negative : Irregularly irregular, Extrasystoles, Tachycardia, Bradycardia, Systolic murmur, Diastolic murmur Peripheral Pulses: 2+ Radial (R), 2+ Radial (L), 2+ Dorsalis pedis (R), 2+ Dorsalis pedis (L) Abdomen: positive: Non-tender, No organomegaly, Nml bowel sounds, No distention. negative: Tenderness, Guarding, Rebound Back: positive: Nml inspection. negative: CVA tenderness (R), CVA tenderness (L ) Skin: positive: Color nml, No rash, Warm, Dry. negative: Cyanosis, Diaphoresis , Pallor Extremities: positive: Non-tender, Nml appearance. negative: Calf tenderness, Joint swelling, Favian's sign/cords Neurologic/Psychiatric: positive: Sensation nml. negative: Sensory loss, Facial droop, Slurred/abnml speech, Depressed mood/affect - Lab Results Fish Bones: 11/07/17 06:00 11/07/17 06:00 Other Labs: Lab Results x24hrs 11/07/17 11/07/17 Range/Units 06:00 06:00 WBC 9.5 (4.8-10.8) x10^3/uL RBC 4.33 (4.20-5.40) 10^6/uL Hgb 11.9 L (12.0-16.0) g/dL Hct 36.5 L (37.0-47.0) % MCV 84.3 (81.0-99.0) fL MCH 27.4 (27.0-31.0) pg MCHC 32.5 (32.0-36.0) g/dL RDW 18.0 H (12.0-15.0) % Plt Count 398 (130-450) 10^3/uL MPV 8.2 (7.9-10.8) fL Neut # 7.1 H (1.5-6.6) 10^3/uL Lymph # 1.2 L (1.5-3.5) 10^3/uL [place] # 0.7 (0.0-1.0) 10^3/uL Eos # 0.3 (0.0-0.7) 10^3/uL Baso # 0.1 (0.0-0.1) 10^3/uL Absolute Nucleated RBC 0.00 x10^3/uL Nucleated RBC % 0.0 /100WBC Sodium 139 (135-145) mmol/L Potassium 4.2 (3.5-5.0) mmol/L Chloride 108 (101-111) mmol/L Carbon Dioxide 20 L (21-32) mmol/L Anion Gap 11.0 (6-13) BUN 21 H (6-20) mg/dL Creatinine 1.2 H (0.4-1.0) mg/dL Estimated GFR (MDRD) 43 L (>89) Glucose 96 (70-100) mg/dL Calcium 10.4 H (8.5-10.3) mg/dL Total Bilirubin 0.9 (0.2-1.0) mg/dL AST 104 H (10-42) IU/L ALT 46 (10-60) IU/L Alkaline Phosphatase 706 H (42-121) IU/L Total Protein 6.1 L (6.7-8.2) g/dL Albumin 2.4 L (3.2-5.5) g/dL Globulin 3.7 (2.1-4.2) g/dL Albumin/Globulin Ratio 0.6 L (1.0-2.2) ABX Reporting Has patient been on IV antibiotics over the past 48 hours?: Yes Assessment/Plan - Problem List (1) Breast mass Impression: Impression: pt's told me today he does not think it is good idea to let his have Mastectomy. It seems Dr. Amarjit Zee arrange pt for Mastectomy on 11/12/17 for one palliative measures, discuss with pt and her for this I discuss The pathological report with pt and her , answer their questions I discuss with The pathological report to pt and her , answer their questions continue support biopsy result is pending pt and her request to have biopsy, pt was consulted by palliative. To release pt and her family's anxiety, more comfortable care to pt, plus pt and her request to have biopsy, surgeon did biopsy for pt pt and her ask to have biopsy call Dr. Zee and NPO after midnight The patient has an open ulcerated right breast mass with a possible dislocated rib. The patient has a history of a left breast mastectomy. The patient's is in agreement with no further treatment, but would like a "biopsy" of the tissue as he wants to know if it is cancer. Plan: Monitor and treat for pain and consider a general surgery consult to perform a biopsy. follow up surgeon's recommendation, pt was consulted with palliative care as well. pt is likely scheduled to have Mastectomy by surgeon on 11/12/17 for one palliative measure. remain unchanged neuro check continue support pt turn on her baseline, can talk logically neuro check continue support pt's MRI and CT of head was unremarkable it seems pt is on her baseline now, no acute delirium. neuro check continue support (2) Pneumonia continue treat pneumonia continue lab and vital monitor plan d/c tomorrow second day after treatment of pneumonia. Pt's WBC is down to normal arrange. pt' s cough is better controlled. It seems pt's response to treatment is well. continue treatment today, plan D/C tomorrow continue lab, vital to pt ordered CXR pt has elevated WBC, some cough but no fever or chill, CXR reveals right lower lobe lung pneumonia order Cefepim blood culture Lactic acid continue lab and vital monitor (3) Tachycardia Impression: resolved resolved, stable, now continue tele and vital monitor continue Metoprolol The patient continues to have elevated heart rates and per chart review; rates between 70-100. No telemetry is indicated in this setting. Plan: Metoprolol 25 BID was increased to 50mg BID and we will continue to monitor vital signs. (4) Fall Impression: continue fall precaution continue support The patient's most recent fall was ~2 weeks ago, according to her . It was determined that she will need 24 hour care in a facility. Plan: Continue fall precautions. (5) Congestive heart failure Impression: discuss ECHO result with pt and her . continue to have beta-deshawn ECHO reveals pt had 45-50% EF, mild to moderate impaired. Discuss the result with family. continue beta blockers Monitor fluid balance using I/O and weights continue fluid balance with I/O, and weight continue support The patient has a known history of this, and confirmation upon chart review with Flora. The patient was too agitated to allow an echocardiogram on this admit, so this is on hold. We are using beta blockers and clonidine for now until results of echo are back. Lungs sounds indicate mild fluid overload. Plan: Monitor fluid balance using I/O and weights. (6) Hypertension Impression: stable, now BP141/83 continue vital monitor continue treatment with BP meds continue vital monitor elevated blood pressure and HR. increase dosage of metoprolol to 50mg bid continue vital monitor stable, continue vital monitor The patient's blood pressure is only mildly improved, but the patient has been agitated that is worse than yesterday. Diastolic blood pressures have been the most concerning between 80-110. She was started on metoprolol 50mg BID and Clonidine was added. Plan: Continue to monitor vital signs. (7) Multi-infarct dementia Impression: stable, continue support. The patient was found to have several areas of PRIOR infarct as per imaging that was completed on admission. She continues to be combative, restraints and now has Zyprexa scheduled. I spent at least 30 minutes [id number] with the patient and her , Jeremiah regarding the next step in her plan of care. Due to her debilitated state, her agreed that bringing her home is no longer a good option. Plan: Continue support, and discharge is pending on placement. (8) elevated liver enzyme US reveals multiple complex heterogeneous lobular masses within liver, the finding are suspicious for metastatic disease. I discussed the result with pt and her . Pt and her request biopsy of the breast. surgeon did. the pathology result is pending now pt and her request 24 hours home caregiver, case management social worker arrange today after to assess pt plan to d/c to home tomorrow, with 24 hours caregiver, followed with palliative and hospice care. plan to d/c tonight or tomorrow. (3) Altered mental status Qualifiers: Altered mental status type: unspecified Qualified Code(s): R41.82 - Altered mental status, unspecified
[2017-11-07] MEDS: CHOLECALCIFEROL 1,000 UNIT TABLET PO SCH (13:12)
[2017-11-07] MEDS: DOCUSATE SODIUM 250 MG CAPSULE PO SCH (13:12)
[2017-11-07] MEDS: ALLOPURINOL 100 MG TABLET PO SCH (13:12)
[2017-11-07] MEDS: PSYLLIUM PACKET PO SCH (13:13)
[2017-11-07] MEDS: MULTIVITAMIN TABLET PO SCH (13:13)
[2017-11-07] MEDS: POLYETHYLENE GLYCOL 3350 17 GM PACKET PO SCH (13:13)
[2017-11-07] MEDS: LACTOBACILLUS RHAMNOSUS GG CAPSULE PO SCH (13:13)
[2017-11-07] MEDS: SENNA 8.6 MG TABLET PO SCH (13:13)
[2017-11-07] MEDS: MORPHINE 2 MG/ML SYRINGE IVP PRN (16:30)
[2017-11-07] MEDS: OLANZapine ODT 5 MG TABLET TL SCH (16:35)
[2017-11-07] MEDS: hydrALAZINE INJ 20 MG/ML VIAL IVP PRN (16:37)
[2017-11-07] MEDS: HALOPERIDOL 5 MG/ML VIAL IVP PRN (17:51)
[2017-11-07] MEDS: SODIUM CHLORIDE FLUSH 0.9% 10 ML SYRINGE IVP PRN (20:47)
[2017-11-07] MEDS: HYDROcod/ACETAM 5/325 MG TABLET PO PRN (23:59)
[2017-11-08] MEDS: CEFEPIME 1 GM in SODIUM CHLORIDE 0.9% MINIBAG 100 ML IV SCH ×2 (04:18→11:43)
[2017-11-08] MEDS: SODIUM CHLORIDE FLUSH 0.9% 10 ML SYRINGE IVP PRN ×2 (04:19→05:01)
[2017-11-08 05:40] LABS: BASOPHILS # (AUTO) 0.1 10^3/uL (0.0-0.1); LYMPHOCYTES # (AUTO) 1.1 10^3/uL (1.5-3.5); NEUTROPHILS # (AUTO) 6.8 10^3/uL (1.5-6.6)
[2017-11-08 05:45] LABS: BASOPHILS % (AUTO) 1.4 %; EOSINOPHILS # (AUTO) 0.1 10^3/uL (0.0-0.7); EOSINOPHILS % (AUTO) 1.6 %; HGB - HEMOGLOBIN 11.1 g/dL (12.0-16.0); LYMPHOCYTES % (AUTO) 12.5 %; MEAN CORPUSCULAR HEMOGLOBIN 27.1 pg (27.0-31.0); MEAN CORPUSCULAR HGB CONC 31.4 g/dL (32.0-36.0); MEAN CORPUSCULAR VOLUME 86.1 fL (81.0-99.0); MEAN PLATELET VOLUME 8.6 fL (7.9-10.8); MONOCYTES # (AUTO) 0.7 10^3/uL (0.0-1.0); MONOCYTES % (AUTO) 7.5 %; PLT - PLATELET COUNT 425 10^3/uL (130-450); RED BLOOD COUNT 4.12 10^6/uL (4.20-5.40); RED CELL DISTRIBUTION WIDTH 18.3 % (12.0-15.0); WHITE BLOOD COUNT 8.8 x10^3/uL (4.8-10.8)
[2017-11-08 05:48] LABS: ALBUMIN 2.4 g/dL (3.2-5.5); ALBUMIN/GLOBULIN RATIO 0.7 (1.0-2.2); BILIRUBIN,TOTAL 1.3 mg/dL (0.2-1.0); CALCIUM 10.4 mg/dL (8.5-10.3); CREATININE 1.2 mg/dL (0.4-1.0); MAGNESIUM 1.8 mg/dL (1.7-2.8)
[2017-11-08] MEDS ORDERED: METOPROLOL TARTRATE 25 MG TABLET PO SCH (07:25)
[2017-11-08] MEDS: cloNIDine 0.1 MG TABLET PO SCH (08:30)
[2017-11-08] MEDS: HEPARIN 5,000 UNIT/ML VIAL SUBQ SCH (08:46)
[2017-11-08] MEDS: CHOLECALCIFEROL 1,000 UNIT TABLET PO SCH (08:56)
[2017-11-08] MEDS: MULTIVITAMIN TABLET PO SCH (08:56)
[2017-11-08] MEDS: POLYETHYLENE GLYCOL 3350 17 GM PACKET PO SCH (08:56)
[2017-11-08] MEDS: DOCUSATE SODIUM 250 MG CAPSULE PO SCH (08:56)
[2017-11-08] MEDS: ALLOPURINOL 100 MG TABLET PO SCH (08:56)
[2017-11-08] MEDS: COLCHICINE 0.6 MG TABLET PO SCH (08:56)
[2017-11-08] MEDS: LACTOBACILLUS RHAMNOSUS GG CAPSULE PO SCH (08:56)
[2017-11-08] MEDS: PSYLLIUM PACKET PO SCH (08:57)
[2017-11-08] MEDS: SENNA 8.6 MG TABLET PO SCH (08:57)
[2017-11-08] MEDS: MORPHINE 2 MG/ML SYRINGE IVP PRN (10:27)
[2017-11-08] MEDS: SODIUM CHLORIDE FLUSH 0.9% 10 ML SYRINGE IVP SCH (10:27)
--- NOTE | 2017-11-08 10:45 | Discharge Plan ---
"Discharge Plan for SNF / [facility] - DC Plan and Transition Orders Disposition: 03 SNF DC/Xfer Condition: Poor SNF Transition Orders: Admit to: [[facility]] under the care of [Doctor Thelma Bishop] Discharge Diagnosis: [Breast Cancer, metastatic to liver, Pneumonia, HTN, CKD, dementia, CHF] Medicare Certification: I certify that [facility] care is medically necessary on a continuing basis for any of the conditions for which she/he is receiving care during hospitalization. Notify PCP of admission and forward orders to primary provider for signature. Weight on admission and [58.5 kg]. Call PCP immediately if weight increases by [4] pounds or if patient develops dyspnea, chest pain/tightness or edema. House Bowel Program: [Yes] If no BM after 2 days, nurse may give M.O.M. 30ml PO PRN and /or ducolax Supp [address] CT and /or EDILBERTO 250mg P.O., and/or senna 1-2 tabs PO. On day 3 nurse may give repeat above order until residents constipation is resolved. Immunizations: Annual Influenza Vaccine: [Yes]. (between Feb 19 and September 18.) Unless allergy or already given Two-Step PPD: [Yes] per [facility] [id number] or appropriate documentation of approved exceptions Treatments & Other Orders: [may follow up Dr. Thelma Bishop at arrival to the facility, follow up Dr. Mir Zee 2-4 days, follow up oncologist as out-pt.] Oxygen Orders: [PRN] Lab Tests or X-Rays Orders: [follow up PCP] Orthopedic Orders: [n]. Medications: PLEASE REFER TO THE DISCHARGE MEDICATION LIST. Insulin Orders? [No] Diagnosis: Diabetes Initiate hypo and hyperglycemia protocols for BG <70 and BG >375. May check BG prn for signs/symptoms of dysglycemia. Frequency of BG checks: [AC/Meal/HS] Basal Insulin: [] Lantus 100 units / ml inject subq as follows: [] [] Other: [] Correction Insulin: - Select the type of insulin below [Choose: Novolog/Humalog]100 units /ml insulin inject subq per orders indicate below [] LOW DOSE [] MODERATE DOSE [] MODERATE/HIGH DOSE [] HIGH DOSE GB UNITS GB UNITS GB UNITS GB UNITS 61-140 0 UNITS 61-140 0 UNITS 61-140 0 UNITS 61-140 0 UNITS 141-175 1 UNITS 141-175 1 UNITS 141-175 2 UNITS 141-175 3 UNITS 176-225 2 UNITS 176-225 3 UNITS 176-225 4 UNITS 176-225 5 UNITS 226-275 3 UNITS 226-275 5 UNITS 226-275 6 UNITS 226-275 7 UNITS 276-325 4 UNITS 276-325 7 UNITS 276-325 8 UNITS 276-325 9 UNITS 326-375 5 UNITS 326-375 9 UNITS 326-375 10 UNITS 326-375 11 UNITS >375 CONTACT MD >375 CONTACT MD >375 CONTACT MD >375 CONTACT MD Custom Dosing: [Choose: None/Novolog/Humalog] 100 units/ml Insulin inject subq as follows: GB Units 61-140 [] Units 141-175 [] Units 176-225 [] Units 226-275 [] Units 276-325 []Units 326-375 [] Units >375 Contact MD Allergies and Adverse Reactions: Allergies Allergy/AdvReac Type Severity Reaction Status Date / Time No Known Drug Allergies Allergy Verified 12/14/16 09:24 - Medications New Prescriptions: HYDROcod/ACETAM 5/325 [[place] 5/325] 1 tab PO Q4HR PRN #15 tablet PRN Reason: Pain Amox/Clav 500/125 [Augmentin] 1 each PO Q12H #12 tablet Metoprolol Tartrate [Lopressor] 50 mg PO BID #12 tablet Senna [Senokot] 8.6 - 17.2 mg PO DAILY #6 tablet - Diet Type: Geriatric Texture: Regular Liquids: Thin May have monthly special meal: Yes - Therapies | Activity Therapy: Evaluation | Treat if indicated: PT, OT Rehabilitation Potential: Maximize functional status Activity: Activity as Tolerated Additional Instructions: you may follow up Dr. Thelma Bihsop at arrival to the facility, follow up Dr. Mir Zee 2-4 days, follow up oncologist as out-pt."
[2017-11-08] MEDS ORDERED: LISINOPRIL 5 MG TABLET PO SCH (11:00)
--- NOTE | 2017-11-08 11:25 | DISCHARGE SUMMARY ---
"Discharge Summary Discharge Date: 11/08/17 Discharging Provider: PEREYRA Primary Care Provider: Dr. Maile Bishop Condition at Discharge: Poor Discharge Disposition: 03 SNF DC/Xfer [facility] - DIAGNOSES Admission Diagnoses: (1) Tachycardia (2) Altered mental status (3) Breast mass (4) Fall (5) Congestive heart failure (6) Hypertension (7) Multi-infarct dementia Discharge Diagnoses with Status of Each Condition: (1) Breast mass pt had right breast mass. Pt was on palliative care but pt's request to have biopsy to pt. Pt's Biopsy reveals invasive adenocarcinoma. US and CT of abdomen reveals metastatic to liver. all test results were discussed with pt's . pt's told me he will not look for Mastectomy. (2) Pneumonia pt developed pneumonia when she was in the hospital. After treatment. WBC is down to the NML. No fever, chill, 95% sats on room air. pt is prescribed antibiotics to finish the antibiotics course (3) Tachycardia resolved (4) Fall no fall in hospital. pt is at high risk fall. pt is d/c to SNF for further training (5) Congestive heart failure ECHO reveals pt has mild to moderate impaired LF function. Discuss the result with her . Pt has Lisinopril and prescribed Metoprolol. (6) Hypertension when Pt is anxiety and agitated. Her BP is temporarily elevated. Otherwise pt is controlled by current d/c regime, continue to be managed by SNF PCP. (7) Multi-infarct dementia/AMS MRI of brain reveals no acute findings. chronic as her baseline. (8) elevated liver enzyme US and CT of abdomen reveals metastatic masses liver, so that may explains the elevated liver enzyme. discuss all the results with her . - HPI History of Present Illness: please refer from Dr. Richey's HPI for pt. - CONSULTS | PROCEDURES Consultations: Dr. Mir Zee Procedures: right breast biopsy - HOSPITAL COURSE Hospital Course: Ms. Benson was admitted for AMS, uncontrolled HTN and tachycardia, and right breast mass. Pt then had a palliative consulting. But pt's insist to have biopsy for pt. Pt then had biopsy in the hospital. The biopsy report was discussed with pt's . The first looked for Mastectomy as Dr. Zee's documentation, but not for oncologist consult as the time. today the did express he will not look for Mastectomy any more. He requested pt to be d/c to SNF, since he and his caregiver is difficult to take care of her, and pt was evaluated by PT/OT and recommended to SNF for further training. Pt developed pneumonia in the hospital. Then pt was treated for pneumonia and became stable. Pt's tachycardia and BP became controlled after treatment. - ALLERGIES Allergies/Adverse Reactions: Allergies Allergy/AdvReac Type Severity Reaction Status Date / Time No Known Drug Allergies Allergy Verified 12/14/16 09:24 - MEDICATIONS Home Medications: Ambulatory Orders Medication Instructions Recorded Confirmed Lactobacillus Acidophilus 1 tab PO DAILY 12/14/16 10/29/17 [Probiotic Acidophilus] Allopurinol 200 mg PO DAILY 10/29/17 10/29/17 Cholecalciferol (Vitamin D3) 1,000 unit PO DAILY 10/29/17 10/29/17 [Vitajoy Daily D] Colchicine 0.6 mg PO .EVERY OTHER DAY 10/29/17 10/29/17 Cyclobenzaprine HCl 10 mg PO TID PRN 10/29/17 10/29/17 Lisinopril 40 mg PO DAILY 10/29/17 10/29/17 Multivitamin [Theragran] 1 each PO DAILY 10/29/17 10/29/17 Amox/Clav 500/125 [Augmentin] 1 each PO Q12H #12 tablet 11/08/17 HYDROcod/ACETAM 5/325 [[place] 5/325] 1 tab PO Q4HR PRN #15 tablet 11/08/17 Metoprolol Tartrate [Lopressor] 50 mg PO BID #12 tablet 11/08/17 Senna [Senokot] 8.6 - 17.2 mg PO DAILY #6 tablet 11/08/17 - PHYSICAL EXAM AT DISCHARGE General Appearance: positive: No acute distress, Alert. negative: Lethargic Eyes Bilateral: positive: Normal inspection, PERRL, No lid inflammation, Conjunctivae nml ENT: positive: ENT inspection nml, Pharynx nml, No signs of dehydration. negative: Purulent nasal drainage, Pharyngeal erythema, Oral lesions Neck: positive: Nml inspection, Thyroid nml, No JVD, Trachea midline. negative : Thyromegaly, Lymphadenopathy (R), Lymphadenopathy (L), Stiff neck, Swelling/ bruising, Tracheal deviation Respiratory: positive: Chest non-tender, No respiratory distress, Breath sounds nml. negative: Wheezes, Rales, Rhonchi Cardiovascular: positive: Regular rate & rhythm, No murmur, No gallop. negative : Irregularly irregular, Extrasystoles, Tachycardia, Bradycardia, Systolic murmur, Diastolic murmur Peripheral Pulses: positive: 2+ Abdomen: positive: Non-tender, No organomegaly, Nml bowel sounds, No distention. negative: Tenderness, Guarding, Rebound Back: positive: Nml inspection. negative: CVA tenderness (R), CVA tenderness (L ) Skin: positive: Color nml, No rash, Warm, Dry. negative: Cyanosis, Diaphoresis , Pallor Extremities: positive: Non-tender, Nml appearance. negative: Calf tenderness, Joint swelling, Favian's sign/cords Neurologic/Psychiatric: positive: Sensation nml. negative: Sensory loss, Facial droop, Slurred/abnml speech, Depressed mood/affect - LABS Result Diagrams: 11/08/17 05:28 11/08/17 05:28 - FOLLOW UP Follow Up: pt may follow up Dr. Thelma Bishop at arrival to the facility - TIME SPENT Time Spent in Discharge (Minutes): 55"
[2017-11-08 13:45] VITALS: BP 150/74
== END 2017-11-08 13:00 | DRG 56 ==
LOC: EDBD → EDUNIT# → ED 14:43 → MS3 17:58
PROVIDERS: ADMIT Internal Medicine; ATTEND Nurse Practitioner Gerontology
PROC: 0HB Skin and Breast, Excision (ICD-10-PCS; principal; 2017-11-03)
DX: R29.810 Facial weakness (principal); N63.41 Unspecified lump in right breast, subareolar; R41.0 Disorientation, unspecified; R27.0 Ataxia, unspecified; R47.01 Aphasia; R40.2412 Glasgow coma scale score 13-15, at arrival to emergency department; M47.9 Spondylosis, unspecified; I10 Essential (primary) hypertension; I69.311 Memory deficit following cerebral infarction; J18.9 Pneumonia, unspecified organism; I13.0 Hypertensive heart and chronic kidney disease with heart failure and stage 1 through stage 4 chronic kidney disease, or unspecified chronic kidney disease; F01.51 Vascular dementia, unspecified severity, with behavioral disturbance; I50.22 Chronic systolic (congestive) heart failure; C78.7 Secondary malignant neoplasm of liver and intrahepatic bile duct; C50.011 Malignant neoplasm of nipple and areola, right female breast; I69.392 Facial weakness following cerebral infarction; I69.328 Other speech and language deficits following cerebral infarction; R00.0 Tachycardia, unspecified; R47.81 Slurred speech; R42 Dizziness and giddiness; M19.90 Unspecified osteoarthritis, unspecified site; M10.9 Gout, unspecified; N18.9 Chronic kidney disease, unspecified; Y95 Nosocomial condition; Z51.5 Encounter for palliative care; Z66 Do not resuscitate; Z85.3 Personal history of malignant neoplasm of breast; Z90.12 Acquired absence of left breast and nipple; Z91.81 History of falling; Z78.1 Physical restraint status; Z79.899 Other long term (current) drug therapy
CPT/HCPCS: 36415; 51701; 70450; 70551; 71045; 72125; 74176; 76705; 80048; 80053; 80061; 81001; 81003; 82140; 82550; 83036; 83605; 83721; 83735; 83880; 84443; 84484; 84550; 85025; 85610; 85730; 87040; 87086; 93005; 93306; 99222; 99284; 99285

== ENCOUNTER 2017-11-08 13:15 | Outpatient (CLI) | payer MEDICARE, OTHER | END 2017-11-08 13:16 | LOC: EMS 13:15 | PROVIDERS: ATTEND Surgery | DX: R53.1 Weakness (principal); C80.1 Malignant (primary) neoplasm, unspecified; Z74.01 Bed confinement status | CPT/HCPCS: A0425; A0428 ==